=== PATIENT | male | born 1955 | race African-American/Black ===

== ENCOUNTER 2019-08-27 11:27 | Inpatient (IN) ==
[2019-08-27] MEDS ORDERED: NS 1,000 ML IV ONE (12:09)
--- NOTE | 2019-08-27 12:19 | PROVIDER DOCUMENTATION ---
HPI-General Adult - General Chief Complaint: SEPSIS ALERT - D Stated Complaint: CHILLS,RT SIDE PAIN Time Seen by Provider: 08/27/19 12:13 Source: patient Allergies/Adverse Reactions: Patient Allergies Allergy/AdvReac Type Severity Reaction Status Date / Time No Known Allergies Allergy Verified 08/27/19 11:40 Home Medications: Home Medication List Medication Instructions Recorded Confirmed Last Taken Type Amlodipine [Norvasc] 1 tab PO DAILY 08/27/19 08/27/19 Unknown History Atorvastatin Calcium [Lipitor] 1 tab PO DAILY 08/27/19 08/27/19 Unknown History Tamsulosin [Flomax] 1 cap PO DAILY 08/27/19 08/27/19 Unknown History - History of Present Illness -Gen Adult Nature of Presenting Problems: He presents to the ed with c/o fever, chills, and malaise worsening over the past week. He states that he was recently told that he needed to be on dialysis, but states that he refused this. He states that he has pain on his right flank. He denies any cough. Location of Pain/Injury: reports: chest, other (right flank) Pain Radiation: reports: no radiation Quality of Pain: reports: sharp Severity: reports: moderate Onset/Duration: reports: 1 week ago Timing: reports: still present Context/Activities at Onset: reports: none Modifying Factors: improves with: nothing Associated Symptoms: reports: back/neck pain, chest pain, fever/chills, malaise, muscle aches, nausea, weakness. denies: diaphoresis, EENT symptoms, headaches, pain with inspiration, vomiting Similar Symptoms Previously?: No Recently seen or treated by another doctor?: No Review of Systems - Adult - REVIEW OF SYSTEMS - ADULT Constitutional: reports: see HPI, chills, fever, fatique Eyes: reports: no symptoms reported Ears, Nose, Mouth & Throat: reports: no symptoms reported Cardiovascular: reports: no symptoms reported Respiratory: reports: no symptoms reported Gastrointestinal: reports: see HPI Genitourinary: reports: no symptoms reported Musculoskeletal: reports: see HPI Integumentary: reports: no symptoms reported Neurological: reports: no symptoms reported Psychiatric: reports: no symptoms reported Endocrine: reports: no symptoms reported Hematologic/Lymphatic: reports: no symptoms reported Allergic/Immunologic: reports: no symptoms reported All Other Systems: Reviewed and Negative Past History - Adult - PAST MEDICAL HISTORY-ADULT Review of Records: reports: Old Records Reviewed, Nursing Assessment Review, Medications Reviewed, Social history reviewed & non-contributory. Major Childhood Illnesses: reports: denies history Cardiovascular: reports: denies history Respiratory: reports: denies history Gastrointestinal: reports: denies history Obstetrical/Gynecological: reports: denies history Genitourinary: reports: denies history Musculoskeletal: reports: denies history Neurological: reports: denies history Endocrine/Immune: reports: denies history Other Conditions: reports: denies history - IMMUNIZATION STATUS Childhood Immunizations: See Nurse Assessment Flu Vaccine: See Nurse Assessment - FAMILY HISTORY Family History: reviewed, not pertinent - SOCIAL HISTORY Smoking: denies Substance Use: none/never Alcohol Use Frequency: never Living Situation: family Physical Exam-General - PHYSICAL EXAM-ADULT Initial Vital Signs Reviewed: Yes - CONSTITUTIONAL General Appearance: appears well, alert, no apparent distress - EYES Eyes: PERRL/EOMI - HEAD, EARS, NOSE, MOUTH & THROAT HENMT: normocephalic/atraumatic, moist mucous membranes, normal ENT inspection - NECK Neck: non-tender, full range of motion, supple - RESPIRATORY Respiratory: chest non-tender, lungs clear, normal breath sounds - CARDIOVASCULAR Cardiovascular: normal peripheral pulses, regular rate, rhythm, no edema - GASTROINTESTINAL (ABDOMEN) Abdominal Exam: normal bowel sounds, non tender - LYMPHATIC Lymphatic: no adenopathy - MUSCULOSKELETAL Back Exam: normal inspection, no CVA tenderness, no vertebral tenderness Extremity: normal range of motion, non-tender, normal gait, normal inspection - SKIN Integumentary: normal color, normal turgor, warm/dry - NEUROLOGIC Neurologic: grossly normal - PSYCHIATRIC Psych/Mental Status: normal mood/affect, normal thought content Progress - PLAN OF CARE/RESULTS Progress/Plan/Lab Results: Vital Signs - 8 hr 08/27/19 11:36 Temperature 100.5 F H Pulse Rate 134 H Respiratory Rate 36 H Blood Pressure 150/84 O2 Sat by Pulse Oximetry 95 Orders Category Date Time Status Cardiac Monitoring DIRECTED Care 08/27/19 12:11 Active IV Insertion ORDERED Care 08/27/19 12:11 Active Notify MD of + Sepsis Screen NOW Care 08/27/19 12:11 Active CHEST-PORTABLE [RAD] Stat Exams 08/27/19 12:09 Ordered BLOOD CULTURE [BLDCUL] Stat Lab 08/27/19 12:09 Uncollected CBC WITH DIFF [HEME] Stat Lab 08/27/19 12:09 Uncollected CK PROFILE [SP CHEM] Stat Lab 08/27/19 12:11 Uncollected COMPREHENSIVE METABOLIC PANEL [CHEM] Stat Lab 08/27/19 12:09 Uncollected LACTATE, PLASMA [CHEM] Stat Lab 08/27/19 12:09 Uncollected MAGNESIUM [CHEM] Stat Lab 08/27/19 12:09 Uncollected PROTIME WITH INR [COAG] Stat Lab 08/27/19 12:09 Uncollected PTT [COAG] Stat Lab 08/27/19 12:11 Uncollected TROPONIN T Stat Lab 08/27/19 12:09 Uncollected UA NIMS W/REFLEX CULT [URINALYSIS] Stat Lab 08/27/19 12:09 Uncollected 0.9% Sodium Chloride Inj [Ns] 1,000 ml Med 08/27/19 12:09 Active IV 999 mls/hr Oxygen Device Stat Oth 08/27/19 12:11 Active Result Diagrams: 08/27/19 12:35 08/27/19 12:35 - XRAY 1 XRAY: Bilateral XRAY Study: Chest Impression: Abnormal (FINDINGS: The lungs are well expanded. There are right hilar and apical surgical clips. The heart is not enlarged. The vessels are not distended. There are mild increased markings in the right base. No consolidation .. No effusion identified. IMPRESSION: Small right basilar infiltrate) - CONSULTS/PCP/HOSPITALIST Notification #1 *Consult/PCP/Hospitalist*: Dr. Carrillo Time Discussed: 14:00 Consult Disposition: Admit Departure - Departure Date of Disposition Decision: 08/27/19 Time of Disposition Decision: 14:02 DIAGNOSIS: End stage renal disease, Hyperkalemia Pneumonia Qualifiers: Pneumonia type: due to unspecified organism Laterality: right Lung location: unspecified part of lung Qualified Code(s): J18.9 - Pneumonia, unspecified organism Disposition: ADMITTED INPATIENT 09 Certified Medical Emergency: Emergent Condition: Stable Referrals and Follow-Ups: Johnny Dobbs MD [Primary Care Provider] - - Critical Care Note This patient required my direct & personal management of CC.: No Attestation - Physician/ JOHANA Attestation Patient care was provided by Advanced Practice Provider:: Yes Advanced Practice Provider:: Noah Ordonez Advanced Practice Provider documentation review:: The Mid-level provider documentation, treatment plan and medical decision making was reviewed by the physician who agrees with all treatment and medical decision making by the MLP. The physician spent face to face time with patient:: No Advanced Practice Provider documentation review:: Supervising physician onsite and consulted in the evaluation and care of this patient. The physician did not have a face to face encounter with the patient.
--- NOTE | 2019-08-27 12:26 | Diag Imaging Result Doc PS360 ---
EXAM: CHEST-PORTABLE HISTORY: sepsis alert TECHNIQUE: Chest single view COMPARISON: 02/16/2019 FINDINGS: The lungs are well expanded. There are right hilar and apical surgical clips. The heart is not enlarged. The vessels are not distended. There are mild increased markings in the right base. No consolidation.. No effusion identified. IMPRESSION: Small right basilar infiltrate Electronically signed by Holland Joyner 08/27/2019 12:23 PM
[2019-08-27 13:07] LABS: INR 1.11; PROTIME 14.4 Seconds (11.0-16.0)
[2019-08-27 13:24] LABS: BASO# 0.05 X1000 (0.0-0.2); BASO% 0.4 % (0.0-0.8); EOS# 0.03 X1000 (0.0-0.7); EOS% 0.2 % (0.0-10.0); HEMATOCRIT 37.3 % (42.0-52.0); HEMOGLOBIN 12.4 g/dL (14.0-18.0); IMM GRAN# 0.04 X1000 (0.0-0.04); IMM GRAN% 0.3 % (0.0-0.5); LYMPH# 0.79 X1000 (1.2-3.4); LYMPH% 6.4 % (20.5-51.1); MCH 26.3 PG (27-31); MCHC 33.2 g/dL (33-37); MCV 79.2 FL (81-99); MONO# 0.52 X1000 (0.11-0.59); MONO% 4.2 % (1.7-9.3); MPV 10.6 FL (7.4-10.4); NEUT# 10.84 X1000 (1.4-6.5); NEUT% 88.5 % (42.2-75.2); PLT 291 X1000 (130-400); RBC 4.71 XMIL (4.7-6.1); RDW 14.9 % (11.5-14.5); WBC 12.27 X1000 (4.8-10.8)
[2019-08-27 13:33] LABS: LYMPHS 6 % (21-51); MONO 3 % (1-9); SEGS 91 % (42-75)
[2019-08-27 13:50] LABS: URINE SOURCE CLEAN CATCH
[2019-08-27 13:53] LABS: ALBUMIN 3.5 g/dL (3.5-5.0); CALCIUM 9.4 mg/dL (8.8-10.2); CREATININE 4.1 mg/dL (0.7-1.2); POTASSIUM 6.3 mmol/L (3.5-5.1); TOTAL BILIRUBIN 0.29 mg/dL (0.20-1.00); TOTAL PROTEIN 6.9 g/dL (6.3-8.3)
[2019-08-27 14:00] LABS: BILIRUBIN URINE NEGATIVE (NEGATIVE); BLOOD URINE TRACE (NEGATIVE); COLOR YELLOW; GLUCOSE URINE NEGATIVE (NEGATIVE); KETONE URINE NEGATIVE (NEGATIVE); LEUKOCYTES URINE NEGATIVE (NEGATIVE); NITRITE URINE NEGATIVE (NEGATIVE); PROTEIN URINE 70 mg/dL (NEGATIVE); SP GRAVITY URINE 1.012; TURBIDITY URINE CLEAR (CLEAR); UROBILINOGEN URINE NORMAL (NORMAL)
[2019-08-27 14:01] LABS: UR EPITHELIAL CELLS <10 /HPF (<10); URINE BACTERIA NEGATIVE /HPF; URINE RBC <10 /HPF (<10); URINE WBC <10 /HPF (<10)
[2019-08-27] MEDS ORDERED: VELTASSA PO ONE ×2 (14:13→20:00)
[2019-08-27] MEDS ORDERED: ZITHROMAX 500 MG/NS 500 MG/250 ML IVPB IV ONE (14:25)
[2019-08-27] MEDS ORDERED: ROCEPHIN 1 GM in NS 50 ML IV ONE (14:25)
[2019-08-27] MEDS ORDERED: NS 50 ML ONE (14:30)
[2019-08-27] MEDS ORDERED: ROCEPHIN ONE (14:30)
[2019-08-27] MEDS ORDERED: KAYEXALATE PO ONE (14:49)
[2019-08-27] MEDS ORDERED: DILAUDID IV PRN (14:51)
[2019-08-27] MEDS ORDERED: NICODERM PATCH TD PRN (14:52)
[2019-08-27] MEDS ORDERED: DUONEB (A & A) INH ONE (14:57)
[2019-08-27] MEDS ORDERED: SODIUM CHLORIDE 0.9% INJ SCH (15:00)
--- NOTE | 2019-08-27 15:17 | HISTORY AND PHYSICAL ---
CHIEF COMPLAINT: Right-sided chest pain, shortness of breath, cough, wheezing, low-grade fever for the last few days. HISTORY OF PRESENT ILLNESS: He is a 64-year-old, , male patient of Dr. Dobbs with chronic kidney disease under the care of Dr. Scott. He has been refusing for dialysis. Came in with the above symptoms. Patient was seen in the emergency room. He was tachycardic, hypertensive. He had a low-grade fever. White cell count 12,000. Chest x-ray, possible infiltrate. However, he had scarring noted from the previous thoracotomy scar by Dr. Kent. I do not have the details. Potassium 6.1, creatinine 4.0, and he is willing to go for dialysis if he needs to. As a result, he has been hospitalized for right lower lobe pneumonia with pleurisy and also treat for hyperkalemia and evaluation of chronic kidney disease. PAST MEDICAL HISTORY: 1. Tobacco abuse. 2. Hypertension. 3. BPH. 4. Hyperlipidemia. 5. Chronic kidney disease stage 5. PAST SURGICAL HISTORY: Right thoracotomy scar by Dr. Kent, removed some type of cancer. MEDICINES: Lipitor 20 mg daily, amlodipine 5 mg daily, Flomax 0.4 daily. ALLERGIES: Not known. SOCIAL HISTORY: Single. Disabled. Smoking 1 pack a day. No drug abuse, alcohol abuse. FAMILY HISTORY: Both parents of old age with a stroke. REVIEW OF SYSTEMS: HEENT: No headache. No vision problem. No earache. No sore throat. Neck: No neck pain. No goiter. Cardiopulmonary: Right-sided chest pain, shortness of breath, cough, wheezing. GI: No nausea, vomiting, abdominal pain. No constipation. : History of BPH symptoms. No swelling of feet. No joint pain. Neurologic: No focal symptoms or weakness. PHYSICAL EXAMINATION: VITAL SIGNS: Low-grade fever, tachycardic, hypertension, pulse is 130, blood pressure is 138/99. HEENT: Atraumatic, normocephalic. Pupils equal, reactive to light. Nose and Throat: Postnasal drainage. No teeth noted. NECK: Supple. No goiter. No lymphadenopathy. JVD is not elevated. CHEST: There is expiratory wheezing. Extensive pleurisy on the right side and a thoracotomy scar noted on the right side of the chest. HEART: Sounds are regular. Tachycardic. GASTROINTESTINAL: Belly is soft, nontender. Good bowel sounds. EXTREMITIES: No peripheral edema. NEUROLOGIC: No obvious deficits noted. INVESTIGATIONS: White cell count 12.2, hematocrit 37.3, platelets 291,000. Sodium 134, potassium 6.3, chloride 102, BUN 60, creatinine 4.1, glucose 114. LFTs and cardiac enzymes were negative. Urinalysis is clear. EKG: Sinus tachycardia, nothing acute. Chest x-ray: There are right hilar, apical surgical clips and scarring, and possible mild infiltrate. Renal ultrasound: Hyperechoic atrophic kidneys, bilateral renal cysts in 2017. ASSESSMENT AND PLAN: 1. A 64-year-old, black gentleman admitted to the hospital with right-sided chest pain, pleurisy with underlying infiltrate. Plan is intravenous Rocephin, incentive spirometry, intravenous steroids, and bronchodilators. 2. Hypertension, on Norvasc. 3. Hyperlipidemia, on Lipitor. 4. Nicotine abuse, on Nicotrol patch. 5. Hyperkalemia. Kayexalate was given. 6. End-stage kidney disease. Dr. Scott consulted. He is willing to go for dialysis. Consult with Dr. Scott. We will also get ultrasound of the kidneys. Dr. Scott and Dr. Dobbs are going to follow up. cc: Forest Carrillo MD
[2019-08-27] MEDS: NEXIUM IV SCH (16:02)
[2019-08-27] MEDS: NS 1,000 ML IV SCH (16:03)
[2019-08-27] MEDS ORDERED: TYLENOL PO PRN (16:51)
--- NOTE | 2019-08-27 18:57 | EKG Report ---
Test Performed on : 08/27/2019 11:50:25 AM Test Reason : cp Blood Pressure : / mmHG Vent. Rate : 132 BPM Atrial Rate : 132 BPM P-R Int : 136 ms QRS Dur : 076 ms QT Int : 294 ms P-R-T Axes : 084 053 075 degrees QTc Int : 435 ms Sinus tachycardia. Possible Anterior infarct , age undetermined ST & T wave abnormality, consider lateral ischemia Abnormal ECG No previous ECGs available Unconfirmed Result
[2019-08-27 19:02] LABS: ALBUMIN 2.5 g/dL (3.5-5.0); CALCIUM 8.3 mg/dL (8.8-10.2); CREATININE 4.4 mg/dL (0.7-1.2); PHOSPHORUS 3.2 mg/dL (2.7-4.5); POTASSIUM 5.4 mmol/L (3.5-5.1)
[2019-08-27] MEDS ORDERED: LOKELMA POWDER PACKET PO SCH (20:00)
[2019-08-27] MEDS: SOLU-MEDROL IV SCH (20:34)
--- NOTE | 2019-08-28 06:59 | PROGRESS NOTE ---
DATE: 08/28/2019 SUBJECTIVE: A 64-year-old, gentleman admitted with chest congestion, cough, fever, chills, expectoration, a small amount of blood, chest pain. The patient was sick for 2 to 3 days. The patient also had sharp chest wall pain. Mild nausea. No vomiting. No dysuria or hematuria. The patient does have hypertension, hyperlipidemia, chronic kidney disease, BPH, refusing dialysis. No diarrhea, blood, or mucus in the stool. No nausea or vomiting. Admission history and physical noted. OBJECTIVE: Vital Signs: Blood pressure 121/63, pulse 93, respirations 23, temperature 98 degrees. Skin: No rash or petechiae. HEENT: Head atraumatic, normocephalic. [place] conjunctivae. Anicteric sclerae. Pupils reacting to light. Neck: Supple. No JVD. Lungs: Bibasilar crepitations. CVS: S1 and S2 heard. Abdomen: Soft, nontender. Bowel sounds present. Extremities: No cyanosis, clubbing. No acute DVT. 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 Able to move all 4 limbs. Laboratory Data: Done yesterday, noted. Patient had leukocytosis with left shift. PTT 41, PT/INR 1.11. Blood gas: PH 7.32, pCO2 of 29, PO2 was 133. Electrolytes: BUN was 5.4. Urinalysis results reviewed. Chest x-ray: Small right basilar infiltrate. ASSESSMENT: The patient's problems include: 1. Right basilar pneumonia. 2. Chronic kidney disease stage 5. 3. Hypertension. 4. Benign prostatic hypertrophy. 5. Hyperlipidemia. PLAN: The patient's chest pain was more of pleuritic. Continue current treatment. Close observation. IV antibiotics. Continue smoking cessation. The patient understood and agreed. cc: Johnny Dobbs MD
[2019-08-28 07:09] LABS: ALB/GLOB RATIO 0.7; ALBUMIN 2.7 g/dL (3.5-5.0); BASO# 0.02 X1000 (0.0-0.2); BASO% 0.2 % (0.0-0.8); CALCIUM 8.8 mg/dL (8.8-10.2); HEMATOCRIT 34.2 % (42.0-52.0); HEMOGLOBIN 11.2 g/dL (14.0-18.0); IMM GRAN# 0.04 X1000 (0.0-0.04); IMM GRAN% 0.3 % (0.0-0.5); LYMPH# 0.46 X1000 (1.2-3.4); LYMPH% 3.7 % (20.5-51.1); MCH 26.1 PG (27-31); MCHC 32.7 g/dL (33-37); MCV 79.7 FL (81-99); MONO# 0.25 X1000 (0.11-0.59); MPV 10.8 FL (7.4-10.4); NEUT% 93.8 % (42.2-75.2); PLT 255 X1000 (130-400); RBC 4.29 XMIL (4.7-6.1); RDW 14.9 % (11.5-14.5); TOTAL BILIRUBIN 0.26 mg/dL (0.20-1.00); TOTAL PROTEIN 6.7 g/dL (6.3-8.3); WBC 12.27 X1000 (4.8-10.8)
[2019-08-28 07:28] LABS: POTASSIUM 6.3 mmol/L (3.5-5.1)
[2019-08-28 07:34] LABS: BANDS 2 % (0-1); LYMPHS 2 % (21-51); SEGS 96 % (42-75)
[2019-08-28 07:35] LABS: LARGE PLATELETS 1+
--- NOTE | 2019-08-28 07:47 | EKG Report ---
Test Performed on : 08/28/2019 06:50:26 AM Test Reason : cp Blood Pressure : / mmHG Vent. Rate : 104 BPM Atrial Rate : 104 BPM P-R Int : 152 ms QRS Dur : 080 ms QT Int : 354 ms P-R-T Axes : 084 049 082 degrees QTc Int : 465 ms Sinus tachycardia. Lateral T wave assymetry Borderline ECG When compared with ECG of 27-AUG-2019 11:50, (Unconfirmed) T wave inversion no longer evident in Lateral leads Confirmed by Khloe HARRISON, Miguel Penny ([id number]) on 08/28/2019 8:56:21 AM
[2019-08-28] MEDS ORDERED: KAYEXALATE PO ONE (07:49)
[2019-08-28] MEDS ORDERED: HUMULIN R IV ONE (08:03)
[2019-08-28] MEDS ORDERED: D50W SYRINGE IV ONE (08:03)
[2019-08-28] MEDS ORDERED: ALBUTEROL 0.5% INH CONC FOR HYPERKALEMIA INH ONE (08:04)
--- NOTE | 2019-08-28 08:09 | Diag Imaging Result Doc PS360 ---
EXAM: CHEST-2 VIEWS HISTORY: hypoxia TECHNIQUE: Chest two views COMPARISON: 08/27/2019 FINDINGS: The lungs are well expanded. There are right hilar and apical surgical clips. The heart is not enlarged. The vessels are not distended. Scarring versus small infiltrates inferiorly in the right lung.. No pleural effusions. IMPRESSION: Stable chest Electronically signed by Holland Joyner 08/28/2019 8:06 AM
[2019-08-28] MEDS: SYMBICORT 160/4.5 MICROGM INHALER INH SCH ×2 (08:45→19:51)
[2019-08-28] MEDS: SOLU-MEDROL IV SCH ×2 (08:50→21:02)
[2019-08-28] MEDS: NORVASC PO SCH (08:51)
[2019-08-28] MEDS: ZITHROMAX PO SCH (08:51)
[2019-08-28] MEDS: FLOMAX PO SCH (08:58)
[2019-08-28] MEDS: SODIUM BICARBONATE PO SCH ×2 (08:58→21:02)
--- NOTE | 2019-08-28 09:18 | CONSULTATION ---
DATE OF CONSULTATION: 08/28/2019 REASON FOR ADMISSION: Right-sided chest pain associated with increased work of breathing, low- grade fever times 2 to 3 days before his admission. REASON FOR CONSULT: Acute kidney injury on chronic kidney disease stage 4B 5. CONSULTING PHYSICIAN: Dr. Carrillo. HISTORY OF PRESENT ILLNESS: Mr. Veliz is a 64-year-old male who is known to our outpatient services for chronic kidney disease stage 4/5. Patient's baseline creatinine has been approximately 3.2 to 3.8 in our office and has been followed on a monthly basis. Last time patient was seen in our office was May. The patient's last creatinine had taken a bump from 3.5 up to 5.8 with an estimated GFR of 12%. Patient had been set up for an AV fistula mapping and once completed, was to be referred to a surgeon for an AV fistula placement to start dialysis. He was scheduled back in 1 month in June. He did not show. He received a no- show letter and had not been seen in our office. Unfortunately, during this period of time patient states that he has not been having any difficulty with uremic symptoms except occasional dyspnea on exertion, but now appears to have presented to the emergency room with a new onset chest pain, right-sided. It does radiate from the abdomen and the right chest into the midabdominal area. He denies any diaphoresis, any fever or chills. States that his breathing has improved though he has been at rest since hospitalization. Denies any nausea, vomiting, or diarrhea. The patient has no complaints of swelling. States his blood pressure is well at home. In the emergency room he was found to be tachycardic and hypertensive, low-grade fever was present. White cell count was 12. Chest x-ray showed possible mild infiltrates. His potassium on arrival was 6.1 with a creatinine of 4. He did indicate that he would be willing to start dialysis if indicated and needed during this hospital stay. The patient was subsequently hospitalized for right lower lobe pneumonia with pleurisy for hyperkalemia. This was treated medically and the patient's potassium came down to 5.4 yesterday evening, now up to 6.3. His BUN and creatinine remain stable with a BUN of 59 and creatinine of 4. PAST MEDICAL HISTORY: 1. Chronic kidney disease stage 4B/5. Patient's baseline creatinine last in our office was 5.8, currently at 4, which is close to his baseline prior to May. 2. Tobacco abuse. 3. Hypertension. 4. BPH. 5. Hyperlipidemia. 6. Anemia of chronic disease. PAST SURGICAL HISTORY: 1. Right thoracotomy scar by Dr. Kent. 2. Removed some type of cancer in the past. SOCIAL HISTORY: He is single. He lives with his cousin. Denies alcohol or illicit drug use. Current smoker 1 pack per day. FAMILY HISTORY: Both parents from a stroke. ALLERGIES: Listed as no known drug allergies. HOME MEDICATIONS: 1. Atorvastatin. 2. Norvasc. 3. Flomax. REVIEW OF SYSTEMS: Times 10 with pertinent positives listed above in the HPI. MOST RECENT VITAL SIGNS: Temperature 98 degrees, blood pressure 121/63, heart rate 93, respirations 23. He is on 2 L nasal cannula. Last recorded saturation 97%. He has had 856 in, 310 out to void. LABS: Sodium is 139, potassium 6.3, chloride 110, CO2 16, BUN 59, creatinine 4, glucose 121, anion gap of 13, calcium 8.8, albumin 2.7, white count 12.27, hemoglobin 11.2, hematocrit 34.2, with a platelet count of 255,000. ABGs pH 7.32, CO2 29, PO2 133 with a bicarbonate of 17.1 on 2 L. PHYSICAL EXAMINATION: General: This is a 64-year-old male who is currently resting quietly in bed. He appears chronically ill. He is in no acute distress. Skin: Warm and dry. HEENT: Normocephalic, atraumatic. Conjunctiva is pale pink. He has YOSEPH. Mucous membranes are moist. Poor dentition. Neck: Supple. Trachea midline. No evidence of JVD. Cardiovascular: Regular rate and rhythm. He is tachycardic on the monitor. No murmur or gallop appreciated. Lungs: Are clear to auscultation bilaterally. Equal excursion on O2. Diminished to the bases. Abdomen: Soft, nontender upon palpation. Genitourinary: Not inspected. The patient has adequate urine output documented to void. Extremities: No edema. No clubbing or cyanosis. Neurological: He is a good historian. Alert and oriented x3. LABORATORY: The patient had a renal ultrasound indicating hyperechoic atrophic kidneys bilaterally with bilateral renal cysts from 2017. ASSESSMENT AND PLAN: 1. Chronic kidney disease stage 4B/5. Patient's BUN and creatinine are stable. BUN of 59 with a creatinine of 4. We will have patient start a 24 hour urine collection to evaluate his renal status during this hospital stay. We will plan to get venous mapping done. The patient has no acute symptoms requiring hemodialysis. We will continue to monitor and follow. He does state that he is willing to have hemodialysis. 2. Electrolytes and acid-base balance. The patient's potassium is 6.3. It appears that has not been treated this a.m. We will order an amp of D50 10 units of regular insulin, albuterol, hyperkalemia protocol, and will start the patient on Veltassa on a daily basis. We will recheck labs this afternoon at 2 and reevaluate the patient's status. 3. Acid-base balance CO2 of 16. We will start him on sodium bicarbonate 1300 mg b.i.d. Continue to monitor. 4. Anemia. This is close to target. 5. Pneumonia. This is currently being treated on renal dosed antibiotics. I would like to thank you for allowing us to follow with this patient. Dictated by GERMANIA Hamilton for Jose Carlos Scott MD Face to face encounter, data reviewed, discussed with Paul Ch on 08/28/19. I agree with the above assessment and plan of care. cc: GERMANIA Hamilton MD Bharat K. Vakharia, MD MTDD
[2019-08-28] MEDS: NS 1,000 ML IV SCH (12:35)
--- NOTE | 2019-08-28 13:53 | ECHO REPORT ---
ORDER DATE: 08/27/2019 MEASUREMENTS: 1. Interventricular septum 1.0. 2. Left ventricular posterior wall 1.0. 3. Diastolic diameter 5.3. 4. Left atrium 3. 5. Aorta 3.6. SUMMARY: 1. Aortic valve leaflets were trileaflet. 2. Mitral valve was normal. 3. Tricuspid valve was normal. 4. Pulmonic valve was normal. 5. Doppler studies revealed mild tricuspid regurgitation. Peak velocity across the tricuspid valve was 3 m/sec. 6. Pulmonary artery systolic pressure of 46 to 50 mmHg. 7. Normal left ventricular cavity size with reduced systolic function. Estimated ejection fraction of 40%. There is mild global hypokinesis. 8. There is moderate mitral regurgitation. 9. Peak velocity across the aortic valve less than 2 m/sec. There is no aortic stenosis. There is moderate aortic regurgitation. 10. There is mild tricuspid regurgitation. 11. Mild pulmonary regurgitation. 12. There is no pericardial effusion or obvious intracardiac mass or thrombus seen. cc: MD Forest Vasquez MD Bharat K. Vakharia, MD
[2019-08-28] MEDS: VELTASSA PO SCH (14:22)
[2019-08-28] MEDS: ROCEPHIN 1 GM in NS 50 ML IV SCH (14:23)
[2019-08-28] MEDS: NEXIUM IV SCH (14:23)
[2019-08-28 14:27] LABS: ALBUMIN 2.8 g/dL (3.5-5.0); CALCIUM 8.5 mg/dL (8.8-10.2); CREATININE 4.3 mg/dL (0.7-1.2); PHOSPHORUS 4.2 mg/dL (2.7-4.5)
[2019-08-28 16:33] LABS: CALCIUM 8.9 mg/dL (8.8-10.2); CREATININE 4.5 mg/dL (0.7-1.2); POTASSIUM 4.1 mmol/L (3.5-5.1)
[2019-08-28 18:05] LABS: HEMOGLOBIN A1C 5.9 % (4.8-6.0)
[2019-08-28] MEDS ORDERED: LIPITOR PO SCH (21:00)
[2019-08-29 07:19] LABS: ALBUMIN 2.2 g/dL (3.5-5.0); CALCIUM 8.8 mg/dL (8.8-10.2); CREATININE 4.5 mg/dL (0.7-1.2)
[2019-08-29] MEDS: SYMBICORT 160/4.5 MICROGM INHALER INH SCH ×2 (08:30→19:17)
--- NOTE | 2019-08-29 08:39 | PROGRESS NOTE ---
DATE: 08/29/2019 Mr. Veliz is feeling better. Chest congestion and cough improving. No typical chest pain. Denied any fever or chills. No nausea or vomiting. Oral intake is fair. Patient is tachycardic at time. OBJECTIVE: His vital signs noted. Neck: Is supple. No JVD. Lungs: Bilateral good air entry present. Occasional wheezing. CVS: S1 and S2 heard. Abdomen: Soft, nontender. Bowel sounds present. 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 LABORATORY DATA: Done yesterday noted. His hyperkalemia improving. Blood gas also noted. Patient admitted with chest pain. AR ruled out by negative cardiac isoenzymes. The patient does have chronic kidney disease. Hyperkalemia improved. Acute bronchitis. Chest x-ray was negative for pneumonia. Tachycardia, I am going to add beta kathy. Continue the rest of the treatment and close observation. PLAN: Overall plan discussed with the patient and he is in agreement. cc: Johnny Dobbs MD
[2019-08-29] MEDS: SODIUM BICARBONATE PO SCH ×2 (08:50→20:12)
[2019-08-29] MEDS: ZITHROMAX PO SCH (08:50)
[2019-08-29] MEDS: TOPROL XL PO SCH (08:50)
[2019-08-29] MEDS: NORVASC PO SCH (08:50)
[2019-08-29] MEDS: PREDNISONE PO SCH (08:50)
[2019-08-29] MEDS: FLOMAX PO SCH (08:51)
[2019-08-29 09:03] LABS: BLOOD TYPE ARTERIAL; SAMPLE BLOOD; pH(98.6) 7.32 (7.35-7.45)
[2019-08-29 09:04] LABS: HCO3-(ACT) 17.1 mmoll (20.0-26.0); METHB 1.1 % (0.0-1.5); O2(CT) 15.4 mL/dL (15.0-23.0); O2HB 96.8 % (95.0-99.0); PCO2(98.6) 29 mmHg (35-45); PO2(98.6) 133 mmHg (60-100); SAO2 99.5 % (95.0-100.0); THB 11.1 g/dL (11.5-17.4)
[2019-08-29 09:05] LABS: ALLEN TEST YES; MODALITY CANNULA
[2019-08-29 09:36] LABS: UR CREATININE 59.4 mg/dL (14-26); UR CREATININE TOTAL 784.1 mg/24 (800-1800); UR PROTEIN 36.8 mg/dL
[2019-08-29 09:37] LABS: CREATININE 4.5 mg/dL (0.7-1.2)
[2019-08-29] MEDS: VELTASSA PO SCH (13:54)
[2019-08-29] MEDS: ROCEPHIN 1 GM in NS 50 ML IV SCH (15:37)
[2019-08-29] MEDS: NEXIUM IV SCH (17:09)
--- NOTE | 2019-08-29 20:29 | NEPHROLOGY PROGRESS NOTE ---
DATE: 08/29/2019 TIME SEEN: 0630. SUBJECTIVE: Mr. Veliz is resting quietly in bed. States that he is feeling well. Denies chest pain or increased work of breathing. VITAL SIGNS: Temperature 98 degrees, blood pressure 125/76, heart rate 113, respirations 26. He is on 2 L nasal cannula. Last recorded saturation 95%. He has had 150 in and 250 out to void. LABS: Sodium is 136, potassium 5, chloride is 105, CO2 16, BUN 65, creatinine 4.5, glucose 144. The patient's anion gap is 15. His calcium is 8.8, phosphorus is 5, albumin 2.2. The patient had a 24 hour urine showing a creatinine clearance of 12% with a total proteinuria of 486. This appears to be an inadequate sample with a total urine less than 800 mL. Blood cultures are negative after 48 hours. PHYSICAL EXAMINATION: General: This is a 64-year-old male, resting quietly in bed. He appears chronically ill, in no acute distress. Skin: Warm and dry. HEENT: Normocephalic, atraumatic. Conjunctiva is pale. He has YOSEPH. Mucous membranes are dry. Poor dentition. Neck: Supple. Trachea midline. No evidence of JVD. Cardiovascular: Regular rate and rhythm. Lungs: Clear to auscultation bilaterally. Equal excursion on room air today. Abdomen: Soft, nontender. Positive bowel sounds. Genitourinary: Not inspected. Adequate urine out to void. Extremities: No edema. No clubbing or cyanosis. Neurological: He is alert to person, place, and most recent events. ASSESSMENT AND PLAN: 1. Chronic kidney disease stage 4B/5. The patient's BUN and creatinine are stable. Creatinine remains in the 4.5 range. A 24 hour urine appears to be an inadequate sample with a creatinine clearance of 12%. The patient has no symptoms of uremia. We have requested that he keep strict inputs and outputs. We also have requested vein mapping during this hospital stay. 2. Electrolytes and acid-base balance. The patient's hyperkalemia has been controlled with Veltassa. We continue on sodium bicarbonate. We will continue to monitor. 3. Anemia. This is stable. 4. Pneumonia. He is on renal dosed antibiotics. I would like to thank you for allowing us to follow with this patient. Dictated by GERMANIA Hamilton for Jose Carlos Scott MD Face to face encounter, data reviewed, discussed with Paul Ch on08/29/19. I agree with the above assessment and plan of care. cc: GERMANIA Hamilton MD Bharat K. Vakharia, MD [facility]ENTERMegan
--- NOTE | 2019-08-30 07:24 | PROGRESS NOTE ---
DATE: 08/30/2019 SUBJECTIVE: Mr. Veliz is doing better. He does have mild cough. No unusual expectoration. No high-grade fever or chills. Denied any nausea or vomiting. Oral intake is fair. No orthopnea or PND. His vital signs noted. I started patient on beta kathy for tachycardia which he is tolerating it well. OBJECTIVE: Vital Signs: Noted. Neck: Supple. No JVD. Lungs: Bilateral occasional wheezing. Cardiovascular: S1 and S2 heard. Abdomen: Soft, nontender. Bowel sounds present. RESIDENTIAL TREATMENT STAFF: Alert, awake, able to move all 4 limbs and Nephrology recommendation noted. CONSIDERATION: 1. Acute asthmatic bronchitis stage 4 to 5. 2. Chronic kidney disease. 3. Hypertension. 4. Gastritis. PLAN: Plan is to continue current treatment. Possible discharging patient home today. Encouraged patient to quit smoking. cc: Johnny Dobbs MD
[2019-08-30 07:38] LABS: ALBUMIN 2.8 g/dL (3.5-5.0); CALCIUM 9.2 mg/dL (8.8-10.2); PHOSPHORUS 4.5 mg/dL (2.7-4.5); POTASSIUM 4.2 mmol/L (3.5-5.1)
[2019-08-30] MEDS: SYMBICORT 160/4.5 MICROGM INHALER INH SCH (07:52)
[2019-08-30] MEDS ORDERED: NICODERM PATCH TD SCH (09:00)
[2019-08-30] MEDS: FLOMAX PO SCH (09:01)
[2019-08-30] MEDS: ZITHROMAX PO SCH (09:02)
[2019-08-30] MEDS: TOPROL XL PO SCH (09:02)
[2019-08-30] MEDS: PREDNISONE PO SCH (09:02)
[2019-08-30] MEDS: NORVASC PO SCH (09:02)
[2019-08-30] MEDS: SODIUM BICARBONATE PO SCH (09:02)
--- NOTE | 2019-08-30 11:37 | NEPHROLOGY PROGRESS NOTE ---
DATE: 08/30/2019 DATE AND TIME OF EXAM: 08/30/2019 at 0645 hours. SUBJECTIVE: Mr. Veliz is resting quietly in bed. States that he is feeling better. Hopes to go home today. OBJECTIVE: His most recent vital signs: Temperature 98.1 degrees, blood pressure 142/82, heart rate 93, respirations are 18, he is on 2 L nasal cannula, last recorded saturation 96%. He has had 50 mL recorded in, 600 out to void. General: On physical examination, this is a 64-year-old male resting quietly in bed. He appears chronically ill in no acute distress. Skin: Warm and dry. HEENT: Normocephalic, atraumatic. Conjunctiva is pale pink. He has YOSEPH. Mucous membranes are dry. Neck: Supple. Trachea midline. No evidence of JVD. Cardiovascular: Regular rate and rhythm. S4 is present. Lungs: Clear to auscultation on the anterior. He remains on O2 support. Abdomen: Soft, round, nontender. Positive bowel sounds. Genitourinary: Not inspected. Patient has voided adequate amount documented. Extremities: Have no edema. No clubbing or cyanosis. Neurological: Alert to person and to place and most recent events. LABORATORY DATA: Sodium 147, potassium 4.2, chloride 111, CO2 18. BUN 63, creatinine 4, glucose 96. Anion gap of 18, calcium 9.2, phosphorus 4.5, albumin 2.8. Hemoglobin of 11.2, previously completed. ASSESSMENT: 1. Chronic kidney disease stage IV-V. Patient's BUN and creatinine have remained stable during his hospital stay. Urine output is adequate. We will plan for follow up in our office. He was to have vein mapping prior to his discharge. 2. Electrolytes and acid-base balance; these are close to target. Patient remains on Veltassa and sodium bicarbonate. 3. Anemia; this remains stable, close to target. 4. Pneumonia. Patient remains on renal-dosed antibiotics. PLAN: We have instructed patient that if he is discharged, he is to follow up in our office in 2 to 3 weeks with labs. I would like to thank you for allowing us to follow with this patient. Dictated by GERMANIA Hamilton for Jose Carlos Scott MD Face to face encounter, data reviewed, discussed with Paul Ch on 08/30/19. I agree with the above assessment and plan of care. cc: GERMANIA Hamilton MD Bharat K. Vakharia, MD MTDD
[2019-08-30] MEDS: VELTASSA PO SCH (11:57)
[2019-08-30] MEDS: NEXIUM IV SCH (14:08)
[2019-08-30] MEDS: ROCEPHIN 1 GM in NS 50 ML IV SCH (14:11)
[2019-08-30 17:10] VITALS: BP 126/84
--- NOTE | 2019-08-31 09:20 | Extremity Venous Study ---
PROCEDURE NAME: Vein Map/Hemodialysis Anival Arms - 08/28/2019 REFERRING PRACTITIONER: DR. Garcia. READING PHYSICIAN: Timmy Hurtado MD. PRODUCTION SCHEDULER: Jean INDICATION: Evaluation of arteriovenous fistula formation in either upper extremity. FINDINGS: The cephalic and basilic veins were imaged bilaterally in the upper arms. In the right upper arm the cephalic vein is not seen. The basilic veins are also not seen in the upper arm on either side. All 4 veins are very small with occasional measurements over 2 mm, but most measurements under 2 mm. INTERPRETATION: There are no suitable veins for arteriovenous fistula formation in either upper extremity. The patient should be considered for brachial axillary graft. Of note, the brachial artery was measured at 4.5 mm on the right and 3.8 mm on the left. cc: MD Sheridan Cuellar CRNP Bharat K. Vakharia, MD
--- NOTE | 2019-08-31 18:54 | DISCHARGE SUMMARY ---
ADMISSION DATE: 08/27/2019 DISCHARGE DATE: 08/30/2019 FINAL DISCHARGE DIAGNOSES: 1. Acute asthmatic bronchitis, possible pneumonia. 2. Stage 4 to 5 chronic kidney disease. 3. Hypertension. 4. Hyperlipidemia. 5. Tobacco abuse. 6. Hyperkalemia. 7. Gastritis and reflux disease. 8. Benign prostatic hypertrophy. HISTORY: Mr. Veliz a 64-year-old gentleman admitted with right-sided chest pain, cough, chest congestion, shortness of breath, and feverish feeling. The patient had 100.5 to 101 temperature. Initially, patient was tachycardic. Patient was treated with IV antibiotics, pulmonary toilet, IV fluids, and symptomatic treatment. His clinical condition stabilized and improved. Nephrology consult obtained with Dr. Scott. The patient had vein mapping done. Patient is still making urine. They are going to consider AV fistula, and consider dialysis as an outpatient when the fistula is ready. Overall, patient is doing better. His respiratory rate improved. I put him on small dose of beta kathy. Oral intake improved. No high-grade fever or chills. Leukocyte count was satisfactory. The patient was ambulating well in the hallway. The patient was eager to go home. Vital signs remained stable. I evaluated the patient again this evening, and patient was stable to go home. I had lengthy discussion with the patient about smoking cessation and take medicine regularly. I discharged him on oral antibiotics. Follow up with me in 1 week tapering dose of prednisone. Bronchodilator treatment. Fall precautions. The patient was given sodium bicarbonate 1300 mg b.i.d., Toprol-XL, Veltassa 8.4 g daily for a few more days. Continue home medicine. In case of more distress, call us back or go to the emergency room. cc: Johnny Dobbs MD
== END 2019-08-30 18:56 | disposition home or self-care (01) | DRG 202 ==
LOC: ED 11:27 → 2N 14:35
PROVIDERS: ADMIT Internal Medicine; ATTEND Internal Medicine

== ENCOUNTER 2019-11-16 18:58 | Inpatient (IN) ==
[2019-11-16] MEDS ORDERED: AMIDATE ONE (19:10)
[2019-11-16] MEDS ORDERED: DIPRIVAN 1% IV STA (19:19)
[2019-11-16] MEDS ORDERED: DIPRIVAN 1% 1,000 MG/100 ML BOTTLE IV SCH (19:30)
[2019-11-16] MEDS ORDERED: DIPRIVAN 1% 1,000 MG/100 ML BOTTLE ONE (19:32)
[2019-11-16 19:51] LABS: ALLEN TEST YES; BE -7.4 mmoll (-3.0-3.0); BLOOD TYPE ARTERIAL; HCO3-(ACT) 19.1 mmoll (20.0-26.0); METHB 0.9 % (0.0-1.5); O2(CT) 17.4 mL/dL (15.0-23.0); O2HB 95.6 % (95.0-99.0); PO2(98.6) 242 mmHg (60-100); SAMPLE BLOOD; SAO2 100.3 % (95.0-100.0); SRATE 12 BPM; THB 12.5 g/dL (11.5-17.4); TVOL 500 mL
[2019-11-16 19:53] LABS: MODALITY VENTILATOR
[2019-11-16 19:56] LABS: pH(98.6) 7.11 (7.35-7.45)
[2019-11-16 19:57] LABS: PCO2(98.6) 73 mmHg (35-45)
[2019-11-16 20:04] LABS: BASO# 0.03 X1000 (0.0-0.2); BASO% 0.4 % (0.0-0.8); EOS# 0.14 X1000 (0.0-0.7); EOS% 1.8 % (0.0-10.0); HEMATOCRIT 39.6 % (42.0-52.0); HEMOGLOBIN 12.2 g/dL (14.0-18.0); IMM GRAN# 0.02 X1000 (0.0-0.04); IMM GRAN% 0.3 % (0.0-0.5); LYMPH% 30.4 % (20.5-51.1); MCH 26.4 PG (27-31); MCHC 30.8 g/dL (33-37); MCV 85.7 FL (81-99); MONO% 2.5 % (1.7-9.3); MPV 11.3 FL (7.4-10.4); NEUT# 5.11 X1000 (1.4-6.5); NEUT% 64.6 % (42.2-75.2); PLT 177 X1000 (130-400); RBC 4.62 XMIL (4.7-6.1); RDW 17.4 % (11.5-14.5)
[2019-11-16] MEDS ORDERED: AMIDATE IV ONE (20:13)
[2019-11-16] MEDS ORDERED: ZEMURON IV ONE (20:15)
[2019-11-16 20:23] LABS: ACETAMINOPHEN < 1.2 ug/mL (10-30); AGAP 15; ALB/GLOB RATIO 1.5; ALBUMIN 3.7 g/dL (3.5-5.0); ALKALINE PHOSPHATASE 118 U/L (32-122); BUN 50 mg/dL (8-22); CALCIUM 8.9 mg/dL (8.8-10.2); CHLORIDE 108 mmol/L (98-107); COSMO 307; ESTIMATED GFR 9; GLUCOSE 184 mg/dL (70-104); GOT 567 U/L (10-34); GPT 412 U/L (10-44); POTASSIUM 5.5 mmol/L (3.5-5.1); SALICYLATES < 3.00 mg/dL (3-10); SODIUM 145 mmol/L (136-145); TCO2 22 mmol/L (25-35); TOTAL BILIRUBIN 0.29 mg/dL (0.20-1.00); TOTAL PROTEIN 6.2 g/dL (6.3-8.3)
[2019-11-16 20:26] LABS: CREATININE 6.6 mg/dL (0.7-1.2)
[2019-11-16] MEDS ORDERED: D50W SYRINGE IV ONE (20:28)
[2019-11-16] MEDS ORDERED: CALCIUM GLUCONATE 1 GM in NS 50 ML IV ONE (20:28)
[2019-11-16 20:36] LABS: UR COCAINE QUAL NONE DETECTED (NONE DETECT)
--- NOTE | 2019-11-16 20:36 | Diag Imaging Result Doc PS360 ---
CHEST-PORTABLE - 11/16/2019 INDICATION: resp failure COMPARISON: None FINDINGS: There is an endotracheal tube in good position at T4. There is diffuse infiltrate throughout the left lung. There is some infiltrate or fibrosis in the right lung base as well to a lesser extent. Heart size is top normal. No pneumothorax or significant pleural effusion. IMPRESSION: Dense infiltrate throughout the left lung concerning for pneumonia or aspiration. Electronically signed by Sherif Kumari 11/16/2019 8:34 PM
[2019-11-16 20:59] LABS: UR AMPHETAMINES QUAL NONE DETECTED (NONE DETECT); UR BARBITUATES QUAL NONE DETECTED (NONE DETECT); UR BENZODIAZEPIN QUAL NONE DETECTED (NONE DETECT); UR CANNABINOIDS QUAL NONE DETECTED (NONE DETECT); UR METHADONE QUAL NONE DETECTED (NONE DETECT); UR OPIATES QUAL NONE DETECTED (NONE DETECT); UR OXYCODONE QUAL NONE DETECTED (NONE DETECT); UR PCP QUAL NONE DETECTED (NONE DETECT)
--- NOTE | 2019-11-16 21:31 | PROVIDER DOCUMENTATION ---
This chart was entered by Lane Colorado Scribe, acting as scribe for Panda Wong MD. HPI-Cardiopulmonary Arrest - General Chief Complaint: Shortness of Breath Stated Complaint: RESP DISTRESS Time Seen by Provider: 11/16/19 19:18 Source: family, EMS (child life therapist) Allergies/Adverse Reactions: Allergies Allergy/AdvReac Type Severity Reaction Status Date / Time No Known Allergies Allergy Verified 11/16/19 19:57 Home Medications: Home Medication List Medication Instructions Recorded Confirmed Last Taken Type Amlodipine [Norvasc] 5 mg PO DAILY 11/16/19 11/16/19 Unknown History Metoprolol Succinate E.r. [Toprol 25 mg PO DAILY 11/16/19 11/16/19 Unknown History Xl] Sodium Bicarbonate 1,000 mg PO BID 11/16/19 11/16/19 Unknown History Tamsulosin [Flomax] 0.4 mg PO DAILY 11/16/19 11/16/19 Unknown History - History of Present Illness-C/P Arrest Initial Comments: Pt presents to the ed v/a EMS for Resp. Distress. EMS reports being called for acute Resp. Distress and told hx of lung cancer in remission. EMS states "tried to keep Sats up w/ C-pap (EMS states Sats stayed around 50%) , incubation was tried in route but pt became Lethargic and combative." pt on arrival is combative and restrained in room. EMS stated pt is in renal failure. Per the pt's family, who appears at bedside later, the pt had been acting strangely all day, and shortly before EMS was called, began to complain that he could not breathe; by the time EMS arrived was having acute distress, and was starting to become combative. The pt is a renal patient - he has only recently had the fistula placed, but had not yet started dialysis. Reason for Code Blue?: other (respiratory distress) Treatment initiated prior to doctor arrival?: Initiated other (C-pap) Review of Systems - Adult - REVIEW OF SYSTEMS - ADULT ROS:: ROS per family Constitutional: reports: no symptoms reported Eyes: reports: no symptoms reported Ears, Nose, Mouth & Throat: reports: no symptoms reported Cardiovascular: reports: no symptoms reported Respiratory: reports: shortness of breath Gastrointestinal: reports: no symptoms reported Genitourinary: reports: no symptoms reported Musculoskeletal: reports: no symptoms reported Integumentary: reports: no symptoms reported Neurological: reports: no symptoms reported Psychiatric: reports: no symptoms reported Endocrine: reports: no symptoms reported Hematologic/Lymphatic: reports: no symptoms reported Allergic/Immunologic: reports: no symptoms reported All Other Systems: Reviewed and Negative Past History - Adult - PAST MEDICAL HISTORY-ADULT Review of Records: reports: Old Records Reviewed, Nursing Assessment Review, Medications Reviewed, Social history reviewed & non-contributory. Major Childhood Illnesses: reports: denies history Cardiovascular: reports: denies history Respiratory: reports: denies history Gastrointestinal: reports: denies history Obstetrical/Gynecological: reports: denies history Genitourinary: reports: ESRD Musculoskeletal: reports: denies history Neurological: reports: denies history Endocrine/Immune: reports: denies history Other Conditions: reports: denies history - IMMUNIZATION STATUS Childhood Immunizations: See Nurse Assessment Flu Vaccine: See Nurse Assessment - FAMILY HISTORY Family History: reviewed, not pertinent - SOCIAL HISTORY Living Situation: alone Physical Exam-General - PHYSICAL EXAM-ADULT Initial Vital Signs Reviewed: Yes - CONSTITUTIONAL General Appearance: severe distress, combative - EYES Eyes: scleral icterus - HEAD, EARS, NOSE, MOUTH & THROAT HENMT: normocephalic/atraumatic - RESPIRATORY Respiratory: respiratory distress, crackles - CARDIOVASCULAR Cardiovascular: tachycardia - GASTROINTESTINAL (ABDOMEN) Abdominal Exam: normal bowel sounds, soft - SKIN Integumentary: warm/dry - PSYCHIATRIC Psych/Mental Status: disoriented x 3 Progress - PLAN OF CARE/RESULTS Progress/Plan/Lab Results: Vital Signs - 8 hr 11/16/19 18:59 11/16/19 19:20 11/16/19 19:30 Temperature 97.6 F Pulse Rate 143 H 134 H 134 H Respiratory Rate 42 H 20 Blood Pressure 193/103 131/86 164/108 O2 Sat by Pulse Oximetry 65 L 100 11/16/19 19:40 11/16/19 19:50 11/16/19 19:55 Temperature Pulse Rate 133 H 140 H 139 H Respiratory Rate 20 20 20 Blood Pressure 168/113 186/113 180/112 O2 Sat by Pulse Oximetry 100 100 100 11/16/19 20:00 11/16/19 20:05 11/16/19 20:10 Temperature Pulse Rate 136 H 135 H 137 H Respiratory Rate 20 20 20 Blood Pressure 178/108 177/109 181/108 O2 Sat by Pulse Oximetry 100 100 100 11/16/19 20:15 11/16/19 20:20 Temperature Pulse Rate 136 H 135 H Respiratory Rate 20 20 Blood Pressure 178/105 174/105 O2 Sat by Pulse Oximetry 100 100 Laboratory Results - last 24 hr 11/16/19 11/16/19 11/16/19 19:32 19:32 19:32 WBC 7.90 RBC 4.62 L Hgb 12.2 L Hct 39.6 L MCV 85.7 MCH 26.4 L MCHC 30.8 L RDW Std Deviation 17.4 H Plt Count 177 MPV 11.3 H Immature Gran % (Auto) 0.3 Neut % (Auto) 64.6 Lymph % (Auto) 30.4 [place] % (Auto) 2.5 Eos % (Auto) 1.8 Baso % (Auto) 0.4 Immature Gran # (Auto) 0.02 Neut # (Auto) 5.11 Lymph # (Auto) 2.40 [place] # (Auto) 0.20 Eos # (Auto) 0.14 Baso # (Auto) 0.03 Specimen Type Sample Site pH pCO2 pO2 HCO3 Base Excess Oxyhemoglobin ABG O2 Sat (Calculated) ABG O2 Saturation ABG Carboxyhemoglobin ABG Methemoglobin Lopez Test A-a O2 Difference Total Hemoglobin Lactate Blood Gas Modality Vent Mode Spontaneous Rate FiO2 % Tidal Volume PEEP Sodium Potassium Chloride Carbon Dioxide Anion Gap BUN Creatinine Estimated GFR/1.73 m2 BUN/Creatinine Ratio Glucose Calculated Osmolality Calcium Total Bilirubin AST ALT Alkaline Phosphatase Ammonia 56 Total Protein Albumin Globulin Albumin/Globulin Ratio Salicylates Urine Opiates Screen Ur Oxycodone Screen Ur Methadone, Qual Acetaminophen Ur Barbiturates Screen Ur Phencyclidine Scrn Ur Amphetamines Screen U Benzodiazepines Scrn Urine Cocaine Screen U Cannabinoids Screen Acetone Level NEGATIVE 11/16/19 11/16/19 11/16/19 19:32 19:40 19:40 WBC RBC Hgb Hct MCV MCH MCHC RDW Std Deviation Plt Count MPV Immature Gran % (Auto) Neut % (Auto) Lymph % (Auto) [place] % (Auto) Eos % (Auto) Baso % (Auto) Immature Gran # (Auto) Neut # (Auto) Lymph # (Auto) [place] # (Auto) Eos # (Auto) Baso # (Auto) Specimen Type ARTERIAL Sample Site R RADIAL pH 7.11 L* pCO2 73 H* pO2 242 H HCO3 19.1 L Base Excess -7.4 L Oxyhemoglobin 95.6 ABG O2 Sat (Calculated) 17.4 ABG O2 Saturation 100.3 H ABG Carboxyhemoglobin 3.80 H ABG Methemoglobin 0.9 Lopez Test YES A-a O2 Difference 380.0 Total Hemoglobin 12.5 Lactate 1.30 Blood Gas Modality VENTILATOR Vent Mode A/C Spontaneous Rate 12 FiO2 % 100.0 Tidal Volume 500 PEEP 5.0 Sodium 145 Potassium 5.5 H Chloride 108 H Carbon Dioxide 22 L Anion Gap 15 BUN 50 H Creatinine 6.6 H Estimated GFR/1.73 m2 9 BUN/Creatinine Ratio 8 Glucose 184 H Calculated Osmolality 307 Calcium 8.9 Total Bilirubin 0.29 AST 567 H ALT 412 H Alkaline Phosphatase 118 Ammonia Total Protein 6.2 L Albumin 3.7 Globulin 2.5 Albumin/Globulin Ratio 1.5 Salicylates < 3.00 L Urine Opiates Screen NONE DETECTED Ur Oxycodone Screen NONE DETECTED Ur Methadone, Qual NONE DETECTED Acetaminophen < 1.2 L Ur Barbiturates Screen NONE DETECTED Ur Phencyclidine Scrn NONE DETECTED Ur Amphetamines Screen NONE DETECTED U Benzodiazepines Scrn NONE DETECTED Urine Cocaine Screen NONE DETECTED U Cannabinoids Screen NONE DETECTED Acetone Level Orders Category Date Time Status Additional Toxicology Screen PRN Care 11/16/19 19:31 Active [place] [facility] Insertion ORDERED Care 11/16/19 21:21 Active Neurological Check Q12-HR ASSESS Care 11/16/19 19:19 Active Nursing- Obtain EKG ONCE Care 11/16/19 20:27 Active Nursing- Obtain EKG once Care 11/16/19 20:27 Active CHEST-PORTABLE [RAD] Stat Exams 11/16/19 19:[address] HEAD W/O CONTRAST [CT] Stat Exams 11/16/19 19:19 Ordered ABG [RESP] Routine Lab 11/16/19 19:40 Completed ACETAMINOPHEN [TDM] Stat Lab 11/16/19 19:32 Completed ACETONE SERUM [CHEM] Stat Lab 11/16/19 19:32 Completed AMMONIA [CHEM] Stat Lab 11/16/19 19:32 Completed BLOOD CULTURE [BLDCUL] Stat Lab 11/16/19 19:32 Ordered CBC WITH ELECTRONIC DIFF [HEME] Stat Lab 11/16/19 19:32 Completed COMPREHENSIVE METABOLIC PANEL [CHEM] Stat Lab 11/16/19 19:32 Completed SALICYLATES [TDM] Stat Lab 11/16/19 19:32 Completed URINE DRUG SCREEN Stat Lab 11/16/19 19:40 Completed Calcium Gluconate 1 gm Med 11/16/19 20:28 Discontinued 0.9% Sodium Chloride Inj [Ns] 50 ml IV NOW Dextrose 50% Syringe [D50w Syringe] Med 11/16/19 20:28 Discontinued 50 ml IV NOW ONE Etomidate [Amidate] Med 11/16/19 20:13 Discontinued 20 mg IV NOW ONE Etomidate [Amidate] Med 11/16/19 19:10 Discontinued 40 mg .ROUTE .STK-MED ONE Propofol [Diprivan 1%] Med 11/16/19 19:19 Discontinued 10 mg IV STAT STA Propofol [Diprivan 1%] Med 11/16/19 19:32 Discontinued 1,000 mg in 100 ml .ROUTE As directed Propofol [Diprivan 1%] Med 11/16/19 19:30 Active 1,000 mg in 100 ml IV As Directed mls/hr Rocuronium [place] [Zemuron] Med 11/16/19 20:15 Discontinued 100 mg IV NOW ONE EKG [EKG] Stat Ther 11/16/19 20:27 Ordered Transfer/Admit Order [TRANSFER] Routine Transfer 11/16/19 21:01 Ordered 100mg Rock 19:13 see nurses nurses medical assistants phlebotomists for other details. Result Diagrams: 11/16/19 19:32 11/16/19 19:32 - REASSESSMENT Reassessment #1 Time Reassessed: 20:50 (Pt intubated and placed on vent; Dr. Bojorquez made aware) - XRAY 1 XRAY Study: Chest Impression: See EMR Report XRAY Interpretation: inflitrates concerning for pneumonia, possible aspiration - CONSULTS/PCP/HOSPITALIST Notification #1 *Consult/PCP/Hospitalist*: Dr. Bojorquez Time Discussed: 19:45 Consult Disposition: Admit Procedures - INTUBATION Time of Intubation: 19:15 Mallampati Class: 2 Intubation Method: orotracheal Equipment: ETT, Glidescope Tube Size (cm): 7.5 Pretreated with 100% Oxygen?: Yes Breath Sounds after Intubation: equal ETT Primary Tube Confirmation: Capnometry CO2 Change, Direct Visualization, Tube placement verified on XRAY Intubation Complications: no complications Vent Settings: See Respiratory Therapy Notes Departure - Departure Date of Disposition Decision: 11/16/19 Time of Disposition Decision: 20:49 DIAGNOSIS: Respiratory distress Disposition: ADMITTED INPATIENT 09 Certified Medical Emergency: Emergent Condition: Serious Referrals and Follow-Ups: Holden Carrillo MD [Primary Care Provider] - - Critical Care Note This patient required my direct & personal management of CC.: Yes Total Time (mins): 45 Critical Care Statement: This patient required my direct personal management to treat or rule out processes, the absence of which, could potentiallly result in sudden, clinically significant life or limb threatening deterioration. Attestation - Physician/ JOHANA Attestation Patient care was provided by Advanced Practice Provider:: No The physician spent face to face time with patient:: Yes Advanced Practice Provider documentation review:: Supervising physician onsite and consulted in the evaluation and care of this patient. The physician did have a face to face encounter with the patient. This chart was documented by the indicated scribe, (Lane Colorado, Scribnorberto) and accurately reflects the services I performed and decisions made by me, Panda Wong MD, as attested by the provider's signature.
[2019-11-16] MEDS ORDERED: ZOFRAN IV PRN (23:31)
[2019-11-16] MEDS ORDERED: VANCOMYCIN IV PER PHARMACY MISC SCH (23:31)
--- NOTE | 2019-11-16 23:50 | EKG Report ---
Test Performed on : 11/16/2019 8:55:49 PM Test Reason : elevated potassium Blood Pressure : / mmHG Vent. Rate : 133 BPM Atrial Rate : 133 BPM P-R Int : 136 ms QRS Dur : 094 ms QT Int : 306 ms P-R-T Axes : 085 070 -85 degrees QTc Int : 455 ms Sinus tachycardia. Possible Left atrial enlargement ST & T wave abnormality, consider inferior ischemia Abnormal ECG No previous ECGs available Unconfirmed Result
[2019-11-16] MEDS: ZOSYN 3.375 GM in NS 50 ML IV SCH (23:58)
--- NOTE | 2019-11-17 00:23 | HISTORY AND PHYSICAL ---
PRIMARY CARE PHYSICIAN: None. CHIEF COMPLAINT: Unresponsive. HISTORY OF PRESENT ILLNESS: A 64-year-old male with a history of hypertension, chronic kidney disease, BPH, who apparently was having difficulty breathing earlier today and then went unresponsive. EMS arrived. They tried to intubate him, however, it was unsuccessful. The patient was brought to the emergency department where he underwent rapid intubation and he is currently on a ventilator. Most of the history is obtained from family members and previous ER records. As per family, he was complaining of difficulty breathing throughout the days and then all of a sudden he collapsed. PAST MEDICAL HISTORY: Includes hypertension, chronic kidney disease, BPH. PAST SURGICAL HISTORY: Unknown. ALLERGIES: No known drug allergies. CURRENT MEDICATIONS: Include amlodipine 5 mg p.o. daily, metoprolol 25 mg p.o. daily, sodium bicarbonate 1000 mg p.o. b.i.d., tamsulosin 0.4 mg p.o. daily. SOCIAL HISTORY: Unknown. FAMILY HISTORY: Unknown. REVIEW OF SYSTEM: Unable to obtain. PHYSICAL EXAMINATION: GENERAL: The patient was in respiratory distress and currently is intubated and on a ventilator. VITAL SIGNS: Temperature 97.6 degrees, pulse 143, blood pressure 193/103. HEENT: Atraumatic, normocephalic. NECK: No masses. CHEST: Rhonchi. CARDIOVASCULAR: Regular rate and rhythm. ABDOMEN: Soft, positive bowel sounds. EXTREMITIES: No edema. NEUROLOGIC: Patient is sedated. GENITOURINARY: No bladder distention. SKIN: Warm. LABORATORIES AND STUDIES: WBC 7.90, hemoglobin 12.2, hematocrit 39.6, platelets 177,000. Sodium 145, potassium 5.5, chloride 108, CO2 is 22, BUN is 50, creatinine 6.6, glucose 184. Blood gas shows a pH of 7.11, pCO2 of 73, bicarbonate 19.1. Toxicology screen is negative. Chest x-ray shows dense infiltrate throughout the left lung concerning for pneumonia. ASSESSMENT: A 64-year-old male with a history of hypertension, chronic kidney disease and benign prostatic hypertrophy, who was having difficulty throughout the day breathing. He somehow went unresponsive. He was brought to the emergency department. He was intubated and he is currently on ventilator and will require ICU admission for further management. 1. Acute respiratory failure. 2. Probable pneumonia. 3. Acute on chronic kidney disease. 4. Hypertension. PLAN: 1. We will admit patient to ICU. 2. Continue with ventilator support. 3. We will consult metal bed assembler. 4. We will check blood cultures. Start patient on IV antibiotics. 5. We will consult Nephrology for possible dialysis. 6. Monitor blood pressure. Resume antihypertensive agent. 7. We will put patient on DVT prophylaxis with SCDs and heparin. 8. We will continue to follow, reassess and make further recommendation based on patient's clinical course. cc: MD Forest Stinson MD
[2019-11-17] MEDS ORDERED: VANCOMYCIN 1 GM/NS 1 GM/250 ML IVPB IV ONE (01:00)
[2019-11-17] MEDS: DIPRIVAN 1% 1,000 MG/100 ML BOTTLE IV SCH ×5 (01:13→21:27)
[2019-11-17 04:52] LABS: ALLEN TEST YES; BE -4.4 mmoll (-3.0-3.0); BLOOD TYPE ARTERIAL; HCO3-(ACT) 21.5 mmoll (20.0-26.0); METHB 1.3 % (0.0-1.5); O2(CT) 17.9 mL/dL (15.0-23.0); O2HB 96.8 % (95.0-99.0); PCO2(98.6) 39 mmHg (35-45); PO2(98.6) 203 mmHg (60-100); SAMPLE BLOOD; SAO2 99.8 % (95.0-100.0); SRATE 20 BPM; THB 12.8 g/dL (11.5-17.4); TVOL 500 mL; pH(98.6) 7.34 (7.35-7.45)
[2019-11-17 04:53] LABS: MODALITY VENTILATOR
[2019-11-17 05:24] LABS: URINE SOURCE CATH
[2019-11-17 05:34] LABS: BILIRUBIN URINE NEGATIVE (NEGATIVE); BLOOD URINE MODERATE (NEGATIVE); COLOR YELLOW; GLUCOSE URINE NEGATIVE (NEGATIVE); KETONE URINE NEGATIVE (NEGATIVE); LEUKOCYTES URINE NEGATIVE (NEGATIVE); NITRITE URINE NEGATIVE (NEGATIVE); PROTEIN URINE 200 mg/dL (NEGATIVE); SP GRAVITY URINE 1.016; TURBIDITY URINE HAZY (CLEAR); UROBILINOGEN URINE NORMAL (NORMAL)
[2019-11-17 05:35] LABS: UR EPITHELIAL CELLS <10 /HPF (<10); URINE BACTERIA NEGATIVE /HPF; URINE RBC <10 /HPF (<10); URINE WBC <10 /HPF (<10)
[2019-11-17 05:44] LABS: BASO# 0.03 X1000 (0.0-0.2); BASO% 0.4 % (0.0-0.8); EOS# 0.01 X1000 (0.0-0.7); EOS% 0.1 % (0.0-10.0); HEMATOCRIT 34.3 % (42.0-52.0); HEMOGLOBIN 10.7 g/dL (14.0-18.0); LYMPH# 0.85 X1000 (1.2-3.4); LYMPH% 10.4 % (20.5-51.1); MCH 26.6 PG (27-31); MCHC 31.2 g/dL (33-37); MCV 85.1 FL (81-99); MONO# 0.49 X1000 (0.11-0.59); MPV 11.9 FL (7.4-10.4); NEUT# 6.83 X1000 (1.4-6.5); NEUT% 83.1 % (42.2-75.2); PLT 143 X1000 (130-400); RBC 4.03 XMIL (4.7-6.1); RDW 17.3 % (11.5-14.5); WBC 8.21 X1000 (4.8-10.8)
[2019-11-17] MEDS: ZOSYN 3.375 GM in NS 50 ML IV SCH ×2 (05:45→12:07)
[2019-11-17 06:06] LABS: URINE CASTS NONE SEEN; URINE CRYSTALS NONE SEEN; URINE SMALL ROUND CELLS NONE SEEN; URINE YEAST PRESENT
[2019-11-17 06:36] LABS: CALCIUM 8.5 mg/dL (8.8-10.2); CREATININE 6.4 mg/dL (0.7-1.2); POTASSIUM 6.2 mmol/L (3.5-5.1)
[2019-11-17] MEDS ORDERED: D50W SYRINGE IV ONE (07:44)
[2019-11-17] MEDS ORDERED: HUMULIN R IV ONE (07:45)
--- NOTE | 2019-11-17 08:04 | Diag Imaging Result Doc PS360 ---
EXAM: CT HEAD W/O CONTRAST INDICATION: AMS TECHNIQUE: This exam was performed using automated exposure control, adjustment of mA or kV according to patient size, and/or use of iterative reconstruction technique. COMPARISON: None. FINDINGS: This study suffers from moderate motion artifact, which somewhat limits sensitivity. However, there is no definite acute infarct given the limited sensitivity of CT versus MRI as imaged. There is no discrete intracranial mass, mass effect, or intracranial hemorrhage. The surrounding soft tissues and bony structures are essentially unremarkable. IMPRESSION: No evidence of acute intracranial pathology as imaged. Electronically signed by Roby Munoz 11/17/2019 8:01 AM
[2019-11-17] MEDS ORDERED: NS NEB INH SCH (08:45)
[2019-11-17] MEDS: XOPENEX NEB INH SCH ×3 (09:08→21:51)
[2019-11-17] MEDS: ATROVENT NEB INH SCH ×3 (09:08→21:50)
[2019-11-17] MEDS: SODIUM CHLORIDE 0.9% INJ SCH (09:12)
[2019-11-17] MEDS: PROTONIX IV SCH (09:12)
[2019-11-17] MEDS ORDERED: TIGHT: 0.2 ML/HR FOR DIALYSIS MISC PRN (11:06)
[2019-11-17] MEDS ORDERED: NS 2,000 ML MISC PRN (11:06)
[2019-11-17] MEDS ORDERED: HEPARIN IV PRN (11:06)
[2019-11-17] MEDS: ZOSYN 2.25 GM in NS 50 ML IV SCH (17:00)
--- NOTE | 2019-11-17 17:28 | CONSULTATION ---
DATE OF CONSULTATION: 11/17/2019 REQUESTING PROVIDER: Dr. Zeferino Bojorquez. REASON FOR CONSULTATION: Ventilator management. HISTORY OF PRESENT ILLNESS: This is a 64-year-old, -[place] male, with a medical history of ongoing tobacco abuse, hypertension, end-stage renal disease, benign prostatic hyperplasia, hyperlipidemia, anemia of chronic disease. The patient presented to the ER last night via EMS with acute respiratory distress, and eventually he developed altered mental status. He underwent rapid intubation in the ER. CT head without contrast, essentially unremarkable. Chest x-ray revealed diffuse infiltrates throughout the left lung with some infiltrate or fibrosis in the right lung base as well as to a lesser extent, concerning for pneumonia or aspiration. Blood gas showed uncompensated respiratory acidosis with elevated ProBNP. Liver function tests, potassium, and acute on chronic kidney disease. The patient currently is still intubated and sedated with Diprivan drip. There is no acute distress noted. No family is at the bedside at this time. All information is collected from the E-chart. PAST MEDICAL/SURGICAL HISTORY: 1. Ongoing tobacco abuse. 2. End-stage renal disease. 3. Hypertension. 4. Benign prostatic hyperplasia. 5. Hyperlipidemia. 6. Anemia of chronic disease. 7. Status post left arm arteriovenous graft placement on 09/26/2019, by Dr. Kent. 8. Status post right thoracotomy by Dr. Kent. 9. Status post some cancer removal. No medical documentation noted. SOCIAL HISTORY: The patient is single and lives with his sister. He is a daily smoker with 1 pack per day. No history of alcohol or illicit drug use noted. FAMILY HISTORY: Positive for stroke. REVIEW OF SYSTEMS: Unable to be obtained. PHYSICAL EXAMINATION: Vital Signs: Temperature 98.2, blood pressure 115/68, pulse 103, respiratory rate 20, oxygen saturation 100% on AC mechanical ventilator with spontaneous rate 20, FiO2 of 60%, tidal volume 500, and PEEP 5. General: Intubated and sedated. No acute distress noted. HEENT: Atraumatic, normocephalic. Trachea midline. ET tube in place. Mucosa pink and slightly dry. Respiratory: Mechanical ventilated. Symmetrical excursion. Auscultation revealed bilateral rhonchi. Cardiovascular: Regular rate and rhythm. Gastrointestinal: Soft, nondistended. Normoactive bowel sounds in all 4 quadrants. Extremities: Significant clubbing; No pedal edema. No cyanosis. Dorsalis pedis 1+ bilaterally. Neurologic: Sedated. Unresponsive to any verbal or physical stimuli at this time. LABORATORY DATA: White blood cell 8.21, hemoglobin 10.7, hematocrit 34.3, platelet 143,000. Sodium 145, potassium 6.2, chloride 109, carbon dioxide 20, BUN 58, creatinine 6.4, glucose 117. ABG, pH of 7.34, pCO2 of 39, PO2 of 203, HC03 of 21.5, base excess -4.4, and oxyhemoglobin 96.8. ASSESSMENT: This is a 64-year-old, -[place] male, with a medical history of ongoing tobacco abuse, end-stage renal disease, hypertension, benign prostatic hyperplasia, hyperlipidemia, anemia of chronic disease, and recently admitted between 08/27/2019 to 08/30/2019, with acute asthmatic bronchitis and possible pneumonia. He was admitted last night with acute hypoxic respiratory failure, possible pneumonia, acute on chronic kidney disease. 1. Acute hypoxic respiratory failure. 2. Dense infiltrates throughout the left lung concerning for pneumonia or aspiration. 3. End-stage renal disease with hyperkalemia. 4. Ongoing tobacco abuse. PLAN: 1. Continue AC mechanical ventilator. 2. Continue antibiotic. Add bronchodilators. 3. Follow up with ABG, CBC, BMP, blood culture, and chest x-ray. 4. Dr. Scott the asbestos microscopist is on board. 5. Smoking cessation education when appropriate. 6. Further recommendations pending hospital course. Thank you for the courtesy of this consult. Dictated by GERMANIA Peacock for Marck Fox MD cc: GERMANIA Peacock MD Bharat K. Vakharia, MD MTDD
--- NOTE | 2019-11-17 18:06 | PROGRESS NOTE ---
DATE: 11/17/2019 SUBJECTIVE: A 64-year-old gentleman admitted with shortness of breath and chest congestion. The patient became unresponsive in the field. They tried to intubate the patient but it was difficult. The patient was brought to the emergency room and intubated. The patient is doing fair. The patient is on mechanical ventilator. The patient does have endstage renal disease, started on hemodialysis. The patient is not able to give history. Admission history and physical noted. The patient does have history of COPD, noncompliant to smoking cessation. The patient is also noncompliant to followup. OBJECTIVE: His vital signs: Blood pressure 101/70, pulse 101, respirations 20. Temperature noted. Neck is supple. No JVD.Lungs: Decreased air entry, both the bases. CVS: S1 and S2 heard. Abdomen soft, globular. Bowel sounds present. GAME MANAGER: The patient is sedated, on mechanical ventilation. LABORATORY DATA: WBC count 8.21, hemoglobin 10.7, hematocrit 34.3, platelet count 143,000. Blood gas: PH 7.34, pCO2 is 39. Admission pCO2 was 73. His potassium was 6.2, BUN 58, creatinine 6.4. ASSESSMENT AND PLAN: 1. Acute hypoxemic and hypercarbic respiratory failure. 2. Metabolic and respiratory acidosis. 3. Hyperkalemia. 4. The patient is getting dialysis. 5. Pneumonia. 6. Hypertension. 7. Anemia, most likely of chronic disease. Master Sonar Technician and beef cattle grazier are following the patient with us. We will continue current treatment. Overall prognosis fair to guarded. cc: Johnny Dobbs MD
--- NOTE | 2019-11-17 21:23 | NEPHROLOGY CONSULTATION ---
INCOMPLETE REPORT -- DICTATION ENDS HERE. Dictated by GERMANIA Escobar for Jose Carlos Scott MD cc: MD Johnny Cramer MD MTDD
--- NOTE | 2019-11-17 21:38 | NEPHROLOGY CONSULTATION ---
DATE: 11/17/2019 DATE: 11/17/2019 REASON FOR ADMISSION: Unresponsive, respiratory failure. REASON FOR CONSULTATION: Assist with management, [id number] kidney disease. REQUESTING PHYSICIAN: Dr. Bojorquez. HISTORY OF PRESENT ILLNESS: This is a 64-year-old gentleman known to our service for chronic kidney disease, with a baseline creatinine of around 2.5. He had an AV graft placed in August of this year. He was last seen in our office the first of the month at which time, his creatinine was slightly elevated at 4.6. We were following up with him every few weeks. The patient was close to initiation of dialysis. The patient came into the hospital secondary to respiratory failure. EMS was called to his house secondary to difficulty breathing. He had an unsuccessful intubation. He came to the emergency room where he underwent rapid intubation, RSI. He remains on a ventilator this morning. His creatinine today is 6.4. PAST MEDICAL HISTORY: Hypertension, CKD stage 5 with plans to start dialysis in the very near future. BPH. Acidosis. SURGICAL HISTORY: He had an AV graft placed to the left upper extremity in August of this year. ALLERGIES: No known drug allergies. HOME MEDICATIONS: Amlodipine, metoprolol, sodium bicarbonate, tamsulosin. FAMILY HISTORY: Noncontributory. SOCIAL HISTORY: Continues to smoke. No ETOH or illicit drug use. REVIEW OF SYSTEMS: Patient currently sedated, mechanically ventilated. PHYSICAL EXAMINATION: Vital Signs: Temperature 98.2 degrees, pulse 106, respiratory rate 27, blood pressure 104/66. Intake 580 mL. Output not measured. General: This is a critically ill- appearing, middle-aged gentleman currently mechanically ventilated. HEENT: Normocephalic, atraumatic. YOSEPH. Neck: Supple with trace JVD. Cardiovascular: Regular rate and rhythm, tachycardic. Pulmonary: He has rhonchi bilaterally. Remains on mechanical ventilation. Abdomen: Hypoactive bowel sounds. Genitourinary: Alcantara catheter. Extremities: No clubbing, cyanosis, or edema. Integumentary: Skin is warm and dry. Neurologic: Sedated. LABORATORY DATA: WBC of 8.4, hemoglobin 10.7, sodium 145, potassium 6.2, CO2 20, BUN 58, creatinine 6.4. He had 2+ proteinuria. IMAGING: Chest x-ray with dense infiltrate throughout the left lung concerning for aspiration or pneumonia. He had a head CT with no evidence of acute pathology. ASSESSMENT AND PLAN: 1. Acute on chronic kidney disease stage 5. The patient has a significant hyperkalemia this morning and worsening renal function. The patient does have dialysis access. Therefore we will go ahead and initiate dialysis on him today. I will run him on a 4-hour treatment 2K bath, low flow at 250 with a fluid removal volume of perhaps 2 L if he can tolerate it. The patient is currently on no pressor support, and blood pressure currently is acceptable. Plan to dialyze again in the morning, and then we will re-evaluate on Wednesday. We will continue to follow him daily while in the hospital. 2. Electrolytes, acid-base balance. Again, he had significant hyperkalemia this morning. We initiated dialysis after treating him medically for his potassium. 3. Medication review. No changes needed to current treatment plan. Dictated by GERMANIA Escobar for Jose Carlos Scott MD cc: MD Johnny Cramer MD MTDD
[2019-11-18] MEDS: ZOSYN 2.25 GM in NS 50 ML IV SCH ×5 (00:46→23:24)
[2019-11-18] MEDS: DIPRIVAN 1% 1,000 MG/100 ML BOTTLE IV SCH ×3 (02:23→10:51)
[2019-11-18 04:35] LABS: ALLEN TEST YES; BE 4.1 mmoll (-3.0-3.0); BLOOD TYPE ARTERIAL; HCO3-(ACT) 28.1 mmoll (20.0-26.0); METHB 1.1 % (0.0-1.5); O2HB 96.6 % (95.0-99.0); PCO2(98.6) 34 mmHg (35-45); PO2(98.6) 112 mmHg (60-100); SAMPLE BLOOD; SRATE 20 BPM; THB 10.9 g/dL (11.5-17.4); TVOL 500 mL; pH(98.6) 7.51 (7.35-7.45)
[2019-11-18 04:37] LABS: MODALITY VENTILATOR
[2019-11-18 04:46] LABS: BASO# 0.02 X1000 (0.0-0.2); BASO% 0.5 % (0.0-0.8); EOS# 0.12 X1000 (0.0-0.7); HEMATOCRIT 32.7 % (42.0-52.0); HEMOGLOBIN 10.3 g/dL (14.0-18.0); LYMPH# 1.04 X1000 (1.2-3.4); LYMPH% 26.3 % (20.5-51.1); MCH 26.3 PG (27-31); MCHC 31.5 g/dL (33-37); MCV 83.4 FL (81-99); MONO# 0.29 X1000 (0.11-0.59); MONO% 7.3 % (1.7-9.3); MPV 11.9 FL (7.4-10.4); NEUT# 2.48 X1000 (1.4-6.5); NEUT% 62.9 % (42.2-75.2); PLT 123 X1000 (130-400); RBC 3.92 XMIL (4.7-6.1); WBC 3.95 X1000 (4.8-10.8)
[2019-11-18 05:51] LABS: CALCIUM 8.2 mg/dL (8.8-10.2); CREATININE 4.3 mg/dL (0.7-1.2); POTASSIUM 4.2 mmol/L (3.5-5.1)
[2019-11-18] MEDS ORDERED: NS 0 ML ONE (05:57)
[2019-11-18] MEDS: LOVENOX SUBQ SCH (05:57)
[2019-11-18] MEDS: PROTONIX IV SCH ×2 (05:57→08:44)
[2019-11-18] MEDS: SODIUM CHLORIDE 0.9% INJ SCH (05:59)
--- NOTE | 2019-11-18 07:14 | Diag Imaging Result Doc PS360 ---
EXAM: CHEST-1 VIEW HISTORY: SOB TECHNIQUE: Single view COMPARISON: 11/16/2019 FINDINGS: Endotracheal tube in good position. The lungs are well expanded. No cardiomegaly. There are surgical clips and sutures in the upper right lung. Decreased pulmonary edema. IMPRESSION: Mild interval improvement Electronically signed by Holland Joyner 11/18/2019 7:12 AM
[2019-11-18] MEDS ORDERED: HEPARIN IV PRN (07:28)
[2019-11-18] MEDS ORDERED: NS 2,000 ML MISC PRN (07:28)
[2019-11-18] MEDS ORDERED: TIGHT: 0.2 ML/HR FOR DIALYSIS MISC PRN (07:28)
[2019-11-18] MEDS: ATROVENT NEB INH SCH ×3 (09:35→21:56)
[2019-11-18] MEDS: XOPENEX NEB INH SCH ×3 (09:35→21:56)
--- NOTE | 2019-11-18 13:42 | PROGRESS NOTE ---
DATE: 11/18/2019 SUBJECTIVELY: Mr. Veliz is still on ventilator, not communicating. No fever or chills. The patient is getting hemodialysis. No seizure-type episode. OBJECTIVE: Vital Signs: Blood pressure 105/69, pulse is 88, respirations 20, temperature 97.3 degrees. HEENT: Small pupils, muddy sclerae. Uncooperative for extraocular muscle movement exam. Lungs: Decreased air entry at both the bases. Cardiovascular: S1 and S2 heard. A 2/6 systolic murmur at the apex. Abdomen: Soft, globular. Bowel sounds present. Extremities: No cyanosis, clubbing. No acute DVT. Central nervous system: Patient is sedated on the ventilator. Cannot do a proper neurologic exam. IMAGING: Patient's chest x-ray revealed mild interval improvement. LABORATORY DATA: Hemoglobin 10.3, hematocrit 32.7, WBC count 3.95, platelet count 123,000. Blood gas: pH 7.51, pCO2 34, pO2 was 112. His potassium today was 4.2, sodium 142, BUN 30, creatinine 4.3. PROBLEM LIST: 1. Respiratory failure, on mechanical ventilation. 2. End-stage renal disease, on hemodialysis. 3. Hyperkalemia, improved. 4. Bronchopneumonia. Patient is on broad-spectrum antibiotics. Overall prognosis is still fair to guarded. 5. History of benign prostatic hypertrophy. PLAN: We will continue current treatment. Close observation. Appreciate Dr. Fox's and Dr. Scott's help managing patient. There was no family member available in the waiting room. cc: Johnny Dobbs MD
[2019-11-18 13:49] LABS: HEPATITIS PROFILE ACUTE SEE COMMENTS
--- NOTE | 2019-11-18 14:08 | Diag Imaging Result Doc PS360 ---
EXAM: CHEST-PORTABLE HISTORY: NG Tube verification TECHNIQUE: Single view COMPARISON: 5:35 AM FINDINGS: Interval placement of a nasogastric tube. This overlies the esophagus and stomach. No other change to the chest. IMPRESSION: Approximately 6 cm of the nasogastric tube enters the stomach. Electronically signed by Holland Joyner 11/18/2019 2:06 PM
[2019-11-18 15:04] LABS: ALLEN TEST YES; BE 4.9 mmoll (-3.0-3.0); BLOOD TYPE ARTERIAL; HCO3-(ACT) 28.7 mmoll (20.0-26.0); METHB 0.8 % (0.0-1.5); O2(CT) 17.7 mL/dL (15.0-23.0); O2HB 96.3 % (95.0-99.0); PCO2(98.6) 41 mmHg (35-45); PO2(98.6) 89 mmHg (60-100); SAMPLE BLOOD; SAO2 98.9 % (95.0-100.0); pH(98.6) 7.46 (7.35-7.45)
[2019-11-18 15:05] LABS: MODALITY VENTILATOR
[2019-11-18] MEDS: LOPRESSOR IV PRN (18:13)
[2019-11-18] MEDS ORDERED: TYLENOL LIQUID PO PRN (18:21)
--- NOTE | 2019-11-18 18:54 | NEPHROLOGY PROGRESS NOTE ---
DATE: 11/18/2019 SUBJECTIVE: Patient remains sedated and mechanically ventilated. OBJECTIVE: Vital Signs: Temperature 97.7 degrees, pulse 89, respiratory rate 20, blood pressure 104/68. Intake 654 mL. Output 670 mL. 230 mL was UF removal on dialysis yesterday. General: This is a critically ill-appearing gentleman, currently sedated, mechanically ventilated. HEENT: Normocephalic, atraumatic. Orally intubated. Poor dentition. Neck: Supple. Trace JVD in reclined position. Cardiovascular: Regular rate and rhythm. Pulmonary: Rhonchi and wheezes bilaterally. Remains on mechanical ventilation. Abdomen: Hypoactive. : Alcantara catheter. Extremities: No edema Integumentary: Skin is warm and dry. Neurologic: Again, sedated. LAB DATA: WBCs 3.9, hemoglobin 10.3. Sodium 142, potassium 4.2. CO2 of 24, creatinine 4.3, he had a chest x-ray that showed mild pulmonary edema, improved. ASSESSMENT AND PLAN: 1. Acute on chronic CKD stage 5. We dialyzed the patient yesterday primarily for his abnormal electrolytes. He remains with mild pulmonary edema noted on his chest x-ray. Will go ahead and dialyze today with a goal of 2 L ultrafiltration removal as his blood pressure tolerates. Potassium has been acceptable at 4.2. We will run him on a 2 K bath today. 2. Electrolytes, acid-base balance, anemia. See above for plan. 3. Medication review. No changes. 4. Fluid volume. See above for plan. 5. Hypoxemic, hypercapnic respiratory failure. Again, we will try to dialyze if we can achieve some euvolemia to assist with his respiratory status. Dictated by GERMANIA Escobar for Jose Carlos Scott MD cc: MD Johnny Cramer MD
[2019-11-19 04:27] LABS: ALLEN TEST YES; BE 5.1 mmoll (-3.0-3.0); BLOOD TYPE ARTERIAL; HCO3-(ACT) 28.9 mmoll (20.0-26.0); METHB 0.9 % (0.0-1.5); MODALITY COOL AEROSOL; O2(CT) 16.4 mL/dL (15.0-23.0); O2HB 95.3 % (95.0-99.0); PCO2(98.6) 47 mmHg (35-45); PO2(98.6) 80 mmHg (60-100); SAMPLE BLOOD; SAO2 97.9 % (95.0-100.0); THB 12.2 g/dL (11.5-17.4); pH(98.6) 7.42 (7.35-7.45)
[2019-11-19 05:12] LABS: BASO# 0.02 X1000 (0.0-0.2); BASO% 0.4 % (0.0-0.8); EOS# 0.21 X1000 (0.0-0.7); EOS% 3.8 % (0.0-10.0); HEMATOCRIT 35.8 % (42.0-52.0); HEMOGLOBIN 11.2 g/dL (14.0-18.0); LYMPH# 1.03 X1000 (1.2-3.4); LYMPH% 18.8 % (20.5-51.1); MCH 26.2 PG (27-31); MCHC 31.3 g/dL (33-37); MCV 83.8 FL (81-99); MONO# 0.48 X1000 (0.11-0.59); MONO% 8.8 % (1.7-9.3); MPV 12.1 FL (7.4-10.4); NEUT# 3.74 X1000 (1.4-6.5); NEUT% 68.2 % (42.2-75.2); PLT 124 X1000 (130-400); RBC 4.27 XMIL (4.7-6.1); RDW 16.8 % (11.5-14.5); WBC 5.48 X1000 (4.8-10.8)
[2019-11-19 05:34] LABS: CALCIUM 8.6 mg/dL (8.8-10.2); CREATININE 4.1 mg/dL (0.7-1.2)
[2019-11-19] MEDS: LOVENOX SUBQ SCH (05:52)
[2019-11-19] MEDS: ZOSYN 2.25 GM in NS 50 ML IV SCH ×4 (05:52→23:27)
[2019-11-19] MEDS: PROTONIX IV SCH (05:59)
--- NOTE | 2019-11-19 07:50 | Diag Imaging Result Doc PS360 ---
EXAM: CHEST-1 VIEW INDICATION: SOB TECHNIQUE: One view COMPARISON: 11/18/2019 FINDINGS: There has been interval extubation. The NG tube is in stable position. Postsurgical changes are noted on the right. No new consolidation is identified. Cardiac silhouette is stable. IMPRESSION: Interval extubation. Stable chest, otherwise. Electronically signed by Roby Munoz 11/19/2019 7:48 AM
[2019-11-19] MEDS: XOPENEX NEB INH SCH ×3 (10:16→22:35)
[2019-11-19] MEDS: ATROVENT NEB INH SCH ×3 (10:16→22:35)
--- NOTE | 2019-11-19 14:10 | PROGRESS NOTE ---
DATE: 11/19/2019 SUBJECTIVE: The patient remains in the ICU. He was able to be extubated successfully yesterday. He is doing well overall. He has no new complaints. OBJECTIVE: T-max 100.6 degrees, T current 98.1, pulse 103, respirations 20, blood pressure 117/57, O2 saturation on 3 L 100%.CV: Tachycardia, regular rhythm. Lungs: Diminished breath sounds right lung base otherwise CTA. Abdomen: Nontender, nondistended. Extremities: No calf tenderness, cords, edema. Neuro: Cranial nerves 2-12 are intact. No focal deficits. LAB: White count 5.48, hemoglobin 11.2, platelets 124,000. ABG on 40% FiO2 reveals pH 7.42, pCO2 47, PO2 80, O2 saturation 97.9. Sodium 144, potassium 4.0, chloride 101, CO2 26, BUN 25, creatinine 4.1, calcium 8.6. Chest x-ray reveals postsurgical changes noted on the right, otherwise negative. ASSESSMENT: 1. History of respiratory failure now off mechanical ventilation. 2. End-stage renal disease on hemodialysis per Dr. Scott. 3. Hyperkalemia resolved with treatment per dialysis. 4. Bronchopneumonia. 5. History of right lung cancer. 6. Benign prostatic hypertrophy. PLAN: Continue hemodialysis per Dr. Scott. He is on prophylactic doses of Lovenox. He is on Atrovent and Xopenex nebulizer treatments q.6 hours. He is on prevention of peptic ulcer disease with IV Protonix. He is on broad-spectrum antibiotics in the form of Zosyn. Repeat chest x-ray and labs in the morning. cc: MD Johnny Luciano MD
--- NOTE | 2019-11-19 15:32 | NEPHROLOGY PROGRESS NOTE ---
DATE: 11/19/2019 SUBJECTIVE: Patient was successfully extubated yesterday afternoon and he is doing well this morning. Awake and alert. OBJECTIVE: Vital Signs: Temperature 99 degrees, pulse 105, respiratory rate 19, blood pressure 136/81. Intake 940 mL and output 2.5 L. 2 L was UF on dialysis. General: Chronically ill- appearing elderly gentleman resting in bed. He is awake and alert. He is interactive HEENT: Normocephalic and atraumatic. YOSEPH. Conjunctivae are pink. His oral mucosa is moist. Dentition fair. Neck: Supple without JVD. Cardiovascular: Regular rate and rhythm. Pulmonary: Clear bilaterally. Abdomen: Soft, with positive bowel sounds. Genitourinary: Not inspected. Alcantara catheter. Extremities: No edema. AV graft site with a dressing in place. No significant warmth today. Integumentary: Skin is warm and dry. Neuro: Awake, alert, and oriented X2 to 4. LAB DATA: WBC of 5.4, hemoglobin 11.2. Sodium 144. Potassium 4.0. CO2 26. Creatinine 4.1. ASSESSMENT AND PLAN: 1. Acute on chronic kidney disease, stage 5. The patient has done well overnight. We will evaluate his labs in the morning along with fluid volumes to determine if patient will require continued dialysis. 2. Electrolytes, acid-base balance, and anemia. His potassium and acid-base have been in target since his dialysis. 3. Warm graft with fever. The patient did receive broad-spectrum antibiotics. Zosyn and vancomycin previously ordered for his bronchopneumonia. His blood cultures are pending, have been negative thus far. Dictated by GERMANIA Escobar for Jose Carlos Scott MD cc: MD Johnny Cramer MD
[2019-11-19] MEDS: LOPRESSOR IV PRN (16:20)
[2019-11-20 04:21] LABS: ALLEN TEST YES; BE 1.7 mmoll (-3.0-3.0); BLOOD TYPE ARTERIAL; HCO3-(ACT) 26.2 mmoll (20.0-26.0); METHB 0.7 % (0.0-1.5); O2(CT) 15.9 mL/dL (15.0-23.0); O2HB 95.4 % (95.0-99.0); PCO2(98.6) 42 mmHg (35-45); PO2(98.6) 75 mmHg (60-100); SAMPLE BLOOD; THB 11.8 g/dL (11.5-17.4); pH(98.6) 7.41 (7.35-7.45)
[2019-11-20 04:22] LABS: MODALITY CANNULA
[2019-11-20 05:18] LABS: BASO# 0.03 X1000 (0.0-0.2); BASO% 0.7 % (0.0-0.8); EOS# 0.25 X1000 (0.0-0.7); EOS% 5.4 % (0.0-10.0); HEMATOCRIT 36.1 % (42.0-52.0); HEMOGLOBIN 11.4 g/dL (14.0-18.0); LYMPH# 1.02 X1000 (1.2-3.4); LYMPH% 22.2 % (20.5-51.1); MCH 26.5 PG (27-31); MCHC 31.6 g/dL (33-37); MCV 83.8 FL (81-99); MONO# 0.42 X1000 (0.11-0.59); MONO% 9.2 % (1.7-9.3); MPV 11.7 FL (7.4-10.4); NEUT# 2.87 X1000 (1.4-6.5); NEUT% 62.5 % (42.2-75.2); PLT 127 X1000 (130-400); RBC 4.31 XMIL (4.7-6.1); RDW 16.7 % (11.5-14.5); WBC 4.59 X1000 (4.8-10.8)
[2019-11-20 05:31] LABS: CALCIUM 8.9 mg/dL (8.8-10.2); POTASSIUM 4.2 mmol/L (3.5-5.1)
[2019-11-20 05:53] LABS: CREATININE 5.3 mg/dL (0.7-1.2)
[2019-11-20] MEDS: PROTONIX IV SCH (06:00)
[2019-11-20] MEDS: ZOSYN 2.25 GM in NS 50 ML IV SCH ×3 (06:00→21:06)
[2019-11-20] MEDS: LOVENOX SUBQ SCH (06:00)
--- NOTE | 2019-11-20 06:44 | Diag Imaging Result Doc PS360 ---
CHEST-1 VIEW - 11/20/2019 INDICATION: SOB COMPARISON: 11/19/2019 FINDINGS: The nasogastric tube has been removed. Stable surgical changes to the right lung. Lung volumes are lower. There is some worsening hazy infiltrate or atelectasis at the right lung base. The left lung remains clear. Heart size remains borderline. IMPRESSION: Lower lung volumes. Mild but nonspecific atelectasis or infiltrate in the right lung base. Electronically signed by Sherif Kumari 11/20/2019 6:41 AM
--- NOTE | 2019-11-20 07:12 | PROGRESS NOTE ---
DATE: 11/20/2019 SUBJECTIVE: Mr. Veliz is doing better. He denied any fever or chills. Chest congestion and cough improving. Patient extubated over the weekend. He denied any nausea, vomiting. Oral intake is fair. OBJECTIVE: Vital Signs: Noted. Neck: Supple. No JVD. Lungs: Bilateral good air entry present. CVS: S1 and S2 heard. Abdomen: Soft, nontender. Bowel sounds present. Extremities: No cyanosis, clubbing. No acute DVT. STUDIO SET UP WORKER: Alert, awake, able to move all 4 limbs. ASSESSMENT AND PLAN: The patient wants to go home. I am going to transfer the patient to step- down unit. Continue rest of the treatment. I am going to resume his beta kathy. If clinical condition permits, will discharge the patient home within a day or two. His problems include: 1. Respiratory failure, status post mechanical ventilation. 2. Chronic kidney disease stage 4 to 5. 3. Pneumonia. 4. Hypertension. 5. Gastritis. If the patient does well, he should be ready to go home within a day or two. cc: Johnny Dobbs MD
[2019-11-20] MEDS ORDERED: TIGHT: 0.2 ML/HR FOR DIALYSIS MISC PRN (08:02)
[2019-11-20] MEDS ORDERED: NS 2,000 ML MISC PRN (08:02)
[2019-11-20] MEDS ORDERED: HEPARIN IV PRN (08:02)
[2019-11-20] MEDS: XOPENEX NEB INH SCH ×3 (09:25→21:11)
[2019-11-20] MEDS: ATROVENT NEB INH SCH ×3 (09:25→21:11)
[2019-11-20] MEDS ORDERED: VANCOMYCIN 1 GM/NS 1 GM/250 ML IVPB IV SCH (13:15)
[2019-11-20] MEDS: TOPROL XL PO SCH (15:34)
[2019-11-20] MEDS ORDERED: VANCOMYCIN 1 GM/NS 1 GM/250 ML IVPB IV ONE (18:00)
[2019-11-20] MEDS: SYMBICORT 160/4.5 MICROGM INHALER INH SCH (21:11)
[2019-11-21 05:24] LABS: ALLEN TEST YES; BE 4.4 mmoll (-3.0-3.0); BLOOD TYPE ARTERIAL; HCO3-(ACT) 28.3 mmoll (20.0-26.0); METHB 0.7 % (0.0-1.5); O2(CT) 17.2 mL/dL (15.0-23.0); O2HB 95.2 % (95.0-99.0); PCO2(98.6) 39 mmHg (35-45); PO2(98.6) 75 mmHg (60-100); SAMPLE BLOOD; SAO2 97.8 % (95.0-100.0); THB 12.8 g/dL (11.5-17.4); pH(98.6) 7.47 (7.35-7.45)
[2019-11-21 05:25] LABS: MODALITY ROOM AIR
[2019-11-21] MEDS: PROTONIX IV SCH ×2 (05:35→06:04)
[2019-11-21] MEDS: ZOSYN 2.25 GM in NS 50 ML IV SCH ×4 (05:35→21:36)
[2019-11-21] MEDS: LOVENOX SUBQ SCH (05:36)
[2019-11-21 05:51] LABS: CALCIUM 9.2 mg/dL (8.8-10.2); CREATININE 4.5 mg/dL (0.7-1.2)
[2019-11-21 06:07] LABS: BASO# 0.02 X1000 (0.0-0.2); BASO% 0.4 % (0.0-0.8); EOS# 0.23 X1000 (0.0-0.7); EOS% 5.2 % (0.0-10.0); HEMATOCRIT 38.9 % (42.0-52.0); HEMOGLOBIN 12.3 g/dL (14.0-18.0); LYMPH# 1.31 X1000 (1.2-3.4); LYMPH% 29.4 % (20.5-51.1); MCHC 31.6 g/dL (33-37); MCV 82.2 FL (81-99); MONO# 0.43 X1000 (0.11-0.59); MONO% 9.7 % (1.7-9.3); NEUT# 2.46 X1000 (1.4-6.5); NEUT% 55.3 % (42.2-75.2); PLT 138 X1000 (130-400); RBC 4.73 XMIL (4.7-6.1); RDW 16.1 % (11.5-14.5); WBC 4.45 X1000 (4.8-10.8)
--- NOTE | 2019-11-21 07:01 | PULMONOLOGY PROGRESS NOTE ---
DATE: 11/20/2019 SUBJECTIVE: The patient is awake, alert, and conversant. He denies cough. He denies sputum production. OBJECTIVE: Vital Signs: The patient has been afebrile for the last 24 hours, blood pressure 140/78, heart rate 106, respiratory rate 20, oxygen saturation 97% on 2 L per nasal cannula. HEENT: Pupils are equal and reactive. Oropharynx appears clear. Neck: Supple. Chest: Decreased breath sounds at the right base. Cardiac: S1, S2. Abdomen: Soft and scaphoid. Extremities: Without edema. IMAGING AND LABORATORY DATA: Chest x-ray reveals postsurgical changes in the right lung, mild atelectasis at right base. Sodium 141, potassium 4.2, chloride 101, bicarbonate 23, BUN 30, creatinine 5.3. IMPRESSION: A 64-year-old with: 1. Acute hypoxemic respiratory failure, status post mechanical ventilation. 2. Pneumonia with radiographic improvement. 3. Chronic kidney disease with dialysis this hospitalization. PLAN: 1. Continue oxygen, and evaluate the need for oxygen at discharge. 2. Continue fluid management per Nephrology. 3. Anticipate discharge soon. cc: MD Johnny Conde MD
[2019-11-21] MEDS: TOPROL XL PO SCH (08:11)
--- NOTE | 2019-11-21 09:16 | PROGRESS NOTE ---
DATE: 11/21/2019 Mr. Veliz is feeling better. He has acute on chronic respiratory failure. He has chronic kidney disease. He is recovering well. The chest x-ray had shown that he has low lung volumes, atelectasis with infiltrate in the right lung. He is also seen by Dr. Staples and overall condition is unchanged. He is getting dialysis and he has hypoxemic respiratory failure. We will continue the current management on him. cc: MD Johnny Noel MD
--- NOTE | 2019-11-21 09:22 | Diag Imaging Result Doc PS360 ---
CHEST-1 VIEW - 11/21/2019 INDICATION: SOB COMPARISON: 11/20/2019 FINDINGS: There has been improvement in the expansion of the right lung. There has also been significant improvement in the airspace opacification of the right lung base. No new infiltrates. The left lung remains clear. Heart size remains normal. IMPRESSION: Significant improvement from prior. Electronically signed by Sherif Kumari 11/21/2019 9:20 AM
[2019-11-21] MEDS: SYMBICORT 160/4.5 MICROGM INHALER INH SCH ×2 (09:41→21:50)
[2019-11-21] MEDS: XOPENEX NEB INH SCH ×3 (09:42→21:50)
[2019-11-21] MEDS: ATROVENT NEB INH SCH ×3 (09:42→21:50)
--- NOTE | 2019-11-21 10:53 | NEPHROLOGY PROGRESS NOTE ---
DATE: 11/20/2019 SUBJECTIVE: He is doing better overall. He ate his dinner. No shortness of breath or other complaints. He has been transferred out of the ICU. OBJECTIVE: Blood pressure 140/78, heart rate 106, respirations 20, afebrile.General: No acute distress. Skin is warm and dry. Conjunctivae are pink. Neck veins are not distended. Heart is regular. No gallops. Lungs are equal. No crackles. Abdomen: Soft, nontender. Bowel sounds present. Extremities: No edema, clubbing or cyanosis. IMPRESSION: Chronic kidney disease 5D. He is doing well, having initiated dialysis. He underwent routine treatment on the . Electrolytes/acid base/volume status all on target. cc: MD Johnny Cramer MD
--- NOTE | 2019-11-21 18:00 | PULMONOLOGY PROGRESS NOTE ---
DATE: 11/21/2019 SUBJECTIVE: The patient is awake, alert, and conversant. He reports he feels well. He reports he does have oxygen at home. OBJECTIVE: Vital Signs: The patient has been afebrile for the last 24 hours. Blood pressure 142/84, heart rate 99, respiratory rate 19, oxygen 99%. HEENT: Pupils are equal and reactive. Oropharynx appears clear. Neck: Supple. Chest reveals crackles at the right base. Cardiovascular: S1-S2. Abdomen: Soft extremities are without edema. DIAGNOSTIC DATA: Postsurgical changes noted on the right. He now has near complete clearing at the right base. IMPRESSION: A 64-year-old with: 1. Acute hypoxemic respiratory failure, status post mechanical ventilation. 2. Pneumonia with near complete radiographic resolution. 3. Acute on chronic renal failure with dialysis during this hospitalization. DISCUSSION: 1. A 64-year-old with problems outlined above. He continues to improve. 2. Fluid management/dialysis as directed per Nephrology. 3. Wean oxygen as tolerated. He does report he has oxygen at home. 4. Consider discharge soon. The patient's radiograph appears to be improving and he will probably be discharged without antibiotics. cc: MD Johnny Conde MD
[2019-11-22] MEDS: ZOSYN 2.25 GM in NS 50 ML IV SCH ×3 (05:19→15:58)
[2019-11-22] MEDS: PROTONIX IV SCH ×2 (05:19→07:01)
[2019-11-22] MEDS: SODIUM CHLORIDE 0.9% INJ SCH (05:20)
[2019-11-22] MEDS: LOVENOX SUBQ SCH (05:20)
[2019-11-22 06:41] LABS: BASO# 0.03 X1000 (0.0-0.2); BASO% 0.8 % (0.0-0.8); EOS# 0.18 X1000 (0.0-0.7); HEMATOCRIT 37.1 % (42.0-52.0); HEMOGLOBIN 11.8 g/dL (14.0-18.0); LYMPH# 0.99 X1000 (1.2-3.4); LYMPH% 27.7 % (20.5-51.1); MCH 25.8 PG (27-31); MCHC 31.8 g/dL (33-37); MCV 81.2 FL (81-99); MONO% 11.2 % (1.7-9.3); MPV 11.8 FL (7.4-10.4); NEUT# 1.98 X1000 (1.4-6.5); NEUT% 55.3 % (42.2-75.2); PLT 133 X1000 (130-400); RBC 4.57 XMIL (4.7-6.1); RDW 15.7 % (11.5-14.5); WBC 3.58 X1000 (4.8-10.8)
[2019-11-22 07:08] LABS: CALCIUM 9.1 mg/dL (8.8-10.2); POTASSIUM 3.7 mmol/L (3.5-5.1)
[2019-11-22 07:15] LABS: CREATININE 5.5 mg/dL (0.7-1.2)
--- NOTE | 2019-11-22 07:41 | Diag Imaging Result Doc PS360 ---
CHEST-1 VIEW - 11/22/2019 INDICATION: SOB COMPARISON: 11/21/2019 FINDINGS: Stable scarring in the right lung base. There is improved aeration of the right upper lobe with decrease of some collapse here. The left lung remains clear. No infiltrates overall. Heart size is normal. No pneumothorax or pleural effusion. IMPRESSION: No acute disease. Electronically signed by Sherif Kumari 11/22/2019 7:39 AM
[2019-11-22] MEDS: XOPENEX NEB INH SCH ×3 (07:58→21:14)
[2019-11-22] MEDS: ATROVENT NEB INH SCH ×3 (07:59→21:14)
[2019-11-22] MEDS: SYMBICORT 160/4.5 MICROGM INHALER INH SCH ×2 (07:59→21:14)
[2019-11-22] MEDS: TOPROL XL PO SCH (08:46)
--- NOTE | 2019-11-22 11:02 | PROGRESS NOTE ---
DATE: 11/22/2019 SUBJECTIVE: The patient says he is feeling a little bit better. He is breathing better. OBJECTIVE: Vital Signs: Blood pressure is 155/84, respirations 20, pulse 105, temp 98.1 degrees Fahrenheit. HEENT: He is normocephalic. EOMS intact. PERRLA. Throat clear. Lungs: Sound clear to auscultation and percussion without rhonchi, rales, or wheezes. Heart: Regular rate and rhythm without murmurs, gallops, or friction rubs. Abdomen: Soft. Active bowel sounds. No organomegaly or tenderness. Neurologic: Intact grossly. LABORATORY DATA: White count 3580, hemoglobin 11.8, hematocrit 37.1. Electrolytes were stable. BUN is 31, creatinine 5.5. He is on dialysis. ASSESSMENT: 1. Respiratory arrest requiring ventilation, now off the ventilator. 2. Pneumonia, now much improved. Chest x-ray today looks clear. 3. Renal failure, now on dialysis. PLAN: Continue support. cc: MD Johnny Mccrary Jr, MD
--- NOTE | 2019-11-22 20:53 | PULMONOLOGY PROGRESS NOTE ---
DATE: 11/22/2019 SUBJECTIVE: The patient is awake, alert and conversant. He is without complaints today. OBJECTIVE: The patient has been afebrile for the last 24 hours. Blood pressure 147/82, heart rate 98, respiratory rate 21, oxygen saturation 100%. The patient now is on room air. HEENT: Pupils are equal and reactive. Oropharynx appears clear. Neck is supple. Chest reveals good air entry bilaterally. Cardiac exam: S1, S2. Abdomen is soft. Extremities without edema. DIAGNOSTIC DATA: Chest x-ray reveals some scarring at the right base with prior surgical changes at the right apex. No evidence of acute infiltrates. LABORATORY DATA: Sodium 131, potassium 3.7, chloride 90, bicarbonate 31, BUN 5.5. White blood count 3.58, hemoglobin 11.8, platelet count 133,000. IMPRESSION: A 64-year-old with: 1. Acute hypoxemic respiratory failure. The patient was on mechanical ventilation on presentation, but this has resolved. 2. Pneumonia. Chest x-ray now appears clear. 3. Stage 5 chronic kidney disease with initialization of dialysis during this hospitalization. PLAN: 1. Discontinue antibiotics with clearing of chest x-ray. 2. Advance diet to regular. 3. Continue bronchial hygiene. 4. From a pulmonary standpoint, he can be discharged. cc: MD Johnny Conde MD
[2019-11-23] MEDS: LOVENOX SUBQ SCH ×2 (04:38→06:14)
[2019-11-23] MEDS ORDERED: NS 2,000 ML MISC PRN (06:52)
[2019-11-23] MEDS ORDERED: TIGHT: 0.2 ML/HR FOR DIALYSIS MISC PRN (06:52)
[2019-11-23] MEDS ORDERED: HEPARIN IV PRN (06:52)
[2019-11-23] MEDS: SYMBICORT 160/4.5 MICROGM INHALER INH SCH ×2 (07:26→19:33)
[2019-11-23] MEDS: XOPENEX NEB INH SCH ×3 (07:29→21:00)
[2019-11-23] MEDS: ATROVENT NEB INH SCH ×3 (07:30→21:00)
[2019-11-23] MEDS: TOPROL XL PO SCH (08:49)
--- NOTE | 2019-11-23 12:22 | NEPHROLOGY PROGRESS NOTE ---
DATE: 11/23/2019 SUBJECTIVE: He is lying in bed on room air, hoping for discharge soon. OBJECTIVE: Vital Signs: Blood pressure 127/77, heart rate 92, respirations 16, afebrile. General: No acute distress. Skin: Warm and dry. Neck: Veins are not distended. Cardiovascular: Heart is regular. No gallops. Lungs: Equal. No crackles. Abdomen: Soft, nontender. Bowel sounds present. Extremities: No edema, clubbing or cyanosis. IMPRESSION AND PLAN: Chronic kidney disease 5D. He will have his routine dialysis treatment today. Outpatient dialysis is arranged. Electrolytes/acid base/anemia/hypertension all in target. Okay for discharge from my perspective. cc: MD Johnny Cramer MD
--- NOTE | 2019-11-23 17:40 | PROGRESS NOTE ---
DATE: 11/23/2019 SUBJECTIVE: Mr. Veliz was doing much better. He denied any chest pain, palpitations, shortness of breath improved. Oral intake was satisfactory, no nausea or vomiting. The patient went for dialysis. The graft was not working, and Dr. Scott made aware and they are going to talk to vascular surgeon, Dr. Kent for arranging for dialysis alternating either to put Vas-Cath or see whether Dr. Kent can fix the graft or not. I am going to hold discharge today. The patient does need dialysis prior to discharge. No chest pain or palpitations. No unusual cough or expectoration. OBJECTIVE: Vital Signs: His vital signs noted. Neck: Supple. No JVD. Lungs: Bilateral good air entry present. Cardiovascular: S1 and S2 heard. Abdomen: Soft, nontender. Bowel sounds present. Central Nervous System: Alert, awake, able to move all 4 limbs. CONSIDERATION: 1. Status post respiratory failure. 2. Stage 5 kidney disease. 3. Recent pneumonia improved. 4. Hypertension. PLAN: Overall patient is doing better. I am going to hold discharge. Overall plan again discussed with the patient and he is in agreement. cc: Johnny Dobbs MD
--- NOTE | 2019-11-23 20:08 | PULMONOLOGY PROGRESS NOTE ---
DATE: 11/23/2019 SUBJECTIVE: The patient is awake, alert and conversant. He is without complaints today. He is scheduled for dialysis this afternoon. He continues to have a Alcantara catheter in place. OBJECTIVE: The patient has been afebrile for the last 24 hours. Blood pressure 145/83, heart rate 100, respiratory rate 18, oxygen saturation 98%. HEENT: Pupils are equal and reactive. Oropharynx appears clear. Neck is supple. Chest reveals good air entry bilaterally with mild prolonged expiratory phase. Cardiac exam: S1, S2. Abdomen is soft. Extremities without edema. LABORATORY DATA: No new chemistries, CBC, arterial blood gas or chest x-ray today. IMPRESSION: A 64-year-old with: 1. Acute hypoxemic respiratory failure. 2. Pneumonia. 3. Stage 5 kidney disease with transition to dialysis. DISCUSSION: A 64-year-old with problems outlined above. His antibiotics have been discontinued. His chest x-ray is clearing. He is now off oxygen. He is tolerating his diet. RECOMMENDATIONS: 1. Okay for discharge from a pulmonary standpoint. 2. The patient to discuss Alcantara catheter with Dr. Scott. If no longer needed, it should be discontinued. 3. No new recommendations. Please call with questions. cc: MD Johnny Conde MD
[2019-11-24] MEDS: LOVENOX SUBQ SCH (06:18)
--- NOTE | 2019-11-24 06:58 | PROGRESS NOTE ---
DATE: 11/24/2019 SUBJECTIVE: Mr. Veliz is doing better. He denied any fever or chills. No nausea or vomiting. The patient is waiting for correction of problem with his AV fistula by surgeon today and then dialysis and then plan is to discharge patient home. No fever or chills. No nausea. OBJECTIVE: Vitals: His vital signs are noted. Neck: Supple. No JVD, thyromegaly or lymphadenopathy. Chest: Bibasilar crepitation. Heart: S1 and S2 heard. Abdomen: Soft, nontender. Bowel sounds present. ASSISTANT UNIT FORESTER: Alert, awake, able to move all 4 limbs. CONSIDERATIONS: 1. Stage 5 chronic kidney disease on hemodialysis. 2. Recent respiratory failure status post mechanical ventilation, clinically doing better. 3. Hypertension. 4. History suggestive of benign prostatic hypertrophy. PLAN: The plan is to discharge patient home after dialysis. Follow up as scheduled. Smoking cessation. Overall plan discussed with the patient and he is in agreement. cc: Johnny Dobbs MD
[2019-11-24] MEDS: TOPROL XL PO SCH ×2 (07:48→11:42)
[2019-11-24] MEDS: ATROVENT NEB INH SCH ×2 (09:30→15:20)
[2019-11-24] MEDS: XOPENEX NEB INH SCH ×2 (09:30→15:20)
[2019-11-24] MEDS: SYMBICORT 160/4.5 MICROGM INHALER INH SCH (09:30)
--- NOTE | 2019-11-24 11:44 | Diag Imaging Result Doc PS360 ---
EXAM: CHEST-PORTABLE HISTORY: s/p vas cath placement TECHNIQUE: Single view COMPARISON: 11/22/2019 FINDINGS: A right jugular catheter has been placed. The tip overlies the mid superior vena cava. The lungs are well expanded. No cardiomegaly. Mild increased interstitial markings throughout both lungs. There are surgical clips and sutures in the right chest. No pleural effusions identified. IMPRESSION: No postprocedural pneumothorax. Electronically signed by Holland Joyner 11/24/2019 11:41 AM
[2019-11-24 11:57] VITALS: BP 157/86
--- NOTE | 2019-11-24 11:58 | OPERATIVE NOTE ---
PROCEDURE DATE: 11/24/2019 PROCEDURE PERFORMED: Right internal jugular vein Vas-Cath placement under ultrasound guidance. SURGEON: Martin Kent MD. PREOPERATIVE DIAGNOSIS: Clotted arteriovenous access. POSTOP DIAGNOSIS: Clotted arteriovenous access. DESCRIPTION OF PROCEDURE: The patient was brought to the PACU and placed in Trendelenburg position. The right side of the neck was prepped and draped in a sterile fashion. We used ultrasound to image the right internal jugular vein. We anesthetized the skin, made a stab incision and accessed the vein and passed the guidewire easily. We then dilated the tract, followed by a Trialysis catheter. Blood came back in each lumen spontaneously. We then flushed each lumen with saline. We secured the flange to the skin with a nylon contained within the tray. Once again, cleaned off the exit site with ChloraPrep and then placed a sterile OpSite. He tolerated it well. A chest x-ray was ordered. cc: MD Johnny Giraldo MD
--- NOTE | 2019-11-24 13:58 | NEPHROLOGY PROGRESS NOTE ---
DATE: 11/24/2019 SUBJECTIVE: Unfortunately Mr. Veliz's access was thrombosed on yesterday. He was taken to the operating room for Vas-Cath placement today. No chest pain, palpitation, nausea, shortness of breath, etc. OBJECTIVE: Vital Signs: Blood pressure 157/86, heart rate 93, respirations 20, afebrile. General: No acute distress. Skin: Warm and dry. Neck: Neck veins are not distended. Heart: Regular with a gallop. Lungs: Equal. No crackles. Abdomen: Soft, nontender. Bowel sounds are present. Extremities: No edema, clubbing or cyanosis. IMPRESSION: 1. Chronic kidney disease 5D. Dialyze today using his Vas-Cath and then it will be removed. We have arranged for him to go to [facility] on Wednesday for thrombectomy. Outpatient dialysis has been arranged. Electrolytes/acid base/volume status all in target. 2. Altered mental status, resolved. Okay for discharge from my perspective but his Vas-Cath must be removed prior to discharge. cc: MD Johnny Cramer MD
[2019-11-24] MEDS ORDERED: TIGHT: 0.2 ML/HR FOR DIALYSIS MISC PRN (16:31)
[2019-11-24] MEDS ORDERED: NS 2,000 ML MISC PRN (16:31)
--- NOTE | 2019-11-25 14:50 | Extremity Venous Study ---
PROCEDURE NAME: Hemodialysis Access U/S L Arm - 11/24/2019 REQUESTING PHYSICIAN: Dr. Kent. COPYWRITER: Horacio. INDICATION: Evaluate graft for patency. EQUIPMENT: [employer] Vivid E9 ultrasound system a 9 L-D transducer. FINDINGS: Images of the left upper extremity AV graft were obtained with attention given to inflow at artery, the graft itself and outflow. There appears to be a clot in the graft approximately 1 cm from the brachial artery anastomosis that extends to the axillary vein, but there does not appear to be any clot in the axillary vein itself. INTERPRETATION: Clot noted in the arteriovenous graft starting 1 cm distal to the brachial artery anastomosis and continuing out through the course. cc: MD Martin Hampton MD Bharat K. Vakharia, MD
--- NOTE | 2019-11-28 09:20 | DISCHARGE SUMMARY ---
ADMISSION DATE: 11/16/2019 DISCHARGE DATE: 11/24/2019 FINAL DISCHARGE DIAGNOSES: 1. Chronic kidney disease, stage 5D. 2. Acute respiratory failure, status post ventilatory support. 3. Hypertension. 4. Hyperlipidemia. 5. Obstructive uropathy. 6. Pneumonia, improved. 7. Gastritis and reflux disease. 8. Malfunctioning arteriovenous fistula for dialysis, requiring Vas Cath. HISTORY OF PRESENT ILLNESS: Mr. Veliz is a 64-year-old, -[place] gentleman, admitted with altered mental status and respiratory failure requiring intubation and mechanical ventilation. Initially, patient was admitted to ICU. The patient was started on hemodialysis. Appreciated pulmonary critical care and Dr. Scott's help managing patient. The patient did fairly well. The patient was extubated successfully. His fistula for dialysis stopped working and we consulted Dr. Kent again. He has to put Vas Cath for dialysis. The patient tolerated procedure well. The patient started dialysis through the Vas Cath. The patient was eager to go home and we discharged patient home on November 24 in satisfactory condition. Patient is clinically doing well. No fever, chills, nausea, or vomiting. The patient was explained discharge planning, medication, and dialysis schedule. Follow up with me in a week. Follow up with Dr. Kent as scheduled. PHYSICAL EXAMINATION: Vital Signs: Noted. Neck: Supple. No JVD. Lungs: A few basilar crepitations. Heart: S1 and S2 heard. Abdomen: Soft, nontender. Bowel sounds present. EXCEL DEVELOPER: Alert, awake able to move all 4 limbs. DISCHARGE INSTRUCTIONS: I advised him to take medicine regularly, follow up with me as scheduled, and, in case of more distress, call us back or go to emergency room. cc: Johnny Dobbs MD
== END 2019-11-24 20:00 | disposition home or self-care (01) | DRG 208 ==
LOC: SUPCPDRO → EDBD → ED 18:58 → ICU 22:07 → MERGE 22:07 → SUATTDRO 22:07 → 2N 11-20 13:21
PROVIDERS: ADMIT Internal Medicine; ATTEND Internal Medicine

== ENCOUNTER 2019-12-18 21:41 | Inpatient (IN) ==
[2019-12-18] MEDS ORDERED: QUELICIN ONE (21:53)
[2019-12-18] MEDS ORDERED: AMIDATE ONE (21:53)
[2019-12-18] MEDS ORDERED: NARCAN ONE (22:00)
[2019-12-18] MEDS ORDERED: DIPRIVAN 1% IV ONE (22:10)
[2019-12-18] MEDS ORDERED: DIPRIVAN 1% 1,000 MG/100 ML BOTTLE ONE (22:10)
[2019-12-18] MEDS ORDERED: NS 1,000 ML IV ONE (22:13)
[2019-12-18] MEDS ORDERED: NS 500 ML ONE ×2 (22:16→23:22)
[2019-12-18 22:22] LABS: ALLEN TEST YES; BLOOD TYPE ARTERIAL; HCO3-(ACT) 20.2 mmoll (20.0-26.0); METHB 0.8 % (0.0-1.5); O2(CT) 17.8 mL/dL (15.0-23.0); PO2(98.6) 383 mmHg (60-100); SAMPLE BLOOD; SAO2 100.6 % (95.0-100.0); THB 12.6 g/dL (11.5-17.4); pH(98.6) 7.22 (7.35-7.45)
[2019-12-18 22:24] LABS: PCO2(98.6) 54 mmHg (35-45)
[2019-12-18 22:25] LABS: MODALITY RESUSC BAG
[2019-12-18] MEDS: DIPRIVAN 1% 1,000 MG/100 ML BOTTLE IV SCH (22:28)
[2019-12-18] MEDS ORDERED: QUELICIN IV ONE (23:09)
[2019-12-18] MEDS ORDERED: AMIDATE IV ONE (23:09)
[2019-12-18 23:31] LABS: URINE SOURCE CATH
[2019-12-18] MEDS ORDERED: DURAGESIC 25 MICROGM/HR PATCH TD ONE (23:31)
[2019-12-18] MEDS ORDERED: FENTANYL IV ONE (23:36)
[2019-12-18] MEDS ORDERED: ZOSYN 3.375 GM in NS 50 ML IV ONE (23:36)
[2019-12-18 23:38] LABS: INR 0.99; PROTIME 13.2 Seconds (11.0-16.0)
[2019-12-18 23:39] LABS: PTT 33.3 Seconds (22.3-41.8)
[2019-12-18 23:41] LABS: ALLEN TEST YES; BE -4.6 mmoll (-3.0-3.0); BLOOD TYPE ARTERIAL; HCO3-(ACT) 21.3 mmoll (20.0-26.0); METHB 0.6 % (0.0-1.5); O2(CT) 9.6 mL/dL (15.0-23.0); O2HB 94.6 % (95.0-99.0); PO2(98.6) 86 mmHg (60-100); SAMPLE BLOOD; SAO2 98.6 % (95.0-100.0); SRATE 18 BPM; THB 7.1 g/dL (11.5-17.4); TVOL 500 mL; pH(98.6) 7.22 (7.35-7.45)
[2019-12-18 23:42] LABS: MODALITY VENTILATOR; PCO2(98.6) 56 mmHg (35-45)
[2019-12-18] MEDS: LEVOPHED 8 MG in D5 1/2 NS 250 ML IV SCH (23:46)
[2019-12-18] MEDS ORDERED: VANCOMYCIN 1 GM/NS 1 GM/250 ML IVPB IV ONE (23:52)
[2019-12-18 23:56] LABS: BILIRUBIN URINE NEGATIVE (NEGATIVE); BLOOD URINE SMALL (NEGATIVE); COLOR YELLOW; GLUCOSE URINE NEGATIVE (NEGATIVE); KETONE URINE NEGATIVE (NEGATIVE); LEUKOCYTES URINE NEGATIVE (NEGATIVE); NITRITE URINE NEGATIVE (NEGATIVE); PH URINE 6.5; PROTEIN URINE 300 mg/dL (NEGATIVE); SP GRAVITY URINE 1.013; TURBIDITY URINE CLEAR (CLEAR); UROBILINOGEN URINE NORMAL (NORMAL)
[2019-12-19] MEDS ORDERED: SOLU-CORTEF IV ONE (00:03)
[2019-12-19] MEDS ORDERED: DUONEB (A & A) INH ONE (00:07)
[2019-12-19 00:12] LABS: UR EPITHELIAL CELLS <10 /HPF (<10); URINE BACTERIA NEGATIVE /HPF; URINE WBC <10 /HPF (<10)
[2019-12-19 00:21] LABS: BASO# 0.13 X1000 (0.0-0.2); BASO% 1.6 % (0.0-0.8); EOS# 0.18 X1000 (0.0-0.7); EOS% 2.2 % (0.0-10.0); HEMATOCRIT 41.4 % (42.0-52.0); HEMOGLOBIN 12.3 g/dL (14.0-18.0); IMM GRAN# 0.06 X1000 (0.0-0.04); IMM GRAN% 0.7 % (0.0-0.5); LYMPH% 44.4 % (20.5-51.1); MCH 26.1 PG (27-31); MCHC 29.7 g/dL (33-37); MCV 87.7 FL (81-99); MONO% 4.8 % (1.7-9.3); MPV 11.1 FL (7.4-10.4); NEUT# 3.87 X1000 (1.4-6.5); NEUT% 46.3 % (42.2-75.2); PLT 232 X1000 (130-400); RBC 4.72 XMIL (4.7-6.1); RDW 17.1 % (11.5-14.5); WBC 8.34 X1000 (4.8-10.8)
[2019-12-19 00:54] LABS: ALB/GLOB RATIO 1.4; ALBUMIN 3.8 g/dL (3.5-5.0); CALCIUM 9.1 mg/dL (8.8-10.2); TOTAL BILIRUBIN 0.25 mg/dL (0.20-1.00); TOTAL PROTEIN 6.6 g/dL (6.3-8.3)
[2019-12-19 01:07] LABS: BASO 2 % (0-1); LYMPHS 45 % (21-51); MONO 6 % (1-9); NRBC 1 % (0-0); SEGS 47 % (42-75)
--- NOTE | 2019-12-19 01:26 | PROVIDER DOCUMENTATION ---
This chart was entered by Zulma Munoz Scribe, acting as scribe for Panda Wong MD. HPI-Respiratory General - General Chief Complaint: Unresponsive Stated Complaint: sob Time Seen by Provider: 12/18/19 21:55 Source: EMS Allergies/Adverse Reactions: Patient Allergies Allergy/AdvReac Type Severity Reaction Status Date / Time No Known Allergies Allergy Verified 11/17/19 09:10 Home Medications: Home Medication List Medication Instructions Recorded Confirmed Last Taken Type Budesonide/Formoterol Inhaler 2 puff INH RTBID inhaler 08/30/19 12/19/19 09/25/19 Rx [Symbicort 160/4.5 Microgm Inhaler] Amlodipine [Norvasc] 5 mg PO DAILY 11/16/19 12/19/19 Unknown History Tamsulosin [Flomax] 0.4 mg PO DAILY 11/16/19 12/19/19 Unknown History Albuterol Sulfate [Ventolin Hfa] 18 gm INHALATION 4XDAY PRN PRN #1 11/23/19 12/19/19 Unknown Rx hfa.aer.[email or web address] Metoprolol Succinate E.r. [Toprol 25 mg PO DAILY tab 11/23/19 12/19/19 Unknown Rx Xl] - History of Present Illness-Resp Nature of Presenting Problem: pt is a 64 yobm presenting w/ems due to respiratory distress. ems sts pt was home around 0 went outside and back inside, told family he didn't feel good, became sob and upper body started twitching. pt was extremely diaphoretic at ems arrival, hypoxic. pt had 1 IV versed w/ems. pt was admitted to hospital for poss PNA or [place] in october. pt has hx of renal failure, port in place. rx symbicort, 5 norvasq, .4 flomax and 25 metropolol. pt became unresponsive among er arrival. pt cool to touch, pupils pinpoint and tachycardic but will respond to painful stimuli. 100 succs, 20 atomodate @ 2158 7.5, 25 at lip 2202 Severity in ED: reports: severe Onset/Duration: reports: 1-3 hours ago Timing: reports: still present Current Respiratory Medication Therapy: Initiated albuterol Review of Systems - Adult - REVIEW OF SYSTEMS - ADULT ROS:: per EMS Constitutional: reports: see HPI, other (unable to obtain). denies: chills, fever, fatique Eyes: reports: see HPI, other (unable to obtain). denies: discharge, dry eyes, eye pain Ears, Nose, Mouth & Throat: reports: other (unable to obtain) Cardiovascular: reports: other (unable to obtain). denies: chest pain, palpitations, poor circulation Respiratory: reports: see HPI, shortness of breath, other (unable to obtain respiratory distress noted by EMS) Gastrointestinal: reports: other (unable to obtain) Genitourinary: reports: other (unable to obtain) Musculoskeletal: reports: other (unable to obtain) Integumentary: reports: other (unable to obtain) Neurological: reports: other (unable to obtain) Psychiatric: reports: other (unable to obtain) Endocrine: reports: other (unable to obtain) All Other Systems: Reviewed and Negative Past History - Adult - PAST MEDICAL HISTORY-ADULT Review of Records: reports: Old Records Reviewed, Nursing Assessment Review, Medications Reviewed, Social history reviewed & non-contributory. Major Childhood Illnesses: reports: denies history Cardiovascular: reports: HTN Respiratory: reports: COPD, cancer (lower lobe removed) Gastrointestinal: reports: denies history Obstetrical/Gynecological: reports: denies history Genitourinary: reports: ESRD Musculoskeletal: reports: denies history Neurological: reports: denies history Endocrine/Immune: reports: denies history Other Conditions: reports: denies history - PRIOR SURGERIES/PROCEDURES Surgical/Procedure History: reports: other - IMMUNIZATION STATUS Childhood Immunizations: See Nurse Assessment Flu Vaccine: See Nurse Assessment - FAMILY HISTORY Family History: reviewed, not pertinent - SOCIAL HISTORY Smoking: cigarettes, greater than 1 pack/day Substance Use: none/never Living Situation: family Physical Exam-General - PHYSICAL EXAM-ADULT Initial Vital Signs Reviewed: Yes - CONSTITUTIONAL General Appearance: severe distress, obtunded - EYES Eyes: other (pinpoint pupils) - HEAD, EARS, NOSE, MOUTH & THROAT HENMT: normocephalic/atraumatic, moist mucous membranes (copious secretions) - NECK Neck: non-tender, full range of motion - RESPIRATORY Respiratory: chest non-tender, no accessory muscle use, respiratory distress, decreased breath sounds (coarse), crackles. negative: lungs clear, normal b reath sounds, no respiratory distress, stridor - CARDIOVASCULAR Cardiovascular: tachycardia. negative: regular rate, rhythm, JVD, bradycardia, friction rub, irregularly irregular - GASTROINTESTINAL (ABDOMEN) Abdominal Exam: normal bowel sounds, non tender, soft - MUSCULOSKELETAL Back Exam: normal inspection Extremity: non-tender, other (port in place, left upper extremity) Peripheral Pulses: radial (L): 1+ (weak, tachy pulse ) - SKIN Integumentary: normal color, normal turgor, other (cool to palp). negative: war m/dry, ecchymosis, swelling, tenderness - NEUROLOGIC Neurologic: other (unable to test due to pt condition) - PSYCHIATRIC Psych/Mental Status: other (limited testing due to pt condition, but pt would respond to painful stimuli/sternal rub). negative: normal mood/affect, normal thought content, normal thought process Progress - PLAN OF CARE/RESULTS Progress/Plan/Lab Results: Vital Signs - 8 hr 12/18/19 21:50 12/18/19 21:52 12/18/19 22:05 Temperature 95.6 F L Pulse Rate 120 H 122 H Respiratory Rate 30 H 21 Blood Pressure 171/97 171/97 O2 Sat by Pulse Oximetry 100 12/18/19 22:09 12/18/19 22:11 12/18/19 22:24 Temperature Pulse Rate 109 H 109 H 121 H Respiratory Rate 29 H 23 Blood Pressure 81/64 107/71 175/117 O2 Sat by Pulse Oximetry 12/18/19 22:27 12/18/19 22:32 12/18/19 22:37 Temperature Pulse Rate 107 H 102 H 102 H Respiratory Rate 22 27 H 25 H Blood Pressure 122/54 109/59 111/46 O2 Sat by Pulse Oximetry 100 12/18/19 22:43 12/18/19 22:47 12/18/19 22:56 Temperature Pulse Rate 100 H 101 H 94 H Respiratory Rate 29 H 27 H 32 H Blood Pressure 66/52 88/57 101/48 O2 Sat by Pulse Oximetry 100 12/18/19 22:57 12/18/19 23:02 12/18/19 23:07 Temperature Pulse Rate 95 H 94 H 94 H Respiratory Rate 35 H 32 H 36 H Blood Pressure 103/47 89/50 82/39 O2 Sat by Pulse Oximetry 100 100 100 12/18/19 23:12 12/18/19 23:15 12/18/19 23:17 Temperature Pulse Rate 93 H 93 H 93 H Respiratory Rate 24 26 H 24 Blood Pressure 89/36 87/38 O2 Sat by Pulse Oximetry 12/18/19 23:22 12/18/19 23:27 12/18/19 23:32 Temperature Pulse Rate 94 H 92 H 91 H Respiratory Rate 26 H 25 H 26 H Blood Pressure 76/55 99/47 112/45 O2 Sat by Pulse Oximetry 100 100 12/18/19 23:37 12/18/19 23:42 12/18/19 23:45 Temperature Pulse Rate 89 89 89 Respiratory Rate 25 H 25 H 25 H Blood Pressure 104/47 90/60 O2 Sat by Pulse Oximetry 95 96 12/18/19 23:47 12/18/19 23:52 12/18/19 23:57 Temperature Pulse Rate 90 90 90 Respiratory Rate 25 H 26 H 26 H Blood Pressure 96/45 91/54 105/56 O2 Sat by Pulse Oximetry 98 99 12/19/19 00:02 12/19/19 00:07 12/19/19 00:12 Temperature Pulse Rate 90 91 H 89 Respiratory Rate 26 H 26 H 23 Blood Pressure 103/54 87/64 90/43 O2 Sat by Pulse Oximetry 100 92 L 98 12/19/19 00:15 12/19/19 00:17 Temperature Pulse Rate 89 88 Respiratory Rate 24 21 Blood Pressure 86/41 O2 Sat by Pulse Oximetry 99 100 Laboratory Results - last 24 hr 12/18/19 12/18/19 12/18/19 22:00 22:00 22:00 WBC 8.34 RBC 4.72 Hgb 12.3 L Hct 41.4 L MCV 87.7 MCH 26.1 L MCHC 29.7 L RDW Std Deviation 17.1 H Plt Count 232 MPV 11.1 H Immature Gran % (Auto) 0.7 H Neut % (Auto) 46.3 Lymph % (Auto) 44.4 Yates % (Auto) 4.8 Eos % (Auto) 2.2 Baso % (Auto) 1.6 H Immature Gran # (Auto) 0.06 H Neut # (Auto) 3.87 Lymph # (Auto) 3.70 H Yates # (Auto) 0.40 Eos # (Auto) 0.18 Baso # (Auto) 0.13 Segmented Neutrophils 47 Lymphocytes 45 Monocytes 6 Basophils 2 H Nucleated RBCs 1 H PT INR PTT (Actin FS) D-Dimer, Quantitative 2.75 H Specimen Type Sample Site pH pCO2 pO2 HCO3 Base Excess Oxyhemoglobin ABG O2 Sat (Calculated) ABG O2 Saturation ABG Carboxyhemoglobin ABG Methemoglobin Lopez Test A-a O2 Difference Total Hemoglobin Lactate Liter Flow Blood Gas Modality Vent Mode Spontaneous Rate FiO2 % Tidal Volume PEEP Sodium Potassium Chloride Carbon Dioxide Anion Gap BUN Creatinine Estimated GFR/1.73 m2 BUN/Creatinine Ratio Glucose POC Glucose Calculated Osmolality Calcium Total Bilirubin AST ALT Alkaline Phosphatase Creatine Kinase 119 Troponin T High Sens Total Protein Albumin Globulin Albumin/Globulin Ratio Plasma Lactate Cortisol Urine Source Urine Color Urine Turbidity Urine pH Ur Specific [place] Urine Protein Ur Glucose (Stick) Ur Ketones (Stick) Urine Blood Urine Nitrite Urine Bilirubin Urobilinogen Dipstick Urine Leukocytes Urine WBC (Auto) Urine RBC (Auto) U Epithel Cells (Auto) Urine Bacteria (Auto) 12/18/19 12/18/19 12/18/19 22:00 22:00 22:00 WBC RBC Hgb Hct MCV MCH MCHC RDW Std Deviation Plt Count MPV Immature Gran % (Auto) Neut % (Auto) Lymph % (Auto) Yates % (Auto) Eos % (Auto) Baso % (Auto) Immature Gran # (Auto) Neut # (Auto) Lymph # (Auto) Yates # (Auto) Eos # (Auto) Baso # (Auto) Segmented Neutrophils Lymphocytes Monocytes Basophils Nucleated RBCs PT 13.2 INR 0.99 PTT (Actin FS) 33.3 D-Dimer, Quantitative Specimen Type Sample Site pH pCO2 pO2 HCO3 Base Excess Oxyhemoglobin ABG O2 Sat (Calculated) ABG O2 Saturation ABG Carboxyhemoglobin ABG Methemoglobin Lopez Test A-a O2 Difference Total Hemoglobin Lactate Liter Flow Blood Gas Modality Vent Mode Spontaneous Rate FiO2 % Tidal Volume PEEP Sodium Potassium Chloride Carbon Dioxide Anion Gap BUN Creatinine Estimated GFR/1.73 m2 BUN/Creatinine Ratio Glucose POC Glucose Calculated Osmolality Calcium Total Bilirubin AST ALT Alkaline Phosphatase Creatine Kinase Troponin T High Sens 35 H Total Protein Albumin Globulin Albumin/Globulin Ratio Plasma Lactate 2.9 H Cortisol Urine Source Urine Color Urine Turbidity Urine pH Ur Specific [place] Urine Protein Ur Glucose (Stick) Ur Ketones (Stick) Urine Blood Urine Nitrite Urine Bilirubin Urobilinogen Dipstick Urine Leukocytes Urine WBC (Auto) Urine RBC (Auto) U Epithel Cells (Auto) Urine Bacteria (Auto) 12/18/19 12/18/19 12/18/19 22:00 22:00 22:02 WBC RBC Hgb Hct MCV MCH MCHC RDW Std Deviation Plt Count MPV Immature Gran % (Auto) Neut % (Auto) Lymph % (Auto) Yates % (Auto) Eos % (Auto) Baso % (Auto) Immature Gran # (Auto) Neut # (Auto) Lymph # (Auto) Yates # (Auto) Eos # (Auto) Baso # (Auto) Segmented Neutrophils Lymphocytes Monocytes Basophils Nucleated RBCs PT INR PTT (Actin FS) D-Dimer, Quantitative Specimen Type ARTERIAL Sample Site R RADIAL pH 7.22 L pCO2 54 H* pO2 383 H HCO3 20.2 Base Excess -6.0 L Oxyhemoglobin 95.0 ABG O2 Sat (Calculated) 17.8 ABG O2 Saturation 100.6 H ABG Carboxyhemoglobin 4.80 H ABG Methemoglobin 0.8 Lopez Test YES A-a O2 Difference 263.0 Total Hemoglobin 12.6 Lactate 2.30 H Liter Flow 15.0 Blood Gas Modality RESUSC BAG Vent Mode Spontaneous Rate FiO2 % 100.0 Tidal Volume PEEP Sodium 143 Potassium 5.0 Chloride 107 Carbon Dioxide 18 L Anion Gap 18 BUN 30 H Creatinine 5.0 H Estimated GFR/1.73 m2 14 BUN/Creatinine Ratio 6 Glucose 170 H POC Glucose Calculated Osmolality 295 Calcium 9.1 Total Bilirubin 0.25 AST 71 H ALT 39 Alkaline Phosphatase 115 Creatine Kinase Troponin T High Sens Total Protein 6.6 Albumin 3.8 Globulin 2.8 Albumin/Globulin Ratio 1.4 Plasma Lactate Cortisol 23.2 Urine Source Urine Color Urine Turbidity Urine pH Ur Specific [place] Urine Protein Ur Glucose (Stick) Ur Ketones (Stick) Urine Blood Urine Nitrite Urine Bilirubin Urobilinogen Dipstick Urine Leukocytes Urine WBC (Auto) Urine RBC (Auto) U Epithel Cells (Auto) Urine Bacteria (Auto) 12/18/19 12/18/19 12/18/19 22:13 22:43 23:31 WBC RBC Hgb Hct MCV MCH MCHC RDW Std Deviation Plt Count MPV Immature Gran % (Auto) Neut % (Auto) Lymph % (Auto) Yates % (Auto) Eos % (Auto) Baso % (Auto) Immature Gran # (Auto) Neut # (Auto) Lymph # (Auto) Yates # (Auto) Eos # (Auto) Baso # (Auto) Segmented Neutrophils Lymphocytes Monocytes Basophils Nucleated RBCs PT INR PTT (Actin FS) D-Dimer, Quantitative Specimen Type ARTERIAL Sample Site R RADIAL pH 7.22 L pCO2 56 H* pO2 86 HCO3 21.3 Base Excess -4.6 L Oxyhemoglobin 94.6 L ABG O2 Sat (Calculated) 9.6 L ABG O2 Saturation 98.6 ABG Carboxyhemoglobin 3.50 H ABG Methemoglobin 0.6 Lopez Test YES A-a O2 Difference 201.0 Total Hemoglobin 7.1 L Lactate 1.20 Liter Flow Blood Gas Modality VENTILATOR Vent Mode A/C Spontaneous Rate 18 FiO2 % 50.0 Tidal Volume 500 PEEP 5.0 Sodium Potassium Chloride Carbon Dioxide Anion Gap BUN Creatinine Estimated GFR/1.73 m2 BUN/Creatinine Ratio Glucose POC Glucose 83 Calculated Osmolality Calcium Total Bilirubin AST ALT Alkaline Phosphatase Creatine Kinase Troponin T High Sens Total Protein Albumin Globulin Albumin/Globulin Ratio Plasma Lactate Cortisol Urine Source CATH Urine Color YELLOW Urine Turbidity CLEAR Urine pH 6.5 Ur Specific [place] 1.013 Urine Protein 300 A Ur Glucose (Stick) NEGATIVE Ur Ketones (Stick) NEGATIVE Urine Blood SMALL A Urine Nitrite NEGATIVE Urine Bilirubin NEGATIVE Urobilinogen Dipstick NORMAL Urine Leukocytes NEGATIVE Urine WBC (Auto) <10 Urine RBC (Auto) 10-20 A U Epithel Cells (Auto) <10 Urine Bacteria (Auto) NEGATIVE Orders Category Date Time Status Cardiac Monitoring DIRECTED Care 12/18/19 22:13 Active IV Insertion ORDERED Care 12/18/19 22:13 Completed Notify MD of + Sepsis Screen NOW Care 12/18/19 22:13 Active Notify Physician As Ordered Care 12/18/19 22:13 Active CHEST-PORTABLE [RAD] Stat Exams 12/18/19 21:59 Taken ABG [RESP] Routine Lab 12/18/19 22:02 Completed ABG [RESP] Routine Lab 12/18/19 23:31 Completed BLOOD CULTURE [BLDCUL] Stat Lab 12/18/19 22:52 Ordered CBC WITH DIFF [HEME] Stat Lab 12/18/19 22:00 Completed CK PROFILE [SP CHEM] Stat Lab 12/18/19 22:00 Completed COMPREHENSIVE METABOLIC PANEL [CHEM] Stat Lab 12/18/19 22:00 Completed CORTISOL Stat Lab 12/19/19 00:03 Completed D-DIMER [COAG] Stat Lab 12/18/19 22:00 Completed LACTATE, PLASMA [CHEM] Lab 12/18/19 22:00 Completed LACTATE, PLASMA [CHEM] Lab 12/19/19 01:15 Uncollected LACTATE, PLASMA [CHEM] Lab 12/19/19 04:15 Uncollected PROTIME WITH INR [COAG] Stat Lab 12/18/19 22:00 Completed PTT [COAG] Stat Lab 12/18/19 22:00 Completed TROPONIN T HIGH SENSITIVITY Stat Lab 12/18/19 22:00 Completed URINALYSIS W/POSS RFLX CULT [URINALYSIS] Stat Lab 12/18/19 22:43 Completed 0.9% Sodium Chloride Inj [Ns] 1,000 ml Med 12/18/19 22:13 Discontinued IV 999 mls/hr 0.9% Sodium Chloride Inj [Ns] 500 ml Med 12/18/19 22:16 Discontinued .ROUTE As directed 0.9% Sodium Chloride Inj [Ns] 500 ml Med 12/18/19 23:22 Discontinued .ROUTE As directed Albuterol 2.5MG/Ipratrop 0.5MG [Duoneb (A & A)] Med 12/19/19 00:07 Discontinued 3 ml INH NOW ONE Dextrose 5%-0.45% NaCl Inj [D5 /2 Ns] 250 ml Med 12/18/19 22:15 Active Norepinephrine [Levophed] 8 mg IV As Directed mls/hr Etomidate [Amidate] Med 12/18/19 23:09 Discontinued 20 mg IV NOW ONE Etomidate [Amidate] Med 12/18/19 21:53 Discontinued 40 mg .ROUTE .STK-MED ONE Fentanyl Med 12/18/19 23:36 Discontinued 25 microgm IV NOW ONE Fentanyl 25 Microgm/Hr Patch [Duragesic 25 Microgm/Hr Med 12/18/19 23:31 Discontinued Patch] 1 each TD NOW ONE Hydrocortisone Sod Succinate [Solu-Cortef] Med 12/19/19 00:03 Discontinued 100 mg IV NOW ONE Naloxone [Narcan] Med 12/18/19 22:00 Discontinued 0.8 mg .ROUTE .STK-MED ONE Piperacillin/Tazobactam [Zosyn] 3.375 gm Med 12/18/19 23:36 Discontinued 0.9% Sodium Chloride Inj [Ns] 50 ml IV NOW Propofol [Diprivan 1%] Med 12/18/19 22:10 Discontinued 10 mg IV NOW ONE Propofol [Diprivan 1%] Med 12/18/19 22:10 Discontinued 1,000 mg in 100 ml .ROUTE As directed Propofol [Diprivan 1%] Med 12/18/19 22:15 Active 1,000 mg in 100 ml IV As Directed mls/hr Succinylcholine [Quelicin] Med 12/18/19 23:09 Discontinued 100 mg IV NOW ONE Succinylcholine [Quelicin] Med 12/18/19 21:53 Discontinued 200 mg .ROUTE .STK-MED ONE Vancomycin 1 gm/Ns Med 12/18/19 23:52 Discontinued 1 gm in 250 ml IV NOW Aerosol Treatments Routine Oth 12/19/19 00:07 Active Aerosol Treatments Stat Ot 12/19/19 00:07 Active Oxygen Device Stat Ot 12/18/19 22:13 Active Transfer/Admit Order [TRANSFER] Routine Transfer 12/18/19 23:53 Ordered Pt intubated; placed on propofol drip; pt also placed on levophed drip, due to severe hypotension; respiratory acidosis on ABG; with elevated lactate; pt also has elevated d-dimer, will f/u with doppler u/s; risk factor for pt is low given limited history, and the elevation in d-dimer may be due more so to his ESRD; Well's scoring is 4.5; his acute hypoxia may be secondary to a pneumonia as well, given the abnormal CXR; will plan for doppler u/s; if suspicion remains high, consider V/Q scan or CTA pulm in the AM. Result Diagrams: 12/18/19 22:00 12/18/19 22:00 - EKG 1 Time of EKG reading by physician:: 22:13 EKG Read and Signed by:: Hadley Velazquez EKG Interpretation (*Must complete 3 of following elements*): Normal (borderline) Rate: 114 (possible left atrial enlargement ) Rhythm: ST [place]: normal QRS: normal [place] Interval: normal ST Wave: normal - XRAY 1 XRAY Study: Chest Impression: See EMR Report (Endotracheal tube 4.8 cm proximal to mk; possible ill-define consolidation in the left lung) - CONSULTS/PCP/HOSPITALIST Notification #1 *Consult/PCP/Hospitalist*: Dr. Rodriguez Time Discussed: 23:00 Consult Disposition: Admit Procedures - INTUBATION Time of Intubation: 22:22 Airway Evaluation: Copious Secretions Mallampati Class: 1 Intubation Method: orotracheal Equipment: Glidescope Tube Size (cm): 7.5 Pretreated with 100% Oxygen?: Yes Breath Sounds after Intubation: equal ETT Primary Tube Confirmation: Capnometry CO2 Change, Direct Visualization, Chest Rise and Fall, Tube placement verified on XRAY Intubation Complications: no complications Vent Settings: See Respiratory Therapy Notes Departure - Departure Date of Disposition Decision: 12/18/19 Time of Disposition Decision: 23:07 DIAGNOSIS: Respiratory distress Disposition: ADMITTED INPATIENT 09 Certified Medical Emergency: Emergent Condition: Fair - Critical Care Note This patient required my direct & personal management of CC.: No Attestation - Physician/ JOHANA Attestation Patient care was provided by Advanced Practice Provider:: No The physician spent face to face time with patient:: Yes Advanced Practice Provider documentation review:: Supervising physician onsite and consulted in the evaluation and care of this patient. The physician did have a face to face encounter with the patient. This chart was documented by the indicated scribe, (Zulma Munoz Scribe) and accurately reflects the services I performed and decisions made by , Panda Wong MD, as attested by the provider's signature.
--- NOTE | 2019-12-19 01:36 | HISTORY AND PHYSICAL ---
REASON FOR ADMISSION: Unresponsiveness preceded by acute respiratory distress. PRIMARY CARE PHYSICIAN: Johnny Dobbs. HISTORY OF PRESENT ILLNESS: Mr. Ajith Veliz is a 64-year-old black male with a history of chronic kidney disease on dialysis, BPH, hypertension, and COPD who comes in today after alerting EMS because he could not breathe. By time the EMS got there the patient was confused and in respiratory distress. They did notice after a while he was having some "twitching episodes," and they started to Ambu bag him. On arrival to the ER he was intubated. Unfortunately no family members are accompanied him. His last admission here was in October of 2019 when he was admitted for a similar episode of being unresponsive and subsequently being intubated. There was a mention in his notes that his dialysis access has been somewhat defective, but I do not know if this patient is actively receiving dialysis. His last admission the patient was treated for pneumonia at that time. As I stated earlier I am unable to get any meaningful history from anyone. REVIEW OF SYSTEMS: Could not be obtained. ALLERGIES: No known allergies. HOME MEDICATIONS: Have not been officially reconciled. SOCIAL HISTORY: The patient does smoke 1 pack a day. FAMILY HISTORY: Per his records both parents of strokes. PAST SURGICAL HISTORY: He has had 2 AV fistula sites for dialysis. The lung cancer was removed as evidenced by right thoracotomy scar. LABORATORY DATA: Is still pending most of it, but the ones I have been able to get his D-dimer is 2.75. PTT is normal. Urinalysis with 300 protein. The microscopic component still pending. Blood gas on FiO2 of 50, tidal volume 600, PEEP of 5, and a assist control rate of 18. His pH is 7.22, pCO2 of 56, PO2 of 86. IMAGING: His chest film reviewed by me shows left lower lobe opacities and infiltrate with superimposed on top of chronic increased vascular markings versus interstitial disease. PHYSICAL EXAMINATION: GENERAL: A middle-aged man, intubated, sedated. VITAL SIGNS: Blood pressure is 75/50s, heart rate is 110. He is breathing at 18% set rate. He is hypothermic with a temperature of 95.6 degrees. He is completely sedated and unresponsive. HEENT: His head is atraumatic and normocephalic. His eyes are miotic and barely reactive, anicteric and not pale. No oral exam. No central cyanosis noted. NECK: Supple. No JVD. No bruit. No thyromegaly visualized. CHEST: Decreased entry in the bases with few a expiratory wheezes with few crepitations. CARDIOVASCULAR: 1st and 2nd sounds heard. No gallops, murmurs or rubs. Regular. ABDOMEN: Full, soft. No rigidity noted. No masses appreciated. Bowel sounds are hypoactive. RECTAL: Deferred. EXTREMITIES: No edema, clubbing or cyanosis. He has a Ulises Hugger in place. His extremities are warm to touch. He still has surprisingly good distal pulse volumes in the upper extremities more than the lower extremities. They are regular and symmetrical. No edema. He has grade 3 clubbing. No peripheral cyanosis noted. The patient is spontaneously moving in bed slowly. The patient has dialysis AV access in his left upper extremity, I cannot palpate any thrill. MINERAL SURVEYING TECHNICIAN: No focal motor deficits. SKIN: No overt breakdown anteriorly. I did not examine the posterior aspect. Exam is grossly normal. ASSESSMENT: 1. Septic shock secondary to possible aspiration, cannot rule out diffuse severe COPD exacerbation, and probably less likely pulmonary embolus. 2. Very likely left lobe pneumonia. 3. COPD exacerbation. 4. End-stage renal disease. 5. Acute respiratory failure secondary to pneumonia and COPD. 6. BPH. PLAN: Currently awaiting the patient's outstanding medication and labs. Based on my findings thus far this patient probably has left lower lobe pneumonia, which may have incited COPD exacerbation and acute respiratory failure, which probably caused hypoxia and a transient seizure event. Based on the Wells criteria this patient appears to have a low risk for PE as the alternative diagnosis for this. However, because I have not gotten the full picture of this patient's history, we will do venous Doppler studies now tonight, if they are positive we will start the patient on heparin drip. If they are negative then we will feel a little bit more reassured that this might not have been a PE. A V/Q scan can be ordered tomorrow morning. In the interim DVT prophylaxis will be instituted. We will start the patient on short and long-acting bronchodilators. I ordered a random cortisol test because I noticed the patient was taking inhaled steroids which makes me believe he may have been taking also systemic steroids in the past. In the interim put the patient on a stress dose of steroids. Start the patient on broad- spectrum antibiotics. Cultures have been ordered. The patient has surprisingly good decent capillary refill on my evaluation. GI prophylaxis will be ordered. The patient will have an ABG, chest film, and labs done daily. Consult Dr. Scott for probable hemodialysis later today. TIME SPENT: Total critical care time is 40 minute. If need be I will do an addendum if anything significant arises for his blood work or testing tonight. cc: MD Johnny Tineo MD MTDD
[2019-12-19] MEDS ORDERED: FENTANYL IV PRN (02:21)
[2019-12-19] MEDS ORDERED: ZOFRAN IV PRN (02:21)
[2019-12-19] MEDS ORDERED: NS 1,000 ML IV SCH (02:21)
[2019-12-19] MEDS ORDERED: TYLENOL PO PRN (02:21)
[2019-12-19] MEDS: PEPCID IV SCH ×2 (03:00→14:05)
[2019-12-19] MEDS: DUONEB (A & A) INH SCH ×4 (03:25→21:35)
[2019-12-19] MEDS: HEPARIN SUBQ SCH ×2 (03:55→14:05)
[2019-12-19] MEDS: DIPRIVAN 1% 1,000 MG/100 ML BOTTLE IV SCH ×6 (03:56→22:06)
[2019-12-19 04:35] LABS: ALLEN TEST YES; BE -4.5 mmoll (-3.0-3.0); BLOOD TYPE ARTERIAL; HCO3-(ACT) 21.4 mmoll (20.0-26.0); METHB 1.3 % (0.0-1.5); O2(CT) 18.6 mL/dL (15.0-23.0); O2HB 95.3 % (95.0-99.0); PCO2(98.6) 30 mmHg (35-45); PO2(98.6) 153 mmHg (60-100); SAMPLE BLOOD; SAO2 99.2 % (95.0-100.0); SRATE 18 BPM; THB 13.7 g/dL (11.5-17.4); TVOL 600 mL; pH(98.6) 7.41 (7.35-7.45)
[2019-12-19 04:37] LABS: MODALITY VENTILATOR
[2019-12-19] MEDS ORDERED: TIGHT: 0.2 ML/HR FOR DIALYSIS MISC PRN (06:27)
[2019-12-19] MEDS ORDERED: HEPARIN IV PRN (06:27)
[2019-12-19] MEDS ORDERED: NS 2,000 ML MISC PRN ×2 (06:27→09:13)
[2019-12-19] MEDS: ZOSYN 2.25 GM in NS 50 ML IV SCH ×3 (06:33→18:28)
[2019-12-19 06:45] LABS: HEMATOCRIT 34.2 % (42.0-52.0); HEMOGLOBIN 10.5 g/dL (14.0-18.0); MCH 26.9 PG (27-31); MCHC 30.7 g/dL (33-37); MCV 87.7 FL (81-99); MPV 11.4 FL (7.4-10.4); RBC 3.9 XMIL (4.7-6.1); WBC 9.01 X1000 (4.8-10.8)
--- NOTE | 2019-12-19 07:16 | Diag Imaging Result Doc PS360 ---
EXAM: CHEST-PORTABLE INDICATION: et tube TECHNIQUE: 2 views COMPARISON: 11/24/2019 FINDINGS: There is a newly placed ET tube. The tip projecting over the trachea and above the mk at about the T4 level. There is advanced pulmonary emphysema. There are postsurgical changes in the hilar region and right lung apex that are stable. There are stable fibrotic changes at the right lung base. There is ill-defined airspace consolidation involving the left mid and lower lung zone indicating pneumonia. There is no discrete pleural fluid collection or pneumothorax. The cardiomediastinal silhouette and central vasculature are grossly unremarkable. IMPRESSION: Airspace consolidation in the left mid and lower lung zone indicating pneumonia. Electronically signed by Roby Munoz 12/19/2019 7:14 AM
--- NOTE | 2019-12-19 07:26 | Diag Imaging Result Doc PS360 ---
EXAM: CHEST-1 VIEW INDICATION: vent pt and NGT placement TECHNIQUE: One view COMPARISON: 12/18/2019 FINDINGS: Support tubes and lines are in stable positions. The infiltrate at the left mid and lower lung zone appears to have improved slightly since the recent prior study. No new consolidation is identified. Cardiac silhouette is stable. IMPRESSION: Improvement of the infiltrate on the left as described. Electronically signed by Roby Munoz 12/19/2019 7:24 AM
--- NOTE | 2019-12-19 08:05 | EKG Report ---
Test Performed on : 12/18/2019 10:13:14 PM Test Reason : SOB Blood Pressure : / mmHG Vent. Rate : 114 BPM Atrial Rate : 114 BPM P-R Int : 140 ms QRS Dur : 086 ms QT Int : 360 ms P-R-T Axes : 087 066 044 degrees QTc Int : 496 ms Sinus tachycardia. Possible Left atrial enlargement Borderline ECG When compared with ECG of 20-SEP-2019 09:05, No significant change was found Unconfirmed Result
[2019-12-19 08:11] LABS: CALCIUM 8.3 mg/dL (8.8-10.2); POTASSIUM 5.6 mmol/L (3.5-5.1)
--- NOTE | 2019-12-19 08:15 | PROGRESS NOTE ---
DATE: 12/19/2019 SUBJECTIVE: A 64-year-old, gentleman, admitted with respiratory failure. The patient is intubated, admitted to ICU, not able to give any history. Admission history and physical noted. The patient was going to dialysis as per Dr. Scott. No high-grade fever or chills. No nausea or vomiting. OBJECTIVE: Vital Signs: Noted. Neck: Supple. The patient does have JVD. CVS: S1 and S2 heard. Abdomen: Soft, globular. Bowel sounds present. Extremities: No cyanosis, clubbing. No acute DVT. POPCORN MACHINE OPERATOR: The patient is sedated, on the ventilator. LABORATORY DATA: This morning, WBC count 9.01, hemoglobin 10.5, hematocrit 34.2, platelet count 178,000. Blood gas: PH 7.41, pCO2 of 30, PO2 of 153. This was done on ventilator. High- sensitivity troponin was 83. Plasma lactate 1.4. Electrolyte results are pending. CONSIDERATION: Acute respiratory failure, end-stage renal disease on hemodialysis, hypertension, chronic obstructive pulmonary disease. Left lower lobe pneumonia cannot be ruled out. PLAN: Will continue current treatment. Close observation. Overall prognosis is fair to guarded. cc: Johnny Dobbs MD
[2019-12-19] MEDS: SOLU-CORTEF IV SCH ×3 (08:28→19:57)
[2019-12-19] MEDS: PROTONIX IV SCH (08:28)
[2019-12-19] MEDS: BROVANA NEB INH SCH ×2 (15:52→21:35)
[2019-12-19] MEDS: LEVOPHED 8 MG in D5 1/2 NS 250 ML IV SCH (16:29)
--- NOTE | 2019-12-19 17:40 | ECHO REPORT ---
ORDER DATE: 12/19/2019 MEASUREMENTS: Septal thickness 1.4, left ventricular internal diameter end-diastole 3.9. Posterior wall thickness 1.4, aortic root 3.3, left atrium 2.8. SUMMARY: 1. Technically difficult study due to limited acoustic window quality. 2. Aortic valve is without evidence of structural abnormality and opens adequately on 2- dimensional images. The peak gradient across aortic valve is less than 10 mmHg. There is trace aortic regurgitation. Mitral and tricuspid valves are without gross structural abnormality while pulmonic valve is not well demonstrated. The aortic root is normal in size. 3. Normal left ventricular chamber size with mild to moderate concentric left hypertrophy demonstrated. The estimated left ventricular ejection fraction is approximately 35 to 40% in the setting of global hypokinesis. Left atrium is mildly enlarged on 2-dimensional images. The right atrium and right ventricle are grossly normal in size. 4. No pericardial effusion. 5. Inferior vena cava not well demonstrated. 6. Sinus tachycardia during study. cc: MD Sharif Carranza MD Bharat K. Vakharia, MD
--- NOTE | 2019-12-19 18:20 | PULMONOLOGY CONSULTATION ---
DATE: 12/19/2019 REQUESTING PHYSICIAN: REASON FOR CONSULTATION: Respiratory failure. HISTORY OF PRESENT ILLNESS: Mr. Veliz is a 64-year-old black male with significant COPD, documented ongoing tobacco use, end-stage renal disease with initiation of hemodialysis in October who has previously required intubation and mechanical ventilation. ER records indicates the patient went outside, short of breath and then became unresponsive. EMS was called. He was intubated and initiated on mechanical ventilation. No family members were present in the emergency room to give additional details. PAST MEDICAL HISTORY/PROBLEM LIST: 1. Chronic obstructive pulmonary disease with ongoing tobacco use. 2. End-stage renal disease on hemodialysis, recent hemodialysis management unknown. 3. Hypertension. 4. BPH. 5. Dyslipidemia. 6. Prior thoracotomy for unknown reasons. SOCIAL HISTORY: Ongoing tobacco use as per above. Alcohol/drug use, not currently known. FAMILY HISTORY: Not immediately available for review. REVIEW OF SYSTEMS: Cannot be obtained. PHYSICAL EXAMINATION: General: Reveals a thin black male, receiving sedation, who is on mechanical ventilation. He is also undergoing hemodialysis. He remains on Levophed. Vital Signs: The patient has been hypothermic. Blood pressure 98/52, heart rate 104, respiratory rate 26, oxygen saturation 100%. HEENT: Pupils are equal and reactive. Oropharynx appears clear. Neck: Supple. Chest: Reveals prolonged expiratory phase with coarse rhonchi present. Cardiac Exam: S1-S2. Abdomen: Scaphoid and soft. Extremities: Slightly cool to the touch. LABORATORIES: Chest x-ray reveals 8 faint infiltrates in the left lung with an endotracheal tube in good position. White blood count 9.01, hemoglobin 10.5, platelet count 178,000. Arterial blood gas on presentation emergency room 7.22, pCO2 54, PO2 383, carboxyhemoglobin 4.8, lactate 2.3. Arterial blood gas this morning pH 7.41, pCO2 of 30, PO2 of 153. White blood count 9.01, hemoglobin 10.5 platelet count 178,000, sodium 139, potassium 5.6, chloride 105, bicarbonate 15, anion gap 19, BUN 35, creatinine 5.0. IMPRESSION: A 64-year-old with: 1. Acute hypoxemic respiratory failure. 2. Acute hypercapnic respiratory failure. 3. Chronic obstructive pulmonary disease. 4. Nicotine addiction with ongoing tobacco use. 5. Pneumonia. 6. Shock. 7. End-stage renal disease on hemodialysis. PLAN: 1. Continue full ventilatory support. 2. Collect sputum for culture and sensitivity. 3. Hemodialysis as tolerated. 4. Continue sedation. Will initiate spontaneous breathing trial tomorrow morning. 5. Ongoing counseling about the importance of smoking cessation. Time spent in critical care management 1 hour. cc: MD Johnny Conde MD
--- NOTE | 2019-12-19 19:07 | PROVIDER PROGRESS NOTE ---
Progress Note Chief complaint: intubated HPI: Mr. Veliz is a 64-year-old -Marshall[place] male known to our service who is being treated with hemodialysis at the [facility]. He has a past medical history of chronic kidney disease that required hemodialysis as of October last year, BPH, hypertension, and COPD. According to medical records he was brought in by EMS where in route they had to ambu bag him. On arrival at the emergency department he was intubated. In October 2019 he was admitted for a similar episode of respiratory distress and subsequently intubated then as well. During that admission his dialysis access was found to have a clot and he was to be referred to [facility] for a thrombectomy. He had a right internal jugular vein vas-cath placed on 11/24/2019 and has been going to outpatient hemodialysis since. Past medical history: hypertension,Chronic kidney disease stage five with recent hemodialysis treatment, BPH, COPD Surgical history: AV graft placement left upper extremity in August 2019, thrombectomy in 2018, right internal jugular catheter placement Family history: noncontributory Social history: questionable homelessness. Unable to get reliable transportation. No family has come to bedside. Per records he continues to smoke but denies alcohol or illicit drug use. Allergies: no known drug allergies How medications: amlodipine, symbicort inhaler, albuterol sulfate inhaler, metoprolol, tamsulosin Review of systems: patient currently sedated and mechanically ventilated. Unable to obtain. Physical Exam: temperature 96.1, pulse 109, respirations 22, blood pressure 124/77, O2 sat 100% on 100% FIO2 mechanical ventilation General: a middle-aged -Marshallese male lying in bed intubated and sedated in no acute distress. HEENT: a traumatic, normocephalic, pupil sluggish but reactive, trachea midline. Skin: warm and dry. Flaky dry skin noted to bilateral lower extremities. Neck: supple, 8 cm JVD observed. Cardiovascular: S1S2, regular rate and rhythm. No gallops or murmurs noted. Respiratory: expiratory wheezes anteriorly Abdomen: soft, nondistended, nontender. Bowel sounds hypoactive. : Alcantara in place with denilson urine Extremities: No edema noted. No palpable pulse to the left upper arm graft. Neurological: on sedatives. Labs: WBC 9.01, hemoglobin 10.5, hematocrit 34.2, platelet count 178, sodium 139, potassium 5.6, chloride 105, carbon dioxide 15, BUN 35, creatinine 5.0, calcium 8.3, troponin T was 35 and has trended up to 83. Plasma lactate 1.4. Arterial blood gas pH 7.41, PCO2 is 30, P02 is 153, HCO3 21.4, lactate 1.8. Imaging: Chest x-ray impression infiltrate at the left mid and lower lung zone. Assessment and plan: Chronic kidney disease stage 5D. We will plan for slow Low efficiency hemodialysis at bedsidefor management of volume overload. Goal 4-6 liters UF. Blood pressure. Norepinephrine as needed for hypotension. Fluid volume. Expanded. Hemodialysis in place. Electrolytes and acid base balance. Corrected with hemodialysis. Nutrition. will defer to primary. Mediation review. Will change zosyn to q 8 h. Avoid fentanyl. rg
[2019-12-20] MEDS: ZOSYN 2.25 GM in NS 50 ML IV SCH ×5 (00:06→23:28)
[2019-12-20] MEDS: LEVOPHED 8 MG in D5 1/2 NS 250 ML IV SCH ×2 (01:47→13:05)
[2019-12-20] MEDS: HEPARIN SUBQ SCH ×2 (01:48→14:34)
[2019-12-20] MEDS: DIPRIVAN 1% 1,000 MG/100 ML BOTTLE IV SCH ×6 (01:48→21:23)
[2019-12-20] MEDS: PEPCID IV SCH ×2 (01:48→14:36)
[2019-12-20] MEDS: SOLU-CORTEF IV SCH ×4 (01:48→21:00)
[2019-12-20] MEDS: SODIUM CHLORIDE 0.9% INJ SCH (01:50)
[2019-12-20] MEDS: DUONEB (A & A) INH SCH ×4 (03:25→21:20)
[2019-12-20 05:20] LABS: ALLEN TEST YES; BE -5.7 mmoll (-3.0-3.0); BLOOD TYPE ARTERIAL; HCO3-(ACT) 20.5 mmoll (20.0-26.0); METHB 0.9 % (0.0-1.5); O2(CT) 18.7 mL/dL (15.0-23.0); O2HB 96.6 % (95.0-99.0); PCO2(98.6) 31 mmHg (35-45); PO2(98.6) 108 mmHg (60-100); SAMPLE BLOOD; SAO2 99.8 % (95.0-100.0); SRATE 18 BPM; THB 13.7 g/dL (11.5-17.4); TVOL 650 mL; pH(98.6) 7.38 (7.35-7.45)
[2019-12-20 05:24] LABS: MODALITY VENTILATOR
--- NOTE | 2019-12-20 07:30 | Diag Imaging Result Doc PS360 ---
CHEST-PORTABLE - 12/20/2019 INDICATION: respiratory failure COMPARISON: 12/19/2019 FINDINGS: Support tubes are stable and in good position. The lungs are grossly clear. Heart size is normal. No pneumothorax or pleural effusion. There is probably COPD. IMPRESSION: COPD. No acute disease. Electronically signed by Sherif Kumari 12/20/2019 7:27 AM
--- NOTE | 2019-12-20 08:02 | PROGRESS NOTE ---
DATE: 12/20/2019 SUBJECTIVE: Ms. Veliz is not communicating. The patient is on ventilator. OBJECTIVE: Vital Signs: Noted. At times, blood pressure is low normal. General: The patient is getting dialysis. No fever or chills. No nausea or vomiting. Neck: Supple. No JVD. Lungs: Bibasilar crepitation. Heart: S1 and S2 heard. Abdomen: Soft, globular. Bowel sounds present. Extremities: No cyanosis, clubbing. No acute DVT. GRINDER AND PLATER: The patient is on ventilator, uncooperative for detailed examination. CONSIDERATION: Acute hypoxemic and hypercarbic respiratory failure, chronic obstructive pulmonary disease, pneumonia, end-stage renal disease on hemodialysis. Appreciate Pulmonary, Critical Care, and Nephrology help. Overall prognosis is fair to guarded. Blood gas done this morning showed pH 7.38, pCO2 of 31, PO2 is 108. The patient is on broad-spectrum antibiotics, gastrointestinal and deep venous thrombosis prophylaxis. Overall prognosis is fair to guarded. cc: Johnny Dobbs MD
[2019-12-20] MEDS: PROTONIX IV SCH (08:20)
[2019-12-20] MEDS: BROVANA NEB INH SCH ×2 (09:37→19:15)
[2019-12-20] MEDS ORDERED: BROVANA NEB ONE (09:40)
[2019-12-20] MEDS ORDERED: NS 500 ML IV ONE (12:14)
[2019-12-20] MEDS ORDERED: NS 500 ML ONE (12:21)
--- NOTE | 2019-12-20 14:27 | PROVIDER PROGRESS NOTE ---
Progress Note Subjective: intubated and sedated Objective: temperature 98, pulse 97, respirations 18, blood pressure 88/51, 02 sat 100% on 30% mechanical ventilation. General: a middle-aged -Mexican male lying in bed intubated and sedated in no acute distress. HEENT: a traumatic, normocephalic, pupil sluggish but reactive, trachea midline. Skin: warm and dry. Flaky dry skin noted to bilateral lower extremities. Neck: supple, 6cm JVD observed. Cardiovascular: S1S2, regular rate and rhythm. No gallops or murmurs noted. Respiratory: expiratory wheezes anteriorly, left lobe diminished in comparison to right lobe. Abdomen: soft, nondistended, nontender. Bowel sounds hypoactive. : Alcantara in place with denilson urine Extremities: Minimal edema noted. No palpable pulse to the left upper arm graft. Neurological: on sedatives. Labs: intake 2000, output 6110. Impression: Chronic kidney disease stage 5D. He tolerated a 6L ultrafiltration with SLED yesterday. Based on assessment we will hold off on SLED today and re-evaluate tomorrow. Blood pressure. Norepinephrine in place. Fluid volume. Euvolemic . Electrolytes and acid base balance. Corrected with hemodialysis yesterday. No current labs. Nutrition. will defer to primary. Mediation review. Solucortef started
[2019-12-20] MEDS: SODIUM BICARBONATE 8.4% IV PUSH SCH ×2 (21:00→23:28)
[2019-12-21] MEDS: LEVOPHED 8 MG in D5 1/2 NS 250 ML IV SCH (00:09)
[2019-12-21] MEDS: DIPRIVAN 1% 1,000 MG/100 ML BOTTLE IV SCH ×4 (01:44→12:30)
[2019-12-21] MEDS: SODIUM BICARBONATE 8.4% IV PUSH SCH ×2 (01:45→04:32)
[2019-12-21] MEDS: SOLU-CORTEF IV SCH ×4 (01:45→20:11)
[2019-12-21] MEDS: SODIUM CHLORIDE 0.9% INJ SCH (02:30)
[2019-12-21] MEDS: HEPARIN SUBQ SCH ×2 (02:30→15:33)
[2019-12-21] MEDS: PEPCID IV SCH ×2 (02:30→15:33)
[2019-12-21] MEDS: DUONEB (A & A) INH SCH ×4 (03:20→21:18)
--- NOTE | 2019-12-21 03:23 | PULMONOLOGY PROGRESS NOTE ---
DATE: 12/20/2019 SUBJECTIVE: The patient is sedated. He remains on mechanical ventilation. He continues to require Levophed. OBJECTIVE: Vital Signs: Blood pressure 97/49, heart rate 120, respiratory rate 18, minute ventilation greater than 11. He has been afebrile for the last 24 hours and is bordering on hypothermic. HEENT: Pupils are equal. Oropharynx appears clear but dry. Neck: Supple. Chest: Reveals prolonged expiratory phase. Cardiac: S1, S2. Abdomen: Soft. Extremities: Cool to the touch. LABORATORIES: Arterial blood gas reveals a pH 7.38, pCO2 of 31, PO2 of 108, with a lactate of 3. Culture data reveals no new information. Chest x-ray reveals tubes and lines in good position. IMPRESSION: A 64-year-old with 1. Acute hypoxemic and acute hypercapnic respiratory failure. 2. Chronic obstructive pulmonary disease. 3. Nicotine addiction with ongoing tobacco use. 4. End-stage renal disease on hemodialysis. 5. Pneumonia with elevated minute ventilation. 6. Ongoing septic shock. DISCUSSION: A 64-year-old with problems outlined above. With elevated minute ventilation and ongoing vasopressor requirements, he is not a candidate for weaning. PLAN: 1. Continue ventilatory support. 2. We will augment sodium bicarbonate in an attempt to decrease minute ventilation. 3. Delay weaning until tomorrow, as outlined above. 4. We will relocation counselor patient about the importance of smoking cessation, if he makes it through this ICU course. Time spent in critical care management: 35 minutes cc: MD Johnny Conde MD MTDD
[2019-12-21 04:38] LABS: ALLEN TEST YES; BE 3.4 mmoll (-3.0-3.0); BLOOD TYPE ARTERIAL; HCO3-(ACT) 27.6 mmoll (20.0-26.0); O2(CT) 14.2 mL/dL (15.0-23.0); O2HB 96.8 % (95.0-99.0); PCO2(98.6) 33 mmHg (35-45); PO2(98.6) 146 mmHg (60-100); SAMPLE BLOOD; SAO2 99.3 % (95.0-100.0); SRATE 18 BPM; THB 10.2 g/dL (11.5-17.4); TVOL 650 mL; pH(98.6) 7.51 (7.35-7.45)
[2019-12-21 04:41] LABS: MODALITY VENTILATOR
[2019-12-21] MEDS: ZOSYN 2.25 GM in NS 50 ML IV SCH ×3 (05:24→18:45)
[2019-12-21 06:15] LABS: ALBUMIN 2.8 g/dL (3.5-5.0); CALCIUM 8.8 mg/dL (8.8-10.2); CREATININE 5.3 mg/dL (0.7-1.2); POTASSIUM 3.6 mmol/L (3.5-5.1); TOTAL BILIRUBIN 0.16 mg/dL (0.20-1.00); TOTAL PROTEIN 5.7 g/dL (6.3-8.3)
[2019-12-21] MEDS ORDERED: TIGHT: 0.2 ML/HR FOR DIALYSIS MISC PRN (06:30)
[2019-12-21] MEDS ORDERED: NS 2,000 ML MISC PRN (06:30)
[2019-12-21] MEDS ORDERED: HEPARIN IV PRN (06:30)
--- NOTE | 2019-12-21 07:14 | Diag Imaging Result Doc PS360 ---
EXAM: CHEST-PORTABLE 12/21/2019 HISTORY: respiratory failure TECHNIQUE: AP portable at 0530 COMMENT: There is an endotracheal tube with its tip in the thoracic inlet and an NG tube which passes below the diaphragm. There are postsurgical changes in the right upper lobe and COPD. Overall the appearance the chest has not changed significantly since 12/20/2019. IMPRESSION: Stable chest. Electronically signed by Jamel Velazco 12/21/2019 7:12 AM
[2019-12-21] MEDS: PROTONIX IV SCH (09:55)
[2019-12-21 15:18] LABS: ALLEN TEST YES; BE 7.4 mmoll (-3.0-3.0); BLOOD TYPE ARTERIAL; HCO3-(ACT) 30.6 mmoll (20.0-26.0); METHB 1.4 % (0.0-1.5); MODALITY VENTILATOR; O2(CT) 17.7 mL/dL (15.0-23.0); O2HB 94.8 % (95.0-99.0); PCO2(98.6) 40 mmHg (35-45); PO2(98.6) 90 mmHg (60-100); SAMPLE BLOOD; SAO2 97.9 % (95.0-100.0); THB 13.2 g/dL (11.5-17.4)
--- NOTE | 2019-12-21 15:19 | PROVIDER PROGRESS NOTE ---
Progress Note Subjective: intubated and sedated Objective: temperature 97.8, pulse 94, respirations 18, blood pressure 88/46, O2 sat 100% on 30% fiO2 mechanical ventilation General: a middle-aged -[place]ine[place] male lying in bed intubated and sedated in no acute distress. HEENT: atraumatic, normocephalic, pupil sluggish but reactive, trachea midline. Skin: warm and dry. Flaky dry skin noted to bilateral lower extremities. Neck: supple, 6cm JVD observed with no hepatojugular reflux. Cardiovascular: S1S2, regular rate and rhythm. No gallops or murmurs noted. Respiratory: coarse inspiratory and expiratory noises anteriorly. Abdomen: soft, nondistended, nontender. Bowel sounds hypoactive. : Alcantara in place with denilson urine Extremities: Minimal edema noted. No palpable pulse to the left upper arm graft. Neurological: on sedatives. Labs: intake 1863, output 55. Sodium 143, potassium 3.6, chloride 100, carbon dioxide 23, BUN 46, creatinine 5.3. Impression: Chronic kidney disease stage 5D. We will attempt intermediate hemodialysis today at bedside with a 3k bath to last post dialysis weight. Renal ultrasound ordered per standard orders. Blood pressure. Norepinephrine in place. Fluid volume. Euvolemic. Electrolytes and acid base balance. Corrected with hemodialysis. Nutrition. will defer to primary. Mediation review. No changes.
--- NOTE | 2019-12-21 16:10 | Diag Imaging Result Doc PS360 ---
EXAM: US RENAL 2 (RETROPER) COMPLETE HISTORY: decreased renal function TECHNIQUE: Renal ultrasound COMPARISON: None. FINDINGS: The right kidney measures 8.6 x 3.7 x 4.2 cm. The left kidney measures 8.4 x 4.3 x 4.8 cm. Increased renal echotexture as well as cortical thinning. There are small bilateral scattered renal cysts. No hydronephrosis. IMPRESSION: Increased renal echotexture consistent with medical renal disease. Electronically signed by Holland Joyner 12/21/2019 4:07 PM
--- NOTE | 2019-12-21 20:10 | PROGRESS NOTE ---
DATE: 12/21/2019 SUBJECTIVE: I evaluated Mr. Veliz in the morning. Patient was intubated, In his usual state of health, not communicating. No history of high-grade fever or chills. Yesterday, his blood pressure was low. I gave him a fluid bolus and the blood pressure improved. Patient was on pressor support. No nausea or vomiting. His history part is limited. OBJECTIVE: Vital signs: Vital signs noted. Patient is tachycardic, tachypneic. Blood pressure 82/48, pulse 95, respirations 18. Neck: Supple. No JVD. Lungs: Decreased air entry both bases. CV: S1 and S2 heard. Abdomen: Soft, nontender. Bowel sounds present. TASSEL CLIPPER: Patient is on ventilator, not communicating. LABORATORY DATA DONE TODAY: Blood gas: PH 7.5, pCO2 40, pO2 was 90. Electrolytes: Sodium 143, potassium 3.6, chloride 100, BUN 46, potassium 5.3. Renal ultrasound results reviewed. CONSIDERATION: 1. Respiratory failure, pneumonia, possible sepsis. 2. End-stage renal disease, on hemodialysis. 3. The patient is on intravenous antibiotics, supportive care, which will continue. Continue rest of the treatment. 4. Overall prognosis fair to guarded. 5. I appreciate Pulmonary and Nephrology help managing the patient. cc: Johnny Dobbs MD
[2019-12-21] MEDS: BROVANA NEB INH SCH (21:19)
--- NOTE | 2019-12-21 21:37 | PULMONOLOGY PROGRESS NOTE ---
DATE: 12/21/2019 SUBJECTIVE: The patient was evaluated on dialysis. He was placed on pressure support of 5. His propofol was decreased. He remained on sedation until dialysis was completed. Arterial blood gas performed at the completion of dialysis revealed a pH of 7.50, pCO2 of 40, PO2 of 90 with a normal lactate. The patient was successfully extubated. He was initially tachycardic, but his heart rate has decreased into the 110 range. OBJECTIVE: Vital Signs: The patient has been afebrile for the last 24 hours. Blood pressure 98/43, heart rate 110, respiratory rate 24, oxygen saturation 98%. HEENT: Pupils are equal and reactive. Oropharynx appears clear. Neck: Supple. Chest: Reveals prolonged expiratory phase. Cardiac: S1, S2. Abdomen: Soft. Extremities: Without edema. LABORATORIES: Microbiology reveals no new culture data. Chest x-ray reveals no new changes. IMPRESSION: A 64-year-old with: 1. Acute hypoxemic and acute hypercapnic respiratory failure. 2. Chronic obstructive pulmonary disease. 3. Nicotine addiction with ongoing tobacco use. 4. Septic shock on presentation. He is being weaned off the Levophed. 5. Presumptive pneumonia. PLAN: 1. Extubation this afternoon. 2. Continue antibiotics. 3. Encourage patient to discontinue tobacco use. TIME: Spent in critical care management, 30+ minutes. cc: MD Johnny Conde MD
[2019-12-22] MEDS: ZOSYN 2.25 GM in NS 50 ML IV SCH ×5 (00:55→23:15)
[2019-12-22] MEDS: SOLU-CORTEF IV SCH (02:59)
[2019-12-22] MEDS: SODIUM CHLORIDE 0.9% INJ SCH ×2 (03:00→15:44)
[2019-12-22] MEDS: PEPCID IV SCH ×2 (03:00→15:44)
[2019-12-22] MEDS: HEPARIN SUBQ SCH ×2 (03:00→13:28)
[2019-12-22] MEDS: DUONEB (A & A) INH SCH ×4 (03:28→21:21)
--- NOTE | 2019-12-22 03:58 | Extremity Venous Study ---
PROCEDURE NAME: Venous U/S Bilateral Legs - 12/19/2019 REFERRING PHYSICIAN: Dr. Wong. INTERPRETING PHYSICIAN: Dr. Martin Kent. MASTER CONTROL OPERATOR: Horacio. INDICATIONS: The patient has elevated D-dimer, is unresponsive on a ventilator. FINDINGS: Bilateral lower extremity venous images accomplished. The portable study was done. The common femoral, superficial femoral, deep femoral, popliteal, posterior tibial, peroneal, greater saphenous veins are identified proximally. Doppler is used to evaluate the veins for spontaneity and phasicity, distal augmentation. All veins identified are compressible. INTERPRETATION: No evidence of deep or superficial venous thrombosis in any of the lower extremity veins identified. cc: MD Johnny Giraldo MD
[2019-12-22 05:05] LABS: ALLEN TEST YES; BE 2.3 mmoll (-3.0-3.0); BLOOD TYPE ARTERIAL; HCO3-(ACT) 26.5 mmoll (20.0-26.0); METHB 1.5 % (0.0-1.5); O2(CT) 14.6 mL/dL (15.0-23.0); PCO2(98.6) 43 mmHg (35-45); PO2(98.6) 58 mmHg (60-100); SAMPLE BLOOD; SAO2 91.9 % (95.0-100.0); THB 11.8 g/dL (11.5-17.4); pH(98.6) 7.41 (7.35-7.45)
[2019-12-22 05:09] LABS: MODALITY ROOM AIR
[2019-12-22 05:24] LABS: BASO# 0.02 X1000 (0.0-0.2); BASO% 0.3 % (0.0-0.8); EOS# 0.01 X1000 (0.0-0.7); EOS% 0.1 % (0.0-10.0); HEMATOCRIT 34.1 % (42.0-52.0); HEMOGLOBIN 11.1 g/dL (14.0-18.0); IMM GRAN# 0.02 X1000 (0.0-0.04); IMM GRAN% 0.3 % (0.0-0.5); LYMPH# 0.65 X1000 (1.2-3.4); LYMPH% 8.7 % (20.5-51.1); MCH 26.3 PG (27-31); MCHC 32.6 g/dL (33-37); MCV 80.8 FL (81-99); MONO# 0.49 X1000 (0.11-0.59); MONO% 6.5 % (1.7-9.3); MPV 11.2 FL (7.4-10.4); NEUT# 6.31 X1000 (1.4-6.5); NEUT% 84.1 % (42.2-75.2); PLT 162 X1000 (130-400); RBC 4.22 XMIL (4.7-6.1); RDW 16.8 % (11.5-14.5)
[2019-12-22 05:49] LABS: ALB/GLOB RATIO 1.2; ALBUMIN 3.6 g/dL (3.5-5.0); CALCIUM 9.3 mg/dL (8.8-10.2); CREATININE 4.4 mg/dL (0.7-1.2); TOTAL BILIRUBIN 0.29 mg/dL (0.20-1.00); TOTAL PROTEIN 6.6 g/dL (6.3-8.3)
--- NOTE | 2019-12-22 06:43 | Diag Imaging Result Doc PS360 ---
EXAM: CHEST-PORTABLE HISTORY: respiratory failure TECHNIQUE: Single view COMPARISON: 12/21/2019 FINDINGS: The endotracheal tube has been removed. The lungs remain well expanded and clear. There are right hilar and apical surgical clips and sutures. No cardiomegaly. No pulmonary edema. There may be a tiny right pleural effusion. No change in the nasogastric tube. IMPRESSION: Mild interval improvement Electronically signed by Holland Joyner 12/22/2019 6:41 AM
--- NOTE | 2019-12-22 08:56 | PROVIDER PROGRESS NOTE ---
Progress Note Pulmonary additional note: I have seen and examined the case, reviewed the EMR, labs, latest images and other medical teams notes. Also reviewed the TELETYPESETTER notes and signed necessary form(s). I have noted changes in condition from yesterday. Please see also signed progress sheet. I reviewed the medications in summary list. I reviewed the orders of the patient. Acute Respiratory failure. COPD with continued tobacco use, end-stage renal disease on hemodialysis, extubated . I checked Oxygen settings and titrated to patient needs per clinical protocols and watched the patient responses. I titrated vasopressors to patients needs per clinical protocols and monitored patient responses. I Discontinued Diprivan from the orders (was not running) Since yesterday, Prognosis: Guarded for now. I reviewed latest notes from Tyler Mcguire and Dr. Staples. I did the evaluation exam and management on the other sheet and the CARVER AND CHECKERER SPECIALS did the scribing only. I asked hospital staff pharmacist about condition changes and if they have any needs in regard to today conditions. I spent 33 minutes in this process
--- NOTE | 2019-12-22 08:59 | PROGRESS NOTE ---
DATE: 12/22/2019 SUBJECTIVE: Mr. Veliz is doing better. Patient extubated yesterday. He is breathing well. Mild cough, no expectoration. The patient claims to be hungry and wants to eat. No typical chest pain or palpitations. Denied any diarrhea. OBJECTIVE: Vital Signs: His vital signs are noted. At times, the patient is tachycardic. Neck: Neck is supple. No JVD. Lungs: Decreased air entry at both bases. Cardiovascular: S1 and S2. Tachycardia. Abdomen: Soft, globular. Bowel sounds present. Central Nervous System: Alert, awake, able to move all 4 limbs. LABORATORY DATA: Noted. PLAN: 1. I am going to discontinue NG tube. 2. Continue IV antibiotics. 3. We will do bedside swallowing evaluation. If patient passes, will start his clear to full liquid diet. 4. I am going to resume his home medicine. Overall plan discussed with the patient and he is in agreement. his. ASSESSMENT: 1. Acute hypoxemic and hypercarbic respiratory failure. 2. Pneumonia. 3. Sepsis. 4. Chronic kidney disease on hemodialysis. 5. Hypertension. 6. BPH. cc: Johnny Dobbs MD
[2019-12-22] MEDS: PROTONIX IV SCH (09:35)
[2019-12-22] MEDS: TOPROL XL PO SCH (09:35)
[2019-12-22] MEDS: FLOMAX PO SCH (09:35)
[2019-12-22] MEDS: NORVASC PO SCH (09:35)
[2019-12-22] MEDS: SYMBICORT 160/4.5 MICROGM INHALER INH SCH ×2 (10:07→21:21)
[2019-12-22] MEDS: BROVANA NEB INH SCH ×2 (10:07→21:21)
--- NOTE | 2019-12-22 18:04 | NEPHROLOGY PROGRESS NOTE ---
DATE: 12/22/2019 SUBJECTIVE: He is off the ventilator and on nasal cannula. Denies shortness of breath. Hungry. OBJECTIVE: Vital Signs: Blood pressure 128/67, heart rate 103, respirations 16, afebrile. Generally: Thin elderly black male, no distress. Skin: Warm and dry. Conjunctivae are pink. Pupils are equal. Neck: Neck veins are not distended. Heart: Regular without gallops. Lungs: Equal without crackles or wheezes. Abdomen: Soft, nontender. Bowel sounds present. Extremities: No edema, clubbing or cyanosis. IMPRESSION: 1. Chronic kidney disease 5D. He had his routine dialysis yesterday. Next treatment tomorrow. 2. Electrolytes/acid base/anemia/hypertension all in target. Okay to feed from my perspective. cc: MD Johnny Cramer MD
[2019-12-23] MEDS: HEPARIN SUBQ SCH ×2 (01:25→15:07)
[2019-12-23] MEDS: PEPCID IV SCH ×2 (01:27→15:07)
[2019-12-23] MEDS: DUONEB (A & A) INH SCH ×2 (03:00→12:22)
[2019-12-23 04:57] LABS: ALLEN TEST YES; BE -0.1 mmoll (-3.0-3.0); BLOOD TYPE ARTERIAL; HCO3-(ACT) 24.7 mmoll (20.0-26.0); METHB 1.2 % (0.0-1.5); O2(CT) 13.5 mL/dL (15.0-23.0); PCO2(98.6) 44 mmHg (35-45); PO2(98.6) 60 mmHg (60-100); SAMPLE BLOOD; SAO2 92.3 % (95.0-100.0); THB 10.7 g/dL (11.5-17.4); pH(98.6) 7.37 (7.35-7.45)
[2019-12-23 04:58] LABS: MODALITY ROOM AIR; O2HB 89.2 % (95.0-99.0)
[2019-12-23] MEDS: ZOSYN 2.25 GM in NS 50 ML IV SCH ×3 (05:35→17:22)
[2019-12-23 06:26] LABS: ALB/GLOB RATIO 1.1; ALBUMIN 3.3 g/dL (3.5-5.0); CALCIUM 9.1 mg/dL (8.8-10.2); POTASSIUM 3.4 mmol/L (3.5-5.1); TOTAL BILIRUBIN 0.23 mg/dL (0.20-1.00); TOTAL PROTEIN 6.2 g/dL (6.3-8.3)
[2019-12-23] MEDS ORDERED: NS 2,000 ML MISC PRN (07:04)
[2019-12-23] MEDS ORDERED: HEPARIN IV PRN (07:04)
--- NOTE | 2019-12-23 07:54 | Diag Imaging Result Doc PS360 ---
CHEST-PORTABLE - 12/23/2019 INDICATION: respiratory failure COMPARISON: 12/22/2019 FINDINGS: Stable surgical clips at the right hilum and right lung apex. No infiltrates or edema. Heart size and pulmonary vascularity is grossly normal. No pneumothorax or pleural effusion. The nasogastric tube has been removed. IMPRESSION: No acute disease. Electronically signed by Sherif Kumari 12/23/2019 7:52 AM
--- NOTE | 2019-12-23 12:04 | PROVIDER PROGRESS NOTE ---
Progress Note Pulmonary additional note: I have seen and examined the case, reviewed the EMR, labs, latest images and other medical teams notes. Also reviewed the ROOM SERVICE SERVER notes and signed necessary form(s). I have noted changes in condition from yesterday. Please see also signed progress sheet. I reviewed the medications in summary list. I reviewed the orders of the patient. Acute Respiratory failure. COPD with continued tobacco use, end-stage renal disease on hemodialysis, extubated . I checked Oxygen settings and titrated to patient needs per clinical protocols and watched the patient responses. I titrated vasopressors to patients needs per clinical protocols and monitored patient responses. (now levophyd is off). Since yesterday, he is doing ok with no significant new development Prognosis: Guarded for now. I reviewed latest notes from Dr. Dobbs, and Dr. Scott. I did the evaluation exam and management on the other sheet and the BIOLOGY INTERN did the scribing only. I asked residential treatment staff about condition changes and if they have any needs in regard to today conditions. I spent 30 minutes in this process
[2019-12-23] MEDS: BROVANA NEB INH SCH ×2 (12:22→22:54)
[2019-12-23] MEDS: SYMBICORT 160/4.5 MICROGM INHALER INH SCH ×2 (12:23→22:54)
[2019-12-23] MEDS: TOPROL XL PO SCH (13:13)
[2019-12-23] MEDS: FLOMAX PO SCH (13:13)
[2019-12-23] MEDS: NORVASC PO SCH (13:14)
[2019-12-23] MEDS: SODIUM CHLORIDE 0.9% INJ SCH ×2 (13:16→15:07)
[2019-12-23] MEDS: PROTONIX IV SCH (13:16)
--- NOTE | 2019-12-23 15:14 | PROGRESS NOTE ---
DATE: 12/23/2019 64-year-old -[place]ong[place] male was seen today for Dr. Dbobs. He was admitted on 12/19/2019 for acute respiratory failure, altered mental status. Dr. Staples was consulted as well as Dr. Scott. He just returned from dialysis. He was off ventilator support, off vasopressors. He wants to go home, but is confused. He has a Alcantara catheter that was seen. REVIEW OF SYSTEMS: No complaints. PAST MEDICAL HISTORY: Reviewed. PAST SURGICAL HISTORY: Reviewed. MEDICINES: Reviewed. ALLERGIES: Not known. OBJECTIVE: Temp is 98.2 degrees, tachycardic. Blood pressure is 144/89, 126 pounds.HEENT: Within normal limits. Neck: Supple. Chest: Bilateral air entry. Heart: Sounds are regular, tachycardic. Belly: Soft, nontender. Alcantara was placed. No obvious neurological deficits. INVESTIGATIONS: White cell count 7.5, hematocrit 34, platelets 162,000, ABG pH is 7.37, pCO2 44, PO2 60, on room air. Sodium 140, potassium 3.4, BUN 59, creatinine 6.0. LFTs were normal. Microbiology: Blood cultures, urine cultures are negative. Influenza screen was negative. Sputum cultures 3+. ASSESSMENT AND PLAN: 1. Acute respiratory failure with COPD, history of right upper lobectomy. Chest x-ray was stable, off ventilator support. PO2 on room air is excellent. Currently he is on bronchodilators with DuoNeb and Brovana that will cause the tachycardia. Let us DC the DuoNeb. Keep on Brovana. 2. Symbicort. 3. IV Zosyn. 4. Deep vein thrombosis prophylaxis with heparin 5000 subcutaneously q. 12. 5. GI prophylaxis, currently on Pepcid and Protonix. DC the IV Pepcid. 6. BPH, on Flomax. Discontinue Alcantara. He has ultrasound bilateral medical renal disease. 7. Hypertension. He is on amlodipine and metoprolol. End-stage renal disease on dialysis to the AV graft on the left side. Slowly advance the diet as tolerated. 8. Level of documentation 35 minutes. cc: MD Johnny Galvez MD [facility]
--- NOTE | 2019-12-23 19:54 | NEPHROLOGY PROGRESS NOTE ---
DATE: 12/23/2019 SUBJECTIVE: He is on dialysis, on room air. No complaints. OBJECTIVE: Blood pressure 144/89, heart rate 109, respirations 22. Afebrile. Generally, no acute distress. Skin is warm and dry. Neck veins are not distended. Heart is regular. No gallops. Lungs are equal. No crackles. Abdomen is soft. Extremities: No edema. IMPRESSION AND PLAN: Chronic kidney disease stage 5D. Continue routine dialysis prescription as ordered. Electrolytes/acid base/anemia/hypertension all in target. cc: MD Johnny Cramer MD
[2019-12-24] MEDS: ZOSYN 2.25 GM in NS 50 ML IV SCH ×4 (00:26→18:17)
[2019-12-24] MEDS: HEPARIN SUBQ SCH ×2 (02:16→13:43)
[2019-12-24] MEDS: PEPCID IV SCH ×2 (02:17→13:43)
[2019-12-24 03:56] LABS: ALLEN TEST YES; BE 4.9 mmoll (-3.0-3.0); BLOOD TYPE ARTERIAL; HCO3-(ACT) 28.5 mmoll (20.0-26.0); METHB 0.8 % (0.0-1.5); O2(CT) 13.7 mL/dL (15.0-23.0); PCO2(98.6) 45 mmHg (35-45); PO2(98.6) 50 mmHg (60-100); SAMPLE BLOOD; SAO2 90.4 % (95.0-100.0); THB 11.2 g/dL (11.5-17.4); pH(98.6) 7.43 (7.35-7.45)
[2019-12-24 04:10] LABS: MODALITY ROOM AIR; O2HB 87.1 % (95.0-99.0)
[2019-12-24 05:15] LABS: ALBUMIN 3.1 g/dL (3.5-5.0); CREATININE 4.2 mg/dL (0.7-1.2); POTASSIUM 3.8 mmol/L (3.5-5.1); TOTAL BILIRUBIN 0.26 mg/dL (0.20-1.00); TOTAL PROTEIN 6.1 g/dL (6.3-8.3)
--- NOTE | 2019-12-24 07:29 | Diag Imaging Result Doc PS360 ---
CHEST-PORTABLE - 12/24/2019 INDICATION: respiratory failure COMPARISON: 12/23/2019 FINDINGS: Stable surgical changes to the right lung. Stable COPD. No infiltrates. Heart size is normal. IMPRESSION: No change from prior. Electronically signed by Sherif Kumari 12/24/2019 7:26 AM
[2019-12-24] MEDS: BROVANA NEB INH SCH ×3 (08:15→19:29)
[2019-12-24] MEDS: SYMBICORT 160/4.5 MICROGM INHALER INH SCH ×3 (08:17→20:25)
[2019-12-24] MEDS: PROTONIX IV SCH (09:23)
[2019-12-24] MEDS: NORVASC PO SCH (09:23)
[2019-12-24] MEDS: FLOMAX PO SCH (09:23)
[2019-12-24] MEDS: TOPROL XL PO SCH (09:23)
[2019-12-24] MEDS: SODIUM CHLORIDE 0.9% INJ SCH (09:28)
--- NOTE | 2019-12-24 14:34 | PROGRESS NOTE ---
DATE: 12/24/2019 SUBJECTIVE: The patient is off the ventilator. He moved out of the ICU. He had dialysis yesterday. He is sitting out of the bed. He is anxious to go home. He is confused. REVIEW OF SYSTEMS: None reported. PHYSICAL EXAMINATION: Vital Signs: Temperature is 98.4 degrees, pulse 102, blood pressure is 157/78, saturating 95% on room air. Weight is 128 pounds. HEENT: Within normal limits. Neck: Supple. Chest: Bilateral air entry. Heart: Heart sounds are regular. Extremities: He has AV graft in the left arm. Abdomen: Belly is soft, nontender. Neurologic: Nonfocal. IMAGING AND LABORATORY DATA: ABG on room air: PH is 7.43, pCO2 of 45, PO2 of 50 on room air. Sodium 137, potassium 3.8, BUN 23, creatinine 4.2. LFTs were normal. Blood cultures, sputum cultures, urine cultures were negative. Chest x-ray: Stable surgical changes in the right upper lobe, COPD, no infiltrates. ASSESSMENT AND PLAN: 1. Acute respiratory failure with chronic obstructive pulmonary disease with prior history of right upper lobectomy. Off ventilator support, PO2 of 50. Continue on bronchodilators, like Brovana and Symbicort, intravenous Zosyn. 2. Deep vein thrombosis prophylaxis with subcutaneous heparin. 3. Gastrointestinal prophylaxis, on intravenous Protonix. 4. Benign prostatic hypertrophy, on Flomax. Discontinue Alcantara. 5. Hypertension is stable. 6. Dialysis as per Dr. Aj tomorrow. LEVEL OF DOCUMENTATION: 25 minutes. cc: MD Johnny Galvez MD
[2019-12-24] MEDS ORDERED: BROVANA NEB ONE (19:38)
[2019-12-25] MEDS: ZOSYN 2.25 GM in NS 50 ML IV SCH ×5 (01:19→23:22)
[2019-12-25] MEDS: HEPARIN SUBQ SCH ×2 (02:41→13:34)
[2019-12-25] MEDS: PEPCID IV SCH ×2 (02:41→13:34)
[2019-12-25 03:49] LABS: ALLEN TEST YES; BE -0.3 mmoll (-3.0-3.0); BLOOD TYPE ARTERIAL; HCO3-(ACT) 24.6 mmoll (20.0-26.0); METHB 1.1 % (0.0-1.5); O2(CT) 13.9 mL/dL (15.0-23.0); O2HB 94.4 % (95.0-99.0); PCO2(98.6) 37 mmHg (35-45); PO2(98.6) 71 mmHg (60-100); SAMPLE BLOOD; SAO2 97.9 % (95.0-100.0); THB 10.4 g/dL (11.5-17.4); pH(98.6) 7.42 (7.35-7.45)
[2019-12-25 03:50] LABS: MODALITY ROOM AIR
[2019-12-25 06:49] LABS: ALBUMIN 2.7 g/dL (3.5-5.0); CALCIUM 8.4 mg/dL (8.8-10.2); POTASSIUM 3.8 mmol/L (3.5-5.1); TOTAL BILIRUBIN 0.22 mg/dL (0.20-1.00); TOTAL PROTEIN 5.4 g/dL (6.3-8.3)
[2019-12-25 07:04] LABS: CREATININE 5.5 mg/dL (0.7-1.2)
--- NOTE | 2019-12-25 07:11 | PROGRESS NOTE ---
DATE: 12/25/2019 SUBJECTIVE: Mr. Veliz is doing fair. The patient does have mild cough. No expectoration. No high-grade fever or chills. Denied any typical chest pain or palpitations. Denied any nausea or vomiting. Oral intake is fair. OBJECTIVE: Vital Signs: Noted. Neck: Supple. No JVD. Lungs: Bilateral good air entry present. Occasional wheezing. CVS: S1 and S2 heard. Abdomen: Soft, nontender. Bowel sounds present. 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 IMAGING AND LABORATORY DATA: Today, blood gas shows pH 7.42, pCO2 of 37, PO2 of 71. This was done on room air. Electrolytes done yesterday showed BUN 23, creatinine 4.2, potassium 3.8. Chest x-ray done yesterday noted. Overall, the patient seems to be doing better. I am going to ambulate the patient in the room and hallway. Encourage the patient to quit smoking. Continue dialysis as per Dr. Scott. Smoking cessation. Follow up with me in a week. If the patient continues to do well, I am planning to discharge the patient home soon. cc: Johnny Dobbs MD
--- NOTE | 2019-12-25 07:34 | Diag Imaging Result Doc PS360 ---
EXAM: CHEST-PORTABLE INDICATION: respiratory failure TECHNIQUE: One view COMPARISON: 12/24/2019 FINDINGS: Pulmonary emphysema is again identified. Postsurgical changes associated with the right upper lung zone are again noted. There are fibrotic changes in the right upper lobe as well as the right lung base. No new consolidation is appreciated. Cardiac silhouette is stable. IMPRESSION: Essentially stable chest. Electronically signed by Roby Munoz 12/25/2019 7:32 AM
[2019-12-25] MEDS ORDERED: BROVANA NEB ONE ×2 (07:50)
[2019-12-25] MEDS: SYMBICORT 160/4.5 MICROGM INHALER INH SCH ×2 (07:58→19:20)
[2019-12-25] MEDS: BROVANA NEB INH SCH ×2 (07:58→19:20)
[2019-12-25] MEDS: NORVASC PO SCH (10:50)
[2019-12-25] MEDS: FLOMAX PO SCH (10:50)
[2019-12-25] MEDS: PROTONIX IV SCH (10:50)
[2019-12-25] MEDS: TOPROL XL PO SCH (10:50)
[2019-12-25] MEDS: SODIUM CHLORIDE 0.9% INJ SCH (13:34)
--- NOTE | 2019-12-25 14:38 | PROVIDER PROGRESS NOTE ---
Progress Note Subjective: he has no complaints. He is smiling and sitting up in the bed Objective: temperature 98.0, pulse 88, respirations 16, blood pressure 122/57, 02 sat 97% on room air. General: a middle-aged -[place] male lying in bed in no acute distress. HEENT: atraumatic, normocephalic, pupils equal and reactive, trachea midline. Skin: warm and dry. Neck: supple, no JVd Cardiovascular: S1S2, regular rate and rhythm. No gallops or murmurs noted. Respiratory: clear anteriorly with equal air entry Abdomen: soft, nondistended, nontender. Bowel sounds active. : non-inspected Extremities: No edema, clubbing, or cyanosis. No palpable pulse to the left upper arm graft. Neurological: alert, oriented to person and place. Labs: sodium 126, potassium 3.8, chloride 90, carbon dioxide 22, anion gap 14, BUN 28, creatinine 5.5, albumin 2.7. Intake 300, output zero. Impression: Chronic kidney disease stage 5D. He will receive his hemodialysis treatment tomorrow. He has no uremic complaints. No changes at this time. Blood pressure. In target. Fluid volume. Euvolemic. Anemia. Stable on last labs Electrolytes and acid base balance. Hyponatremia. Focus on water restriction. Nutrition. Adequate. Mediation review. No changes.
[2019-12-25] MEDS: NICODERM PATCH TD SCH (15:32)
--- NOTE | 2019-12-25 22:12 | PULMONOLOGY PROGRESS NOTE ---
DATE: 12/25/2019 SUBJECTIVE: The patient is awake, alert, and conversant. He reports his breathing has significantly improved. He has been transitioned to room air. OBJECTIVE: Vital Signs: The patient has been afebrile for the last 24 hours. Blood pressure 138/75, heart rate 84, respiratory rate 18, oxygen saturation 100% on room air. HEENT: Pupils are equal and reactive. Oropharynx appears clear. Neck: Supple. Chest: Reveals prolonged expiratory phase with minimal wheeze. Cardiac: S1, S2. Abdomen: Soft. Extremities: Without edema. LABORATORIES: Arterial blood gas reveals a pH of 7.42, pCO2 of 37, pO2 of 71 on room air. Sodium 126, potassium 3.8, chloride 90, bicarbonate 22, BUN 28, creatinine 5.5. IMAGING: Chest x-ray reveals hyperinflation, postsurgical changes on the right with scarring. No evidence of active disease. IMPRESSION: A 64-year-old with: 1. Acute hypoxemic respiratory failure, which is resolving. 2. Chronic obstructive pulmonary disease exacerbation. 3. Nicotine addiction, with ongoing tobacco use. 4. Pneumonia, which has been adequately treated. 5. Chronic renal disease. RECOMMENDATIONS: 1. Discontinue daily chest x-rays and arterial blood gases. 2. From a pulmonary standpoint, he could be discharged home soon and discontinuation of antibiotics. 3. The patient was strongly encouraged to discontinue tobacco use. cc: MD Johnny Conde MD
[2019-12-26] MEDS: HEPARIN SUBQ SCH ×2 (02:08→14:41)
[2019-12-26] MEDS: PEPCID IV SCH ×2 (02:09→14:41)
[2019-12-26] MEDS: ZOSYN 2.25 GM in NS 50 ML IV SCH ×2 (05:14→12:04)
[2019-12-26] MEDS ORDERED: TIGHT: 0.2 ML/HR FOR DIALYSIS MISC PRN (06:16)
[2019-12-26] MEDS ORDERED: HEPARIN IV PRN (06:16)
[2019-12-26] MEDS ORDERED: NS 2,000 ML MISC PRN (06:16)
--- NOTE | 2019-12-26 06:58 | PROGRESS NOTE ---
DATE: 12/26/2019 SUBJECTIVE: Mr. Veliz is doing better. He denied any nausea or vomiting. Oral intake is fair. No diarrhea. The patient is scheduled to have dialysis today. No high-grade fever or chills. OBJECTIVE: Vital Signs: Stable. Neck: Supple. No JVD. Lungs: A few basilar crepitations. CVS: S1 and S2 heard. Abdomen: Soft, nontender. Bowel sounds present. 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 ASSESSMENT AND PLAN: Patient admitted with: 1. Respiratory failure, status post mechanical ventilation. 2. Chronic obstructive pulmonary disease. 3. End-stage renal disease, on hemodialysis. 4. Hypertension. 5. Tobacco abuse. Overall, the patient is doing better. I had a lengthy discussion with the patient about smoking cessation. The plan is to discharge the patient home after dialysis. Follow up with me in a week's time. In case of more distress, call us back or go to the emergency room. cc: Johnny Dobbs MD
[2019-12-26] MEDS: SYMBICORT 160/4.5 MICROGM INHALER INH SCH (07:40)
[2019-12-26] MEDS: BROVANA NEB INH SCH (07:40)
[2019-12-26] MEDS: PROTONIX IV SCH (10:09)
[2019-12-26] MEDS: TOPROL XL PO SCH (10:13)
[2019-12-26] MEDS: FLOMAX PO SCH (10:13)
[2019-12-26] MEDS: NORVASC PO SCH (10:13)
[2019-12-26] MEDS: NICODERM PATCH TD SCH (10:13)
--- NOTE | 2019-12-26 13:18 | PROVIDER PROGRESS NOTE ---
Progress Note Subjective: He voices no complaints and is sitting up eating breakfast. Objective: temperature 98.3, pulse 91, respirations 22, blood pressure 144/80, 02 sat 100% on room air. General: a middle-aged -[place] male lying in bed in no acute distress. HEENT: atraumatic, normocephalic, pupils equal and reactive, trachea midline. Skin: warm and dry. Neck: supple, no JVD Cardiovascular: S1S2, regular rate and rhythm. No gallops or murmurs noted. Respiratory: clear anteriorly with equal air entry Abdomen: soft, nondistended, nontender. Bowel sounds active. : non-inspected Extremities: No edema, clubbing, or cyanosis. No palpable pulse to the left upper arm graft. Doppler pulse found. Neurological: alert, oriented to person and place. Labs: intake 560, output 325 Impression: Chronic kidney disease stage 5D. See below. Blood pressure. In target. Fluid volume. Euvolemic. Anemia. Stable on last labs Electrolytes and acid base balance. Stable. Nutrition. Adequate. Mediation review. No changes. Access thrombosis. He will not be able to dialyze today. We will arrange for him to go to [facility] tomorrow. alessandro
[2019-12-26 13:46] VITALS: BP 131/83
--- NOTE | 2020-01-31 13:37 | DISCHARGE SUMMARY ---
ADMISSION DATE: 12/19/2019 DISCHARGE DATE: 12/26/2019 FINAL DISCHARGE DIAGNOSES: 1. Acute hypoxemic respiratory failure status post intubation and mechanical ventilation. The patient improved. 2. Chronic obstructive pulmonary disease exacerbation. 3. Pneumonia. 4. Chronic kidney disease stage 5 on hemodialysis. 5. Hyperlipidemia. HOSPITAL COURSE: Mr. Veliz is a 64-year-old, gentleman admitted with shortness of breath. The patient was in respiratory distress. They had to bag the patient in the field. The patient intubated in the emergency room. Admitted to ICU. The patient was treated with IV antibiotics, steroids, pulmonary toilet. His clinical condition gradually improved. Patient extubated. The patient received dialysis. Overall the patient's clinical condition improved. The patient was supposed to have dialysis last day but fistula was not working. Dr. Scott is going to arrange for outpatient treatment and fixing the fistula at [place]. The patient was eager to go home. His overall clinical condition, stable and we decided to discharge patient home. The rest of the information from history and physical. LAB DATA: PH 7.42, pCO2 of 37, PO2 71. This was done on December 25 on room air. His electrolytes last done on December 25 sodium 126, potassium 3.8. Chloride 19, CO2 22, BUN 28, creatinine 5.5. CBC: Hemoglobin 11.1, hematocrit 34.1, WBC count 7.5. Platelet count 162,000. Blood culture was no growth. Urine culture no growth. The patient's sputum result also reviewed. It was normal joselyn. DISPOSITION: Overall, patient received maximum benefit of hospitalization. DISCHARGE INSTRUCTIONS: Advised patient to come for followup in a week. Continue dialysis as per Dr. Scott. DISCHARGE CONDITION: Overall discharge condition satisfactory. I encouraged patient to quit smoking. cc: Johnny Dobbs MD
== END 2019-12-26 16:40 | disposition home or self-care (01) | DRG 871 ==
LOC: SUPCPDRO → ED 21:41 → SUATTDRO 12-19 00:18 → ICU 12-19 00:18 → 1N 12-23 17:51
PROVIDERS: ADMIT Internal Medicine; ATTEND Internal Medicine